=== PATIENT | female | born 1975 | race Caucasian/White ===

== ENCOUNTER 2017-08-31 16:51 | Emergency (ER) | payer MEDICAID, SELFPAY ==
[2017-08-31 16:53] VITALS: BP 95/66; PULSE 115; RESP 16; TEMP 36.8; O2SAT 100; BMI 19.5
--- NOTE | 2017-08-31 17:33 | ED.DCSUM_ITS ---
- ER Visit Summary Date of Service: 08/31/17 Chief Complaint: Paranoid behavior History of Present Illness: The patient is a 42 F brought in by police for paranoid behavior. Patient states she feels like people are following her. She feels like her Facebook account was hacked. She is concerned that people think she has child pornography. She is not taking her medications because she believes they are poison. She told her boyfriend that she wanted to blow her head off. She denies medical problems. She admits to occasional alcohol use. Denies illicit drug use. She was pink slipped by the police. Physical Examination: Vitals are stable. Patient is afebrile. Alert no acute distress. HEENT exam is unremarkable. Neck is supple. Lungs are clear and equal bilaterally. Heart is regular rate and rhythm. Abdomen is soft nontender nondistended. Extremities are unremarkable. Skin is warm and dry. No focal neurologic deficit. Agitated and paranoid. Remainder of exam is unremarkable. Emergency Department Course and Treatment: She is given Ativan p.o. CBC, chemistries unremarkable. HCG negative. Alcohol is negative. Tox positive for methamphetamine and THC. Discussed with the counseling center for evaluation. Disposition: Per counseling center Impression: Paranoid behavior, suicidal ideation This note was generated with [employer] dictation software. It may contain incorrect words, spelling, and punctuation that were not noted in review of the chart prior to signing ED Disposition - Plan for ED Patient: Chief Complaint: Mental Health Referrals: Care Physician,No Primary [Primary Care Provider] -
[2017-08-31] MEDS: LORazepam 1 MG Tablet PO (17:34)
--- NOTE | 2017-08-31 17:40 | ED.RN ---
PT SITTING UPRIGHT IN BED, SCREAMS AND CURSES AT THIS RN. STATES I'M SO TIRED OF ALL THIS SHIT. SO DEE [facility]ISTA CALLED TO COME SITE WITH PT PER PT REQUEST. MEDICATED WITH ATIVAN.
[2017-08-31 17:48] LABS: Absolute Lymphocyte Count 2.55 X10^3/ul (0.83-4.51); Absolute Neutrophil Count 6.3 X10^3/uL (2.0-7.7); Basophil# 0.02 X10^3/uL; Basophil% 0.2 % (0-1); Eosinophil# 0.16 X10^3/uL; Eosinophils% 1.6 % (0-5); Hematocrit 41.8 % (37-47); Hemoglobin 14.2 g/dl (12.0-15.0); Lymphocyte # 2.55 X10^3/ul (4.0); Lymphocyte % 25.9 % (19-41); Mean Corpuscular Volume 85.3 fL (81-99); Mean Platelet Vol. 9.7 fl (6.2-12.0); Monocyte# 0.81 X10^3/uL; Monocyte% 8.2 % (0-10); Neutrophil # 6.29 X10^3/uL (2.7-7.7); Neutrophil % 63.9 % (47-70); Platelet Count 467 K/mm3 (150-450); RBC Distribution Width CV 13.4 % (11.6-14.6); RBC Distribution Width SD 41.6 fl (35.1-43.9); White Blood Count 9.9 K/mm3 (4.4-11.0)
[2017-08-31 17:52] LABS: Anion Gap 13 (5-15); BUN 16 mg/dL (7-18); BUN/Creat Ratio 21.4 RATIO (10-20); Chloride 104 mmol/L (98-107); Creatinine, Serum 0.75 mg/dL (0.55-1.02); EST Glomerular Filtration Rate 89 mL/min (>60); Est Glom Filt Rate - Afr Amer 108 mL/min (>60); Estimated Creatinine Clearance 68.54 ml/min; Glucose 95 mg/dL (74-106); Potassium 3.8 mmol/L (3.5-5.1); Sodium Level 140 mmol/L (136-145)
[2017-08-31 18:07] LABS: POSITIVE COUNT NO; POSITIVE DIFFERENTIAL NO; POSITIVE MORPHOLOGY NO
[2017-08-31 18:18] LABS: Pregnancy, Serum, hCG Quali. NEGATIVE Negative (0-9 Nonpreg)
--- NOTE | 2017-08-31 18:25 | ED.RN ---
PT SITTING UP IN BED, TEARFUL BUT COOPERATIVE AT THIS TIME. OBTAINED URINE SAMPLE, ANOTHER BLANKET GIVEN. SANDWICH, COOKIES, SNACK MIX AND COFFEE GIVEN TO PT PER REQUEST. REFUSES TO LET THIS RN OBTAIN VITALS AT THIS TIME.
--- NOTE | 2017-08-31 18:28 | ED.RN ---
PT DENIES SUICIDAL OR HOMICIDAL IDEATIONS, DENIES AUDITORY OR VISUAL HALLUCINATIONS. SEE PINK SLIP BY POLICE, SO STATES PT THREATENED TO BLOW HEAD OFF. PER SO ALSO HALLUCINATING.
[2017-08-31 19:00] VITALS: RESP 16
[2017-08-31 19:18] LABS: Amphetamine Urine VISTA POSITIVE (<1000 ng/mL); Barbiturate Urine VISTA NEGATIVE (< 200 ng/mL); Benzodiazepine Urine VISTA NEGATIVE (< 200 ng/mL); Cocaine Urine VISTA NEGATIVE (< 300 ng/mL); Ecstacy Urine VISTA POSITIVE (< 500 ng/mL); Methadone Urine VISTA NEGATIVE (< 300 ng/mL); PCP Urine VISTA NEGATIVE (< 25 ng/mL); THC Urine VISTA POSITIVE (< 50 ng/mL); Vista UDS pH Range 6
[2017-08-31 20:00] VITALS: RESP 18
[2017-08-31 21:00] VITALS: RESP 18
[2017-08-31 22:00] VITALS: RESP 16
[2017-08-31 23:00] VITALS: RESP 14
[2017-09-01] VITALS (9 sets, daily range): PULSE 102–112; RESP 14–20; O2SAT 96
[2017-09-01] MEDS: LORazepam 1 MG Tablet PO (06:02)
--- NOTE | 2017-09-01 06:11 | NURSING ---
PT REFUSED TO LET RN TAKE VITAL SIGNS
--- NOTE | 2017-09-01 07:09 | NURSING ---
CALLED [facility] FOR TRANSPORT. ETA IS ABOUT 1 HR
--- NOTE | 2017-09-01 08:30 | NURSING ---
Addendum entered by Lisa Massey 09/01/17 08:32: ATTEMPTED TO CALL BOTH PARTIES PER REQUEST BY PT TO NOTIFY OF TRANSFER TO [facility] Original Note: ATTEMPTED TO CALL BOTH PT'S BOYFRIEND (DEE) AND FATHER (EZIO) WITHOUT SUCCESS. BOTH HAD NO ANSWER TO TELEPHONE CALL AND NO VM TO LEAVE ANSWER.
== END 2017-09-01 08:18 ==
PROVIDERS: Emergency Provider Emergency Medicine
DX: R45.851 Suicidal ideations (principal); F60.0 Paranoid personality disorder; Z72.0 Tobacco use
CPT/HCPCS: 80048; 80307; 80320; 84703; 85025; 99284; G0480

== ENCOUNTER 2017-12-27 10:49 | Emergency (ER) | payer MEDICAID, SELFPAY ==
[2017-12-27 10:51] VITALS: BP 152/97; PULSE 112; RESP 18; TEMP 36.8; O2SAT 100; BMI 20.5
[2017-12-27 12:37] LABS: Absolute Lymphocyte Count 2.84 X10^3/ul (0.83-4.51); Absolute Neutrophil Count 8.5 X10^3/uL (2.0-7.7); Basophil# 0.02 X10^3/uL; Basophil% 0.2 % (0-1); Eosinophils% 0.8 % (0-5); Hematocrit 44.2 % (37-47); Hemoglobin 15.3 g/dl (12.0-15.0); Lymphocyte # 2.84 X10^3/ul (4.0); Lymphocyte % 22.7 % (19-41); Mean Corp Hgb Conc 34.6 g/gl (32-36); Mean Corpuscular Hgb 30.1 pg (27.0-32.0); Mean Platelet Vol. 9.8 fl (6.2-12.0); Monocyte# 0.99 X10^3/uL; Monocyte% 7.9 % (0-10); Neutrophil # 8.51 X10^3/uL (2.7-7.7); Neutrophil % 68.2 % (47-70); POSITIVE COUNT NO; POSITIVE DIFFERENTIAL NO; POSITIVE MORPHOLOGY NO; Platelet Count 386 K/mm3 (150-450); RBC Distribution Width CV 13.2 % (11.6-14.6); RBC Distribution Width SD 41.3 fl (35.1-43.9); Red Blood Count 5.08 M/mm3 (4.2-5.4); White Blood Count 12.5 K/mm3 (4.4-11.0)
[2017-12-27 12:51] LABS: Anion Gap 9 (5-15); BUN 19 mg/dL (7-18); BUN/Creat Ratio 24.3 RATIO (10-20); Calcium,Total 9.8 mg/dL (8.5-10.1); Chloride 104 mmol/L (98-107); Creatinine, Serum 0.78 mg/dL (0.55-1.02); EST Glomerular Filtration Rate 85 mL/min (>60); Est Glom Filt Rate - Afr Amer 102 mL/min (>60); Estimated Creatinine Clearance 66.11 ml/min; Glucose 102 mg/dL (74-106); Sodium Level 139 mmol/L (136-145)
[2017-12-27 12:57] LABS: Pregnancy, Serum, hCG Quali. NEGATIVE Negative (0-9 Nonpreg)
[2017-12-27] MEDS: Haloperidol Lactate 5 MG/ML Vial 2 MG IM ×2 (13:04→16:23)
[2017-12-27] MEDS: Midazolam 2 MG/2 ML Syringe IM ×2 (13:04→16:23)
[2017-12-27 14:20] VITALS: PULSE 81; RESP 16; O2SAT 99
[2017-12-27 14:39] LABS: Amphetamine Urine VISTA POSITIVE (<1000 ng/mL); Barbiturate Urine VISTA NEGATIVE (< 200 ng/mL); Benzodiazepine Urine VISTA POSITIVE (< 200 ng/mL); Cocaine Urine VISTA NEGATIVE (< 300 ng/mL); Ecstacy Urine VISTA NEGATIVE (< 500 ng/mL); Methadone Urine VISTA NEGATIVE (< 300 ng/mL); PCP Urine VISTA NEGATIVE (< 25 ng/mL); THC Urine VISTA POSITIVE (< 50 ng/mL); Vista UDS pH Range 6
--- NOTE | 2017-12-27 15:13 | ED.VISSUMM ---
- ER Visit Summary Date of Service: 12/27/17 Chief Complaint: Brought to hospital by EMS because of change in behavior History of Present Illness: The patient is a 42 F who according to 7th grade social studies teacher from [facility] has a psychiatric disorder. There are no old records for review. Patient is not cooperative. She has demonstrated paranoid ideation and has abnormal thought processes and judgment. She is not cooperative and does not wish to answer any questions. She informed me that she answered a number of questions. She asked if I would let her go home. She was informed that she cannot go home. Patient began to scream. Physical Examination: Vital signs are marked for an elevated blood pressure 152/91. Heart rate 112. This may be for multiple reasons. Head is atraumatic normocephalic. Pupils are equal round reactive. Extraocular muscles are intact. TMs are pearly white with landmarks noted. Nares patent with no drainage. Posterior pharynx without erythema or exudate. Uvula is midline. There is no dysphonia or dysphasia. Trachea is midline. There is no stridor with auscultation of the neck. Insert cardiopulmonary exam. Unable to perform abdominal or neuro exam. Test Results: White count slightly elevated 12.5 which may be secondary to drug use. Electro panels unremarkable. Serum test is negative. Alcohol is negative. Tox screen is positive for benzodiazepines, amphetamine and cannabis. Emergency Department Course and Treatment: Appropriate screening tests were obtained for medical clearance for psychiatric admission. Treatment Plan: Because of patient's behavior she was treated with IM Haldol and Versed. There essentially is been no change in her behavior. Disposition: [facility] the [facility] 7th grade social studies teacher did see her and is working on disposition to psychiatric facility. Impression: 1. Acute psychosis 2. Paranoid ideation 3. Inability to care for self 4. Illicit drug use This note was generated with [employer] dictation software. It may contain incorrect words, spelling, and punctuation that were not noted in review of the chart prior to signing ED Disposition - Plan for ED Patient: Chief Complaint: Mental Health Referrals: Care Physician,No Primary [Primary Care Provider] -
--- NOTE | 2017-12-27 15:16 | ED.DCSUM_ITS ---
- ER Visit Summary Date of Service: 12/27/17 Chief Complaint: Brought to hospital by EMS because of change in behavior History of Present Illness: The patient is a 42 F who according to acid conditioning worker from [facility] has a psychiatric disorder. There are no old records for review. Patient is not cooperative. She has demonstrated paranoid ideation and has abnormal thought processes and judgment. She is not cooperative and does not wish to answer any questions. She informed me that she answered a number of questions. She asked if I would let her go home. She was informed that she cannot go home. Patient began to scream. Physical Examination: Vital signs are marked for an elevated blood pressure 152/ 91. Heart rate 112. This may be for multiple reasons. Head is atraumatic normocephalic. Pupils are equal round reactive. Extraocular muscles are intact. TMs are pearly white with landmarks noted. Nares patent with no drainage. Posterior pharynx without erythema or exudate. Uvula is midline. There is no dysphonia or dysphasia. Trachea is midline. There is no stridor with auscultation of the neck. Insert cardiopulmonary exam. Unable to perform abdominal or neuro exam. Test Results: White count slightly elevated 12.5 which may be secondary to drug use. Electro panels unremarkable. Serum test is negative. Alcohol is negative. Tox screen is positive for benzodiazepines, amphetamine and cannabis. Emergency Department Course and Treatment: Appropriate screening tests were obtained for medical clearance for psychiatric admission. Treatment Plan: Because of patient's behavior she was treated with IM Haldol and Versed. There essentially is been no change in her behavior. Disposition: [facility]ady the [facility] acid conditioning worker did see her and is working on disposition to psychiatric facility. Impression: 1. Acute psychosis 2. Paranoid ideation 3. Inability to care for self 4. Illicit drug use This note was generated with [employer] dictation software. It may contain incorrect words, spelling, and punctuation that were not noted in review of the chart prior to signing ED Disposition - Plan for ED Patient: Chief Complaint: Mental Health Referrals: Care Physician,No Primary [Primary Care Provider] -
[2017-12-27 15:24] VITALS: BP 127/88; PULSE 109; RESP 16; O2SAT 100
[2017-12-27 17:57] VITALS: BP 104/65; PULSE 85; RESP 19; O2SAT 100
--- NOTE | 2017-12-27 18:16 | ED.RN ---
[facility] WILL BE COMING TO TRANSFER PATIENT BETWEEN 8:30-9:00
[2017-12-27 18:35] VITALS: BP 103/74; PULSE 78; RESP 18; O2SAT 96
[2017-12-27 19:15] VITALS: BP 119/84; PULSE 85; RESP 18; O2SAT 99
== END 2017-12-27 20:59 ==
PROVIDERS: Emergency Provider Emergency Medicine
DX: F22 Delusional disorders (principal); F15.90 Other stimulant use, unspecified, uncomplicated; F12.90 Cannabis use, unspecified, uncomplicated; Z72.0 Tobacco use
CPT/HCPCS: 80048; 80307; 80320; 84703; 85025; 96372; 99285; J7030; G0480

== ENCOUNTER 2018-02-15 10:52 | Emergency (ER) | payer MEDICAID, SELFPAY ==
[2018-02-15 10:55] VITALS: BP 122/100; PULSE 108; PULSE 115; RESP 20; RESP 22; TEMP 37.1; O2SAT 98; O2SAT 99; BMI 22.1
[2018-02-15] MEDS: LORazepam 2 MG/ML Syringe 1 MG IV (11:17)
[2018-02-15 11:35] LABS: Absolute Lymphocyte Count 2.42 X10^3/ul (0.83-4.51); Absolute Neutrophil Count 7.3 X10^3/uL (2.0-7.7); Basophil# 0.02 X10^3/uL; Basophil% 0.2 % (0-1); Hematocrit 40.9 % (37-47); Hemoglobin 13.4 g/dl (12.0-15.0); Lymphocyte # 2.42 X10^3/ul (4.0); Lymphocyte % 23.3 % (19-41); Mean Corp Hgb Conc 32.8 g/gl (32-36); Mean Corpuscular Hgb 29.6 pg (27.0-32.0); Mean Corpuscular Volume 90.3 fL (81-99); Mean Platelet Vol. 9.5 fl (6.2-12.0); Monocyte# 0.57 X10^3/uL; Monocyte% 5.5 % (0-10); Neutrophil # 7.27 X10^3/uL (2.7-7.7); Neutrophil % 69.8 % (47-70); Platelet Count 323 K/mm3 (150-450); RBC Distribution Width SD 42.6 fl (35.1-43.9); Red Blood Count 4.53 M/mm3 (4.2-5.4); White Blood Count 10.4 K/mm3 (4.4-11.0)
[2018-02-15 11:36] LABS: POSITIVE COUNT NO; POSITIVE DIFFERENTIAL NO; POSITIVE MORPHOLOGY NO
[2018-02-15 11:59] VITALS: RESP 20
[2018-02-15 12:15] LABS: Bacteria 0 SEEN /hpf (None Seen); Mucous, Urine 0 SEEN /hpf (<or=2+); Red Blood Cells-Urine 0 SEEN /hpf (0-5); Squamous Epithelial Cells - UA 0 SEEN /hpf (5-10)
[2018-02-15 12:25] VITALS: BP 122/102; PULSE 108; RESP 20; O2SAT 95
[2018-02-15 12:26] LABS: Color, Urine Yellow (Yellow); Glucose, Dipstick Normal (Normal); Ketone-Dipstick Negative (Negative); Leukocyte Esterase-Dipstick 25 /ul (Negative); Nitrite-Dipstick Negative (Negative); Occult Blood-Urine Negative /ul (Negative); Protein-Dipstick Negative (Negative); Urine Bilirubin Dipstick Negative (Negative); Urine Clarity Sl. Cloudy (Clear); Urine Urobilinogen Normal (Normal)
--- NOTE | 2018-02-15 12:27 | ED.RN ---
attempted to call pt's father per pt's request, was unable to get in contact with him at this time.
[2018-02-15 12:33] LABS: Amphetamine Urine VISTA NEGATIVE (<1000 ng/mL); Barbiturate Urine VISTA NEGATIVE (< 200 ng/mL); Benzodiazepine Urine VISTA NEGATIVE (< 200 ng/mL); Cocaine Urine VISTA NEGATIVE (< 300 ng/mL); Ecstacy Urine VISTA NEGATIVE (< 500 ng/mL); Methadone Urine VISTA NEGATIVE (< 300 ng/mL); PCP Urine VISTA NEGATIVE (< 25 ng/mL); THC Urine VISTA POSITIVE (< 50 ng/mL); Vista UDS pH Range 6
[2018-02-15] MEDS: LORazepam 2 MG/ML Syringe 0.5 MG IV (12:40)
[2018-02-15 12:43] LABS: Transitional Epithelial - Ur 0-5 SEEN /hpf (0-5); White Blood Cells 0-5 SEEN /hpf (0-5)
[2018-02-15 13:16] VITALS: RESP 14
[2018-02-15 14:22] LABS: Anion Gap 10 (5-15); BUN 13 mg/dL (7-18); BUN/Creat Ratio 19.5 RATIO (10-20); Calcium,Total 9.4 mg/dL (8.5-10.1); Chloride 105 mmol/L (98-107); Creatinine, Serum 0.67 mg/dL (0.55-1.02); EST Glomerular Filtration Rate 102 mL/min (>60); Est Glom Filt Rate - Afr Amer 123 mL/min (>60); Estimated Creatinine Clearance 76.97 ml/min; Glucose 88 mg/dL (74-106); Sodium Level 140 mmol/L (136-145); Thyroid Stim Hormone (TSH) 0.29 uIU/mL (0.358-3.74)
--- NOTE | 2018-02-15 15:12 | ED.DCSUM_ITS ---
- ER Visit Summary Date of Service: 02/15/18 Chief Complaint: Anxiety History of Present Illness: The patient is a 42 F brought in by EMS for anxiety. Patient is sobbing and rocking back and forth. She states several factors have contributed to her worsening anxiety. After further interaction with nursing staff they state the patient tells them that she has no place to live and does not feel comfortable living with her boyfriend any longer. There are drugs in the house with a boyfriend lives. Patient admits to using meth. She states her last use was on February 12. Patient denies suicidal or homicidal ideation. Physical Examination: Blood pressure is 122/100, temperature 98.8, heart rate 115, respiratory rate 22, pulse ox 99% on room air. Patient sitting upright in the bed, rocking back and forth and crying. Heart is regular rhythm and slightly tachycardic. Lung sounds are clear. Abdomen is soft and nontender. Patient denies suicidal or homicidal ideation. Test Results: CBC and chemistry studies unremarkable. Urinalysis negative. TSH slightly low at 0.29. Tox screen is positive for cannabinoids. EtOH is negative. Emergency Department Course and Treatment: Patient was given 1 mg of IV Ativan followed later by 0.5 mg of IV Ativan. She was seen by counselor from the counseling center. She feels the patient would be a good candidate for the outpatient intensive therapy program through behavioral health. Patient is given information on this. Nursing staff did also state that when the patient stops to ask to go out to smoke she has no crying or signs of distress. When I went back into reevaluate the patient she is sitting in a bedside chair fully dressed. She is still crying. She states that she feels like she is crawling out of her skin. I offered her Benadryl to help with this. Patient stood with the side of the bed, stomped her feet, and stated I am a drug addict. Benadryl will not help me. Patient tells me that she needs additional Ativan. I advised her I would not be writing her Ativan. At this time she is to follow-up with behavioral health. I will also refer her to a primary care physician for further follow-up including thyroid evaluation. Treatment Plan: [] Disposition: Discharge Impression: Anxiety This note was generated with [email or web address] dictation software. It may contain incorrect words, spelling, and punctuation that were not noted in review of the chart prior to signing ED Disposition - Plan for ED Patient: Chief Complaint: Anxiety Referrals: Care Physician,No Primary [Primary Care Provider] -
[2018-02-15 15:21] VITALS: RESP 20
--- NOTE | 2018-02-15 15:22 | ED.RN ---
PT WAS HAVING MULTIPLE EMOTIONAL OUTBURSTS WITH SCREAMING AND CRYING, WITH PT STATING NO ONE IS GOING TO HELP ME, EVERYONE IS OUT TO GET ME. I SAT BEDSIDE WITH PT USING THERAPEUTIC COMMUNICATION TO HELP PT DEVELOP A PLAN TO SUCCEED WITH SOBRIETY. PT DECLINES ALL HELP AND SUGGESTIONS OFFERED. PT WALKED OFF UNIT VIA AMBULATION PRIOR TO RECEIVING D/C INSTRUCTIONS AFTER BEING INFORMED THAT SHE WOULD NOT BE RECEIVING A PRESCRIPTION FOR ATIVAN. OFF UNIT VIA AMBULATION STEADY GAIT.
== END 2018-02-15 15:27 | disposition home or self-care (01) ==
PROVIDERS: Emergency Provider Emergency Medicine
DX: F41.9 Anxiety disorder, unspecified (principal); Z72.0 Tobacco use; Z79.899 Other long term (current) drug therapy
CPT/HCPCS: 80048; 80307; 80320; 81001; 84443; 85025; 96374; 96376; 99284; A4216; G0480

== ENCOUNTER 2018-03-30 17:43 | Emergency (ER) | payer SELFPAY ==
[2018-03-30 17:44] VITALS: PULSE 92; RESP 26; TEMP 36.8; O2SAT 99; BMI 20.7
[2018-03-30] MEDS: LORazepam 2 MG/ML Syringe 1 MG IV (18:43)
[2018-03-30 18:45] VITALS: RESP 14
[2018-03-30 19:14] LABS: Absolute Lymphocyte Count 2.87 X10^3/ul (0.83-4.51); Absolute Neutrophil Count 7.5 X10^3/uL (2.0-7.7); Basophil# 0.03 X10^3/uL; Basophil% 0.3 % (0-1); Eosinophil# 0.16 X10^3/uL; Eosinophils% 1.4 % (0-5); Hematocrit 43.9 % (37-47); Hemoglobin 14.5 g/dl (12.0-15.0); Lymphocyte # 2.87 X10^3/ul (4.0); Lymphocyte % 25.1 % (19-41); Mean Corpuscular Hgb 29.8 pg (27.0-32.0); Mean Corpuscular Volume 90.3 fL (81-99); Mean Platelet Vol. 9.4 fl (6.2-12.0); Monocyte# 0.85 X10^3/uL; Monocyte% 7.4 % (0-10); Neutrophil # 7.52 X10^3/uL (2.7-7.7); Neutrophil % 65.6 % (47-70); POSITIVE COUNT NO; POSITIVE DIFFERENTIAL NO; POSITIVE MORPHOLOGY NO; Platelet Count 342 K/mm3 (150-450); RBC Distribution Width CV 12.9 % (11.6-14.6); RBC Distribution Width SD 42.2 fl (35.1-43.9); Red Blood Count 4.86 M/mm3 (4.2-5.4); White Blood Count 11.5 K/mm3 (4.4-11.0)
[2018-03-30 19:18] VITALS: RESP 14
[2018-03-30 19:28] LABS: Alcohol, Blood (Medical)-Serum < 3.0 mg/dL
[2018-03-30 19:41] LABS: Anion Gap 6 (5-15); BUN 8 mg/dL (7-18); Calcium,Total 9.3 mg/dL (8.5-10.1); Chloride 102 mmol/L (98-107); EST Glomerular Filtration Rate 83 mL/min (>60); Est Glom Filt Rate - Afr Amer 100 mL/min (>60); Estimated Creatinine Clearance 67.72 ml/min; Glucose 127 mg/dL (74-106); Potassium 3.6 mmol/L (3.5-5.1); Sodium Level 135 mmol/L (136-145)
[2018-03-30 19:47] LABS: Pregnancy, Serum, hCG Quali. NEGATIVE Negative (0-9 Nonpreg)
[2018-03-30 21:18] VITALS: BP 141/80; PULSE 89; RESP 14; O2SAT 96
[2018-03-30 21:47] LABS: Mucous, Urine 0 SEEN /hpf (<or=2+)
[2018-03-30 21:55] LABS: Color, Urine Yellow (Yellow); Glucose, Dipstick Normal (Normal); Ketone-Dipstick Negative (Negative); Leukocyte Esterase-Dipstick 500 /ul (Negative); Nitrite-Dipstick Positive (Negative); Occult Blood-Urine 25 /ul (Negative); Protein-Dipstick 30 mg/dl (Negative); Urine Bilirubin Dipstick Negative (Negative); Urine Clarity Sl. Cloudy (Clear); Urine Urobilinogen 1 mg/dl (Normal); Urine pH 6.5 (5.0 - 8.0)
[2018-03-30 21:59] LABS: Red Blood Cells-Urine 0-5 SEEN /hpf (0-5); Squamous Epithelial Cells - UA 0-5 SEEN /hpf (5-10); White Blood Cells 50-100 SEEN /hpf (0-5)
[2018-03-30 22:00] LABS: Bacteria 3+ /hpf (None Seen)
[2018-03-30 22:03] LABS: Amphetamine Urine VISTA POSITIVE (<1000 ng/mL); Barbiturate Urine VISTA NEGATIVE (< 200 ng/mL); Benzodiazepine Urine VISTA NEGATIVE (< 200 ng/mL); Cocaine Urine VISTA NEGATIVE (< 300 ng/mL); Ecstacy Urine VISTA NEGATIVE (< 500 ng/mL); Methadone Urine VISTA NEGATIVE (< 300 ng/mL); PCP Urine VISTA NEGATIVE (< 25 ng/mL); THC Urine VISTA POSITIVE (< 50 ng/mL); Vista UDS pH Range 6
--- NOTE | 2018-03-30 22:41 | ED.VISSUMM ---
- ER Visit Summary Date of Service: 03/30/18 Chief Complaint: customs and immigration officer thought I should come to the emergency department History of Present Illness: The patient is a 42 F who has history of bipolar affective disorder, illicit drug use was brought to the emergency room by police. She was not pink slip. There was no suicidal or homicidal ideation. She initially was verbally abusive and agitated. She initially would not allow the nurse to obtain her vitals, exam and her or establish IV and draw blood. When I entered the room she began to yell. I informed her that she needs to be cooperative. She informed me that the only reason she is here is because the restoration officer told her that it would be in her best interest. She states she has been with her boyfriend for the past 10 years. I was informed by the crisis license rn social services that boyfriend will not evicted from the house because he feels sorry for her. She reports that she has not left the house in 3 years. She then began to yell stating that she never said that. She was explaining and answered a question I asked and then began to talk about dog saliva and eye infection. Patient does admit to smoking and admits to methamphetamine use. She also admits that she has not been compliant with her medication. Physical Examination: Vital signs noted. Initially blood pressure was not obtainable. Vital signs that were documented were normal. Pressure is elevated 141/80. Head is atraumatic normocephalic. Pupils are equal round reactive. Extraocular muscles are intact. TMs are pearly white with landmarks noted. Nares patent with no drainage. Posterior pharynx without erythema or exudate. Uvula is midline. There is no dysphonia or dysphasia. Trachea is midline. There is no stridor with auscultation of the neck. Heart is regular without murmur, gallop or rub. S1 and S2 are normal. Lungs are clear to auscultation with good movement of air bilaterally. No evidence of self-inflicted injury. Neuro exam is nonfocal. She denies suicidal homicidal ideation peer she does admit to methamphetamine use. Her speech is pressured. Her thought is fragmented and there is flight of ideas. She is easily agitated and irritable. Test Results: White count is slightly elevated 11.5 which is insignificant. Basic medical panel reveals a glucose of 127, which is insignificant. Alcohol negative. Tox was positive for cannabis and amphetamines. test was negative. Emergency Department Course and Treatment: IV was established she was treated with 1 mg of Ativan with marked improvement in her behavior. Treatment Plan: She was assessed by the licensed guide who will arrange outpatient follow-up and drug counseling Disposition: Discharged to home Impression: 1. Acute psychosis and agitation secondary to amphetamine use 2. Hypomania secondary to amphetamine use 3. History of bipolar affective disorder This note was generated with [employer] dictation software. It may contain incorrect words, spelling, and punctuation that were not noted in review of the chart prior to signing ED Disposition - Plan for ED Patient: Disposition: Home or Assisted Living Chief Complaint: Mental Health Instructions: ED Manic Depression, ED Drug Abuse General Referrals: Care Physician,No Primary [Primary Care Provider] - Counseling,Center [GROUP OF PHYSICIANS] - Keep Jud appointment
--- NOTE | 2018-03-30 22:46 | ED.DCSUM_ITS ---
- ER Visit Summary Date of Service: 03/30/18 Chief Complaint: escrow officer thought I should come to the emergency department History of Present Illness: The patient is a 42 F who has history of bipolar affective disorder, illicit drug use was brought to the emergency room by police. She was not pink slip. There was no suicidal or homicidal ideation. She initially was verbally abusive and agitated. She initially would not allow the nurse to obtain her vitals, exam and her or establish IV and draw blood. When I entered the room she began to yell. I informed her that she needs to be cooperative. She informed me that the only reason she is here is because the training and development officer told her that it would be in her best interest. She states she has been with her boyfriend for the past 10 years. I was informed by the crisis license social media project manager that boyfriend will not evicted from the house because he feels sorry for her. She reports that she has not left the house in 3 years. She then began to yell stating that she never said that. She was explaining and answered a question I asked and then began to talk about dog saliva and eye infection. Patient does admit to smoking and admits to methamphetamine use. She also admits that she has not been compliant with her medication. Physical Examination: Vital signs noted. Initially blood pressure was not obtainable. Vital signs that were documented were normal. Pressure is elevated 141/80. Head is atraumatic normocephalic. Pupils are equal round reactive. Extraocular muscles are intact. TMs are pearly white with landmarks noted. Nares patent with no drainage. Posterior pharynx without erythema or exudate. Uvula is midline. There is no dysphonia or dysphasia. Trachea is midline. There is no stridor with auscultation of the neck. Heart is regular without murmur, gallop or rub. S1 and S2 are normal. Lungs are clear to auscultation with good movement of air bilaterally. No evidence of self-inflicted injury. Neuro exam is nonfocal. She denies suicidal homicidal ideation peer she does admit to methamphetamine use. Her speech is pressured. Her thought is fragmented and there is flight of ideas. She is easily agitated and irritable. Test Results: White count is slightly elevated 11.5 which is insignificant. Basic medical panel reveals a glucose of 127, which is insignificant. Alcohol negative. Tox was positive for cannabis and amphetamines. test was negative. Emergency Department Course and Treatment: IV was established she was treated with 1 mg of Ativan with marked improvement in her behavior. Treatment Plan: She was assessed by the licensed embalmer who will arrange outpatient follow-up and drug counseling Disposition: Discharged to home Impression: 1. Acute psychosis and agitation secondary to amphetamine use 2. Hypomania secondary to amphetamine use 3. History of bipolar affective disorder This note was generated with [employer] dictation software. It may contain incorrect words, spelling, and punctuation that were not noted in review of the chart prior to signing ED Disposition - Plan for ED Patient: Disposition: Home or Assisted Living Chief Complaint: Mental Health Instructions: ED Manic Depression, ED Drug Abuse General Referrals: Care Physician,No Primary [Primary Care Provider] - Counseling,Center [GROUP OF PHYSICIANS] - Keep Jud appointment
[2018-03-30 23:00] VITALS: BP 132/77; PULSE 85; RESP 14; O2SAT 98
== END 2018-03-31 00:20 | disposition home or self-care (01) ==
PROVIDERS: Emergency Provider Emergency Medicine
DX: F23 Brief psychotic disorder (principal); R45.1 Restlessness and agitation; F30.8 Other manic episodes; F15.90 Other stimulant use, unspecified, uncomplicated; F31.9 Bipolar disorder, unspecified; Z91.14 Patient's other noncompliance with medication regimen; Z72.0 Tobacco use; Z79.899 Other long term (current) drug therapy
CPT/HCPCS: 80048; 80307; 80320; 81001; 84443; 84703; 85025; 96374; 99282; A4216; G0480

== ENCOUNTER 2018-04-01 11:30 | Emergency (ER) | payer SELFPAY ==
[2018-04-01] VITALS (9 sets, daily range): BP systolic 113–128; BP diastolic 81–94; PULSE 70–125; RESP 14–25; TEMP 36.3–36.9; O2SAT 98; BMI 19.5
--- NOTE | 2018-04-01 11:35 | ED.RN ---
pt arrives to er via pd. pt is pink slipped by pd. pt denies suicidal ideation. pt is very agitated, anxious and had intermittent periods of yelling with periods of calm and pleasant between. states last pot use was this am and last meth use was a few days ago.
--- NOTE | 2018-04-01 11:52 | NURSING ---
CONTACT LIZETH MARTINEZ [phone]
[2018-04-01] MEDS: LORazepam 2 MG/ML Syringe IM (12:01)
--- NOTE | 2018-04-01 12:02 | ED.RN ---
pt angry and swearing loudly. Pt refused haldol. Ativan given. PT states she will not leave or go anyplace against her will or she will raise holy hell. PT informed to keep her voice down and not swear.
[2018-04-01 12:08] LABS: Absolute Lymphocyte Count 2.19 X10^3/ul (0.83-4.51); Absolute Neutrophil Count 5.8 X10^3/uL (2.0-7.7); Basophil# 0.04 X10^3/uL; Basophil% 0.4 % (0-1); Eosinophil# 0.17 X10^3/uL; Eosinophils% 1.9 % (0-5); Hematocrit 40.9 % (37-47); Lymphocyte # 2.19 X10^3/ul (4.0); Lymphocyte % 24.4 % (19-41); Mean Corp Hgb Conc 34.2 g/gl (32-36); Mean Corpuscular Hgb 30.7 pg (27.0-32.0); Mean Corpuscular Volume 89.7 fL (81-99); Mean Platelet Vol. 9.5 fl (6.2-12.0); Monocyte# 0.73 X10^3/uL; Monocyte% 8.1 % (0-10); Neutrophil # 5.84 X10^3/uL (2.7-7.7); Neutrophil % 65.1 % (47-70); Platelet Count 363 K/mm3 (150-450); RBC Distribution Width CV 12.5 % (11.6-14.6); RBC Distribution Width SD 40.4 fl (35.1-43.9); Red Blood Count 4.56 M/mm3 (4.2-5.4)
[2018-04-01 12:16] LABS: Anion Gap 7 (5-15); BUN 7 mg/dL (7-18); BUN/Creat Ratio 8.3 RATIO (10-20); Calcium,Total 8.8 mg/dL (8.5-10.1); Chloride 103 mmol/L (98-107); Creatinine, Serum 0.84 mg/dL (0.55-1.02); EST Glomerular Filtration Rate 78 mL/min (>60); Est Glom Filt Rate - Afr Amer 94 mL/min (>60); Glucose 95 mg/dL (74-106); POSITIVE COUNT NO; POSITIVE DIFFERENTIAL NO; POSITIVE MORPHOLOGY NO; Potassium 3.5 mmol/L (3.5-5.1); Sodium Level 136 mmol/L (136-145)
[2018-04-01 12:21] LABS: Pregnancy, Serum, hCG Quali. NEGATIVE Negative (0-9 Nonpreg)
--- NOTE | 2018-04-01 12:38 | ED.RN ---
PT DRINKING COFFEE, TALKING VERY RESPECTFULLY TO SITTER AND HAS A GOOD DEMEANOR WITH HER.
--- NOTE | 2018-04-01 13:23 | NURSING ---
CALLED CRISIS AT [phone]
--- NOTE | 2018-04-01 13:39 | ED.RN ---
WENT TO RESTROOM. SITTER DID NOT OBTAIN URINE SAMPLE. PENDING CRISIS COUNSELOR.
[2018-04-01 14:26] LABS: Amphetamine Urine VISTA POSITIVE (<1000 ng/mL); Barbiturate Urine VISTA NEGATIVE (< 200 ng/mL); Benzodiazepine Urine VISTA NEGATIVE (< 200 ng/mL); Cocaine Urine VISTA NEGATIVE (< 300 ng/mL); Ecstacy Urine VISTA NEGATIVE (< 500 ng/mL); Methadone Urine VISTA NEGATIVE (< 300 ng/mL); PCP Urine VISTA NEGATIVE (< 25 ng/mL); THC Urine VISTA POSITIVE (< 50 ng/mL); Vista UDS pH Range 6
--- NOTE | 2018-04-01 14:27 | EKG12_ITS ---
Test Reason : MENTAL HEALTH Blood Pressure : / mmHG Vent. Rate : 103 BPM Atrial Rate : 103 BPM P-R Int : 148 ms QRS Dur : 072 ms QT Int : 320 ms P-R-T Axes : 069 056 061 degrees QTc Int : 419 ms Sinus tachycardia Otherwise normal ECG Confirmed by KG GUAMAN, KARLA ([id number]), design editor RUSTY KNUTSON ([id number] on 04/03/2018 10:27:16 AM Referred By: EMERY Confirmed By:KARLA SAUL MD
[2018-04-01 14:35] LABS: Bacteria 0 SEEN /hpf (None Seen); Mucous, Urine 0 SEEN /hpf (<or=2+); Red Blood Cells-Urine 0 SEEN /hpf (0-5); Squamous Epithelial Cells - UA 0 SEEN /hpf (5-10); White Blood Cells 0 SEEN /hpf (0-5)
[2018-04-01 14:48] LABS: AST(SGOT) 18 U/L (15-37); Alanine Aminotransfer ALT/SGPT 21 U/L (13-56); Alkaline Phosphatase 87 U/L (45-117); Bilirubin, Direct 0.09 mg/dL (0.00-0.30); Globulin 3.8 g/dL (2.2-4.2); Protein, Total 7.8 g/dL (6.4-8.2)
[2018-04-01 14:52] LABS: Color, Urine Yellow (Yellow); Glucose, Dipstick Normal (Normal); Ketone-Dipstick Negative (Negative); Leukocyte Esterase-Dipstick 25 /ul (Negative); Nitrite-Dipstick Negative (Negative); Occult Blood-Urine Negative /ul (Negative); Protein-Dipstick Negative (Negative); Specific Gravity, Urine 1.005 (1.002-1.030); Urine Bilirubin Dipstick Negative (Negative); Urine Clarity Clear (Clear); Urine Urobilinogen Normal (Normal)
[2018-04-01 15:01] LABS: Amorphous Sediment 1+
--- NOTE | 2018-04-01 15:30 | ED.RN ---
PT WAS INFORMED BY CRISIS COUNSELOR THAT SHE WOULD BE ADMITTED. PT IS NOW VERBALLY SHOUTING, SECURITY AT BEDSIDE. PT IS A FLIGHT RISK AND IS EXCALATING TOWARDS VIOLENCE AGAINST NURSES AND FLIGHT RISK.
--- NOTE | 2018-04-01 15:41 | ED.VISSUMM ---
- ER Visit Summary Date of Service: 04/01/18 Chief Complaint: [Agitation and anxiety] History of Present Illness: The patient is a 42 F [presents the emergency department via the police. Patient's brother called police because patient has been extremely labile and agitated. Patient apparently has been having auditory and visual hallucinations. Patient has history of bipolar disorder and anxiety and has been without her medications apparently for several days. Patient was seen in the emergency department 2 days ago and was discharged to home. Patient apparently per her brother has been a drug addict for over 25 years and has used mostly methamphetamines. Patient will not speak to me or give me any history.] Physical Examination: [HEENT-PERRLA, EOMI. Cranial nerves II through XII grossly intact. TMs clear. Mucous membranes moist. No adenopathy. Cardiovascular-regular rate and rhythm without murmur or ectopy Lungs-clear to auscultation, chest wall stable without crepitus or subcu emphysema Abdomen-normoactive bowel sounds, soft, nontender, no rebound or rigidity, no peritoneal signs. Extremities-intact ?4, normal range of motion, normal pulses, atraumatic] Test Results: [CBC with differential obtained was unremarkable. Chemistries were normal. Liver enzymes were normal. Urine was normal. HCG was negative. Alcohol was negative. Toxicology screen was positive for amphetamines and marijuana.] Emergency Department Course and Treatment: [As I was interviewing the patient patient became acutely aggressive and belligerent. Patient became threatening towards me and threatening me if I did not leave the room. Patient became very uncooperative. Patient was medicated with 2 mg of Ativan and was ordered Haldol which she refused and the nurse withheld it initially. Patient was evaluated by crisis and apparently was willing to speak with the ship worker whom she knew. It was felt that patient would benefit from inpatient evaluation and treatment of suspected psychosis possibly related to methamphetamine use. Patient once again became very belligerent and aggressive and was medicated with Haldol 10 mg IM.] Treatment Plan: [Transfer to psychiatric facility] Disposition: [Transfer] Impression: [Psychosis Methamphetamine abuse THC abuse] This note was generated with [employer] dictation software. It may contain incorrect words, spelling, and punctuation that were not noted in review of the chart prior to signing ED Disposition - Plan for ED Patient: Chief Complaint: Mental Health Referrals: Care Physician,No Primary [Primary Care Provider] -
--- NOTE | 2018-04-01 15:46 | ED.DCSUM_ITS ---
- ER Visit Summary Date of Service: 04/01/18 Chief Complaint: [Agitation and anxiety] History of Present Illness: The patient is a 42 F [presents the emergency department via the police. Patient's brother called police because patient has been extremely labile and agitated. Patient apparently has been having auditory and visual hallucinations. Patient has history of bipolar disorder and anxiety and has been without her medications apparently for several days. Patient was seen in the emergency department 2 days ago and was discharged to home. Patient apparently per her brother has been a drug addict for over 25 years and has used mostly methamphetamines. Patient will not speak to me or give me any history.] Physical Examination: [HEENT-PERRLA, EOMI. Cranial nerves II through XII grossly intact. TMs clear. Mucous membranes moist. No adenopathy. Cardiovascular-regular rate and rhythm without murmur or ectopy Lungs-clear to auscultation, chest wall stable without crepitus or subcu emphysema Abdomen-normoactive bowel sounds, soft, nontender, no rebound or rigidity, no peritoneal signs. Extremities-intact ?4, normal range of motion, normal pulses, atraumatic] Test Results: [CBC with differential obtained was unremarkable. Chemistries w ere normal. Liver enzymes were normal. Urine was normal. HCG was negative. Alcohol was negative. Toxicology screen was positive for amphetamines and marijuana.] Emergency Department Course and Treatment: [As I was interviewing the patient patient became acutely aggressive and belligerent. Patient became threatening towards me and threatening me if I did not leave the room. Patient became very uncooperative. Patient was medicated with 2 mg of Ativan and was ordered Haldol which she refused and the nurse withheld it initially. Patient was evaluated by crisis and apparently was willing to speak with the odd jobs day worker whom she knew. It was felt that patient would benefit from inpatient evaluation and treatment of suspected psychosis possibly related to methamphetamine use. Patient once again became very belligerent and aggressive and was medicated with Haldol 10 mg IM.] Treatment Plan: [Transfer to psychiatric facility] Disposition: [Transfer] Impression: [Psychosis Methamphetamine abuse THC abuse] This note was generated with [employer] dictation software. It may contain incorrect words, spelling, and punctuation that were not noted in review of the chart prior to signing ED Disposition - Plan for ED Patient: Chief Complaint: Mental Health Referrals: Care Physician,No Primary [Primary Care Provider] -
[2018-04-01 17:21] LABS: CPK Total, Creatine Kinase 86 U/L (26-192)
--- NOTE | 2018-04-01 18:18 | ED.RN ---
SPOKE WITH BROTHROSEMARIE HOOKS, UPDATED WITH ADMISSION AND BED INFORMATION.
== END 2018-04-01 18:33 | disposition home or self-care (01) ==
PROVIDERS: Emergency Medicine; Emergency Provider Emergency Medicine
DX: F29 Unspecified psychosis not due to a substance or known physiological condition (principal); F15.10 Other stimulant abuse, uncomplicated; F12.10 Cannabis abuse, uncomplicated; F41.9 Anxiety disorder, unspecified; F31.9 Bipolar disorder, unspecified; Z72.0 Tobacco use
CPT/HCPCS: 36415; 80048; 80076; 80307; 80320; 81001; 82550; 84703; 85025; 93005; 96372; 99283; 99284; G0480

== ENCOUNTER 2018-07-12 09:29 | Emergency (ER) | payer MEDICAID, SELFPAY ==
[2018-07-12 09:30] VITALS: BP 151/93; PULSE 121; RESP 24; TEMP 36.6; O2SAT 98; BMI 21.4
--- NOTE | 2018-07-12 09:55 | CM.ED ---
SOCIAL WORK NOTE:
--- NOTE | 2018-07-12 09:55 | CM.ED ---
SOCIAL WORK NOTE DISCUSSED PATIENT'S CASE WITH DR. STEPHENS. DR. STEPHENS REPORTS PATIENT NEEDING INPATIENT HOSPITALIZATION AND SITTER D/T PARANOIA AND PT IS A FLIGHT RISK. CRISIS TO EVALUATE ONCE MEDICALLY CLEARED. DYLAN ALVAREZ, BROACHER, DESIGN ASSISTANT.
[2018-07-12 10:31] LABS: Absolute Lymphocyte Count 2.54 X10^3/ul (0.83-4.51); Absolute Neutrophil Count 6.6 X10^3/uL (2.0-7.7); Basophil# 0.02 X10^3/uL; Basophil% 0.2 % (0-1); Eosinophil# 0.15 X10^3/uL; Eosinophils% 1.5 % (0-5); Hematocrit 42.9 % (37-47); Hemoglobin 14.1 g/dl (12.0-15.0); Lymphocyte # 2.54 X10^3/ul (4.0); Mean Corp Hgb Conc 32.9 g/gl (32-36); Mean Corpuscular Hgb 29.5 pg (27.0-32.0); Mean Corpuscular Volume 89.7 fL (81-99); Mean Platelet Vol. 9.7 fl (6.2-12.0); Monocyte# 0.78 X10^3/uL; Monocyte% 7.7 % (0-10); Neutrophil # 6.64 X10^3/uL (2.7-7.7); Neutrophil % 65.5 % (47-70); POSITIVE COUNT NO; POSITIVE DIFFERENTIAL NO; POSITIVE MORPHOLOGY NO; Platelet Count 347 K/mm3 (150-450); RBC Distribution Width SD 42.6 fl (35.1-43.9); Red Blood Count 4.78 M/mm3 (4.2-5.4); White Blood Count 10.1 K/mm3 (4.4-11.0)
[2018-07-12] MEDS: Ziprasidone IM 20 MG/ML VIAL IM (10:36)
[2018-07-12 10:47] LABS: ALB/GLOB Ratio 1.2 RATIO (0.9-2.4); AST(SGOT) 18 U/L (15-37); Alanine Aminotransfer ALT/SGPT 25 U/L (13-56); Albumin, Serum 4.5 g/dL (3.2-5.0); Alkaline Phosphatase 98 U/L (45-117); Anion Gap 11 (5-15); BUN 7 mg/dL (7-18); Chloride 107 mmol/L (98-107); Creatinine, Serum 0.64 mg/dL (0.55-1.02); EST Glomerular Filtration Rate 108 mL/min (>60); Est Glom Filt Rate - Afr Amer 130 mL/min (>60); Estimated Creatinine Clearance 79.73 ml/min; Globulin 3.7 g/dL (2.2-4.2); Glucose 99 mg/dL (74-106); Potassium 3.9 mmol/L (3.5-5.1); Protein, Total 8.2 g/dL (6.4-8.2); Sodium Level 140 mmol/L (136-145)
[2018-07-12 11:04] LABS: Pregnancy, Serum, hCG Quali. NEGATIVE Negative (0-9 Nonpreg)
[2018-07-12 11:16] LABS: Alcohol, Blood (Medical)-Serum < 3.0 mg/dL
[2018-07-12 11:21] LABS: Amphetamine Urine VISTA NEGATIVE (<1000 ng/mL); Barbiturate Urine VISTA NEGATIVE (< 200 ng/mL); Benzodiazepine Urine VISTA NEGATIVE (< 200 ng/mL); Cocaine Urine VISTA NEGATIVE (< 300 ng/mL); Ecstacy Urine VISTA NEGATIVE (< 500 ng/mL); Methadone Urine VISTA NEGATIVE (< 300 ng/mL); PCP Urine VISTA NEGATIVE (< 25 ng/mL); THC Urine VISTA POSITIVE (< 50 ng/mL); Vista UDS pH Range 7
[2018-07-12 11:23] VITALS: RESP 14
--- NOTE | 2018-07-12 11:54 | ED.DCSUM_ITS ---
- ER Visit Summary Date of Service: 07/12/18 Chief Complaint: My privacy is being invaded History of Present Illness: The patient is a 43 F who presents on her own by private vehicle for concerns of her privacy. She says that she cannot explain this to me. She has been arguing with her boyfriend who threatened to call police. It is unclear if he actually did call police. The patient has a history of paranoia as well as methamphetamine, cocaine, and marijuana use. She does follow with the counseling center. She denies any suicidal or homicidal thoughts. Physical Examination: She is afebrile. Blood pressure 151/93 and heart rate 121. Respiratory rate 24. Patient is crying and mildly agitated. Very labile. Head and neck grossly atraumatic. Heart regular. Lungs clear. Skin appears normal. Moves all extremities. No suicidal or homicidal thoughts. Patient root s exhibit thoughts of paranoia and delusions. Test Results: Labs normal. negative. Tox positive for marijuana. Alcohol negative. Emergency Department Course and Treatment: Patient treated with Mariodon for severe agitation and psychosis. She did require a sitter because of her severe symptoms. I did complete a pink slip. Workup is unremarkable. She is medically cleared for treatment in inpatient psych facility. Treatment Plan: Crisis will evaluate the patient Disposition: Pending crisis evaluation Impression: 1. Psychosis This note was generated with [employer] dictation software. It may contain incorrect words, spelling, and punctuation that were not noted in review of the chart prior to signing ED Disposition - Plan for ED Patient: Referrals: Care Physician,No Primary [Primary Care Provider] -
--- NOTE | 2018-07-12 12:05 | ED.RN ---
CRISIS AWARE THAT PT IS HERE AND NEEDS SEEN; SPOKE WITH JOSE AND HE HAS NO ETA FOR ME
--- NOTE | 2018-07-12 13:08 | ED.RN ---
PT REQUESTED A PHONE TO CALL OFF WORK AT [employer] IN [place]. THE PHONE NUMBER TO [employer] WAS GIVEN TO PT AND A PHONE. PT THEN ASKED THE STAFF TO CALL OFF FOR HER AT 3PM TODAY. THIS NURSE EXPLAINED THAT THE PT NEEDS TO MAKE THE CALL TO WORK, PT IMMEDIATELY STARTED YELLING YOU DON'T KNOW MY SITUATION THE POLICE COULD BE THERE ARRESTING PEOPLE. THIS NURSE EXITED THE ROOM WITH THE SITTER STILL IN ROOM WITH PT. PT THEN CALMED AND STOPPED YELLING.
[2018-07-12 15:00] VITALS: BP 104/66; PULSE 85; RESP 16; O2SAT 96
--- NOTE | 2018-07-12 16:53 | ED.RN ---
BRODY TRINH WITH CRISIS PT HAS BEEN REFERED TO [facility]
[2018-07-12 19:00] VITALS: BP 97/61; PULSE 60; RESP 16; O2SAT 100
--- NOTE | 2018-07-12 22:18 | ED.RN ---
AT 2147 BIN FROM [facility] CALLED AND THIS NURSE WAS INFORMED THAT BED IS AVAILABLE IF PT HAS TRANSPORTATION. [facility] WAS NOTIFIED AND NOT AVAILABLE UNTIL 0700 07/13/18. THIS NURSE ATTEMPTED TO NOTIFY [facility] OF SAME AT [facility] [phone], NO ONE AVAILABLE TO ANSWER PHONE.
--- NOTE | 2018-07-12 22:45 | ED.RN ---
SPOKE TO [facility] ADMISSIONS OFFICE TO ASSIST WITH FOLLOWUP REGARDING TRANSPORT, THEY ARE AWARE WE ARE UNABLE TO GET TRANSPORT TILL 0700. NURSE TO CALL REPORT IN THE MORNING TO [phone], ASSIGNED TO ROOM 505A
[2018-07-13] VITALS: BP 104/63; PULSE 77; RESP 16; O2SAT 99
[2018-07-13 02:24] VITALS: BP 95/58; PULSE 74; RESP 16; O2SAT 97
[2018-07-13 03:05] VITALS: BP 95/58; PULSE 74; RESP 16; TEMP 36.7; O2SAT 97
[2018-07-13 04:03] VITALS: RESP 16
[2018-07-13 05:54] VITALS: BP 98/42; PULSE 64; RESP 18
[2018-07-13] MEDS: Ziprasidone IM 20 MG/ML VIAL IM (08:06)
[2018-07-13 08:17] VITALS: BP 146/97; PULSE 113; RESP 20; O2SAT 99
== END 2018-07-13 08:18 | disposition home or self-care (01) ==
PROVIDERS: Emergency Provider Emergency Medicine
DX: F29 Unspecified psychosis not due to a substance or known physiological condition (principal); Z72.0 Tobacco use
CPT/HCPCS: 80053; 80307; 80320; 84703; 85025; 96372; 99284; G0480; J3486

== ENCOUNTER 2018-11-05 12:25 | Emergency (ER) | payer SELFPAY ==
[2018-11-05] VITALS (7 sets, daily range): BP systolic 97–124; BP diastolic 57–86; PULSE 71–114; RESP 12–24; TEMP 36.6; O2SAT 92–100; BMI 19.5
[2018-11-05] MEDS: Haloperidol Lactate 5 MG/ML Vial IM (12:57)
[2018-11-05] MEDS: LORazepam 2 MG/ML Syringe IM (12:57)
--- NOTE | 2018-11-05 13:03 | ED.RN ---
JESSEE MARTINEZ [phone]
[2018-11-05 13:58] LABS: Absolute Neutrophil Count 5.9 X10^3/uL (2.0-7.7); Basophil# 0.01 X10^3/uL; Basophil% 0.1 % (0-1); Eosinophil# 0.07 X10^3/uL; Eosinophils% 0.8 % (0-5); Hematocrit 39.3 % (37-47); Hemoglobin 13.2 g/dl (12.0-15.0); Lymphocyte % 24.6 % (19-41); Mean Corp Hgb Conc 33.6 g/gl (32-36); Mean Corpuscular Hgb 29.1 pg (27.0-32.0); Mean Corpuscular Volume 86.8 fL (81-99); Mean Platelet Vol. 9.6 fl (6.2-12.0); Monocyte# 0.71 X10^3/uL; Monocyte% 7.9 % (0-10); Neutrophil # 5.94 X10^3/uL (2.7-7.7); Neutrophil % 66.5 % (47-70); Platelet Count 299 K/mm3 (150-450); RBC Distribution Width CV 12.9 % (11.6-14.6); RBC Distribution Width SD 41.3 fl (35.1-43.9); Red Blood Count 4.53 M/mm3 (4.2-5.4); White Blood Count 8.9 K/mm3 (4.4-11.0)
[2018-11-05 13:59] LABS: POSITIVE COUNT NO; POSITIVE DIFFERENTIAL NO; POSITIVE MORPHOLOGY NO
[2018-11-05 14:10] LABS: Anion Gap 11 (5-15); BUN 11 mg/dL (7-18); BUN/Creat Ratio 15.3 RATIO (10-20); Calcium,Total 9.2 mg/dL (8.5-10.1); Chloride 104 mmol/L (98-107); Creatinine, Serum 0.72 mg/dL (0.55-1.02); EST Glomerular Filtration Rate 93 mL/min (>60); Est Glom Filt Rate - Afr Amer 112 mL/min (>60); Estimated Creatinine Clearance 70.65 ml/min; Glucose 83 mg/dL (74-106); Potassium 3.8 mmol/L (3.5-5.1); Sodium Level 140 mmol/L (136-145)
[2018-11-05 14:26] LABS: Internal QC Validated? YES +Cl - CLEAR BKGD; Pregnancy, Serum, hCG Quali. NEGATIVE Negative
--- NOTE | 2018-11-05 14:37 | ED.RN ---
PT WAS STRAIGHT CATHED BY KAYLYN BUTTERFIELD RN.
[2018-11-05 14:54] LABS: Amphetamine Urine VISTA POSITIVE (<1000 ng/mL); Barbiturate Urine VISTA NEGATIVE (< 200 ng/mL); Benzodiazepine Urine VISTA NEGATIVE (< 200 ng/mL); Cocaine Urine VISTA NEGATIVE (< 300 ng/mL); Ecstacy Urine VISTA NEGATIVE (< 500 ng/mL); Methadone Urine VISTA NEGATIVE (< 300 ng/mL); PCP Urine VISTA NEGATIVE (< 25 ng/mL); THC Urine VISTA POSITIVE (< 50 ng/mL); Vista UDS pH Range 7
--- NOTE | 2018-11-05 14:56 | ED.VISSUMM ---
- ER Visit Summary Date of Service: 11/05/18 Chief Complaint: [Agitation, suicidal ideation] History of Present Illness: The patient is a 43 F [resents to the emergency department via EMS with police escort. [place] [address] yelling at construction workers and blocking traffic. Patient was placed in the back of a patrol car and she threatened to harm her self. Patient is a very poor historian and refuses to answer a lot of questions. Patient is very agitated. Patient is very labile and gets angry and takes an aggressive posture with no provocation. Patient yells that she just wants everybody to go home. To me she denied being suicidal and states just write down no for everything. Patient does smoke cigarettes. Patient does have a history of drug abuse including methamphetamines. She denies alcohol usage.] Physical Examination: [HEENT-PERRLA, EOMI. Cranial nerves II through XII grossly intact. TMs clear. Mucous membranes moist. No adenopathy. Cardiovascular-regular rate and rhythm without murmur or ectopy Lungs-clear to auscultation, chest wall stable without crepitus or subcu emphysema Abdomen-normoactive bowel sounds, soft, nontender, no rebound or rigidity, no peritoneal signs. Extremities-intact ?4, normal range of motion, normal pulses, atraumatic] Test Results: [CBC with differential obtained was normal. Chemistries unremarkable. hCG was negative. Alcohol was negative. Toxicology screen was positive for amphetamines and marijuana.] Emergency Department Course and Treatment: [Patient had to be chemically restrained given her presentation and the fact she was quite uncooperative. Patient would make threatening gestures toward staff and myself. She was medicated with Ativan 2 mg IM and Haldol 5 mg IM.] Treatment Plan: [Patient to be evaluated by crisis. Care of patient turned over to evening physician awaiting evaluation by crisis and final disposition] Disposition: [Pending] Impression: [Psychosis Suicidal ideation Illicit drug use] This note was generated with [employer] dictation software. It may contain incorrect words, spelling, and punctuation that were not noted in review of the chart prior to signing ED Disposition - Plan for ED Patient: Referrals: Care Physician,No Primary [Primary Care Provider] -
--- NOTE | 2018-11-05 17:34 | ED.RN ---
I TALKED TO ZIGGY FROM CRISIS AND SHE IS WORKING ON GETTING PATIENT TO [facility]
--- NOTE | 2018-11-05 17:36 | EKG12_ITS ---
Test Reason : [facility] [place] Blood Pressure : / mmHG Vent. Rate : 071 BPM Atrial Rate : 071 BPM P-R Int : 156 ms QRS Dur : 078 ms QT Int : 364 ms P-R-T Axes : 074 077 070 degrees QTc Int : 395 ms Normal sinus rhythm Septal infarct , age undetermined , cannot be excluded Abnormal ECG Confirmed by KG GUAMAN, KARLA ([id number]), associate entertainment editor RUSTY KNUTSON ([id number]) on 11/09/2018 6:24:33 AM Referred By: DEE Confirmed By:KARAL SAUL MD
[2018-11-05 17:46] LABS: Mucous, Urine 0 SEEN /hpf (<or=2+); Red Blood Cells-Urine 0 SEEN /hpf (0-5)
[2018-11-05 18:06] LABS: Color, Urine Yellow (Yellow); Glucose, Dipstick Normal (Normal); Ketone-Dipstick 5 mg/dl (Negative); Leukocyte Esterase-Dipstick 25 /ul (Negative); Nitrite-Dipstick Negative (Negative); Occult Blood-Urine Negative /ul (Negative); Protein-Dipstick 100 mg/dl (Negative); Urine Bilirubin Dipstick Negative (Negative); Urine Clarity Clear (Clear); Urine Urobilinogen Normal (Normal); Urine pH 6.5 (5.0 - 8.0)
[2018-11-05 18:18] LABS: AST(SGOT) 20 U/L (15-37); Alanine Aminotransfer ALT/SGPT 25 U/L (13-56); Albumin, Serum 3.7 g/dL (3.2-5.0); Alkaline Phosphatase 88 U/L (45-117); Bilirubin, Direct 0.12 mg/dL (0.00-0.30); Globulin 3.7 g/dL (2.2-4.2); Protein, Total 7.4 g/dL (6.4-8.2); Thyroid Stim Hormone (TSH) 0.91 uIU/mL (0.358-3.74)
[2018-11-05 18:28] LABS: Bacteria 1+ /hpf (None Seen); Hyaline Cast 0-5 SEEN /lpf (0-5); Squamous Epithelial Cells - UA 0-5 SEEN /hpf (5-10); White Blood Cells 0-5 SEEN /hpf (0-5)
--- NOTE | 2018-11-05 18:34 | ED.RN ---
FAXED ADDITIONAL REQUESTED RESULTS TO [facility]
--- NOTE | 2018-11-05 19:39 | ED.RN ---
ZIGGY FROM CRISIS CALLED TO REPORTS [facility] IS REVIEWING PT CHART. WILL CONTINUE TO MONITOR.
--- NOTE | 2018-11-05 22:24 | ED.RN ---
[facility] CALLED, THEY HAD A SQUAD OPEN UP EARLY AND THEY ARE INROUTE TO US NOW, [facility] AND RN ADVISED
== END 2018-11-05 22:37 ==
PROVIDERS: Emergency Medicine; Emergency Provider Emergency Medicine
DX: R45.851 Suicidal ideations (principal); F29 Unspecified psychosis not due to a substance or known physiological condition; F17.210 Nicotine dependence, cigarettes, uncomplicated; F15.90 Other stimulant use, unspecified, uncomplicated; F12.90 Cannabis use, unspecified, uncomplicated
CPT/HCPCS: 80048; 80076; 80307; 80320; 81001; 84443; 84703; 85025; 93005; 96372; 99285; P9612; G0480

== ENCOUNTER 2018-12-17 10:11 | Emergency (ER) | payer SELFPAY ==
[2018-11-05 12:26] VITALS: BMI 19.5
[2018-12-17] VITALS (12 sets, daily range): BP systolic 148–150; BP diastolic 82–85; PULSE 111–114; RESP 14–24; TEMP 36.6; O2SAT 97–100; BMI 18.8
--- NOTE | 2018-12-17 10:25 | ED.DCSUM_ITS ---
- ER Visit Summary Date of Service: 12/17/18 Chief Complaint: Agitation History of Present Illness: The patient is a 43 F who presents by EMS with lawn for cement and her significant other. The patient is agitated and having delusions about [place] Islander spies. She denies any suicidality. She does have a history of schizophrenia and is not taking her medications. No other medical complaints. Physical Examination: Afebrile. Tachycardic at 114 and tachypneic at 24. Patient is acutely agitated and noncompliant. She does not respond to verbal calming or changing the environment. She is screaming I do not want to see a doctor. Head and neck grossly atraumatic. Heart tachycardic but regular. Lungs clear. Skin appears normal. Test Results: Labs, tox, testing pending. Emergency Department Course and Treatment: Patient did not respond to interventions to calm her. She did require medication with Geodon 20 mg IM shortly after presentation. Will monitor. She had psychiatric precautions. We will check basic labs, tox, hCG. Patient will need hospitalization. Case management evaluation pending. On reevaluation, patient is calm and cooperative. She did not require any further medication or restraints. Work-up is unremarkable except for a tox screen positive for THC and amphetamines. Patient is medically cleared for transfer to a psychiatric care facility. Treatment Plan: As above Disposition: Transfer pending Impression: 1. Acute psychosis This note was generated with [employer] dictation software. It may contain incorrect words, spelling, and punctuation that were not noted in review of the chart prior to signing ED Disposition - Plan for ED Patient: Referrals: Care Physician,No Primary [Primary Care Provider] -
[2018-12-17] MEDS: Ziprasidone IM 20 MG/ML VIAL IM (10:30)
[2018-12-17 10:54] LABS: Absolute Lymphocyte Count 1.54 X10^3/ul (0.83-4.51); Absolute Neutrophil Count 4.2 X10^3/uL (2.0-7.7); Basophil# 0.02 X10^3/uL; Basophil% 0.3 % (0-1); Eosinophil# 0.08 X10^3/uL; Eosinophils% 1.2 % (0-5); Hematocrit 39.7 % (37-47); Hemoglobin 13.6 g/dl (12.0-15.0); Lymphocyte # 1.54 X10^3/ul (4.0); Lymphocyte % 23.8 % (19-41); Mean Corp Hgb Conc 34.3 g/gl (32-36); Mean Corpuscular Hgb 29.4 pg (27.0-32.0); Mean Corpuscular Volume 85.7 fL (81-99); Mean Platelet Vol. 9.6 fl (6.2-12.0); Monocyte% 9.3 % (0-10); Neutrophil # 4.21 X10^3/uL (2.7-7.7); Neutrophil % 65.2 % (47-70); Platelet Count 362 K/mm3 (150-450); RBC Distribution Width CV 13.2 % (11.6-14.6); RBC Distribution Width SD 40.7 fl (35.1-43.9); Red Blood Count 4.63 M/mm3 (4.2-5.4); White Blood Count 6.5 K/mm3 (4.4-11.0)
[2018-12-17 10:58] LABS: POSITIVE COUNT NO; POSITIVE DIFFERENTIAL NO; POSITIVE MORPHOLOGY NO
[2018-12-17 11:12] LABS: Internal QC Validated? YES +Cl - CLEAR BKGD; Pregnancy, Serum, hCG Quali. NEGATIVE Negative
[2018-12-17 11:13] LABS: Amphetamine Urine VISTA POSITIVE (<1000 ng/mL); Barbiturate Urine VISTA NEGATIVE (< 200 ng/mL); Benzodiazepine Urine VISTA NEGATIVE (< 200 ng/mL); Cocaine Urine VISTA NEGATIVE (< 300 ng/mL); Ecstacy Urine VISTA NEGATIVE (< 500 ng/mL); Methadone Urine VISTA NEGATIVE (< 300 ng/mL); PCP Urine VISTA NEGATIVE (< 25 ng/mL); THC Urine VISTA POSITIVE (< 50 ng/mL); Vista UDS pH Range 6
[2018-12-17 11:21] LABS: Anion Gap 15 (5-15); BUN 21 mg/dL (7-18); BUN/Creat Ratio 34.8 RATIO (10-20); Calcium,Total 8.7 mg/dL (8.5-10.1); Chloride 101 mmol/L (98-107); EST Glomerular Filtration Rate 114 mL/min (>60); Est Glom Filt Rate - Afr Amer 138 mL/min (>60); Estimated Creatinine Clearance 81.68 ml/min; Glucose 103 mg/dL (74-106); Potassium 4.2 mmol/L (3.5-5.1); Sodium Level 135 mmol/L (136-145)
--- NOTE | 2018-12-17 11:25 | NURSING ---
GAVE CHART TO STOCK RECEIVER
--- NOTE | 2018-12-17 11:30 | CM.ED ---
Social Work Assessment Referral Date: 12/17/18 Date of Assessment: 12/17/18 Informant: DR. STEPHENS, NURSING Reason for Consult: MENTAL HEALTH Information obtained from: MEDICAL CHART, PATIENT'S EX-: PATRICIA LUBIN [phone] Living Arrangements: PER EX-, PATIENT IS HOMELESS. PATIENT STAYS WITH FRIENDS AND WAS CURRENTLY STAYING WITH EX- AT HIS HOME. Employment/Financial: UNEMPLOYED, PATIENT ON MEDICAID- [facility] Supports: EX-, PATRICIA, EX-BOYFRIEND, [facility] Social/Family Stressors: PATIENT NON COMPLIANT WITH MEDICATIONS. PER EX- PATIENT HAS BEEN DELUSIONAL AND INCREASED IN PARANOIA. PATIENT BELIEVES THE WORLD IS ON A RESET, INDIAN SPIES ARE WATCHING AND FOLLOWING HER, BROTHER IS IN THE [place] TALKING TO HER, ALIENS ARE COMING. Mental Health History: PATIENT WITH HX OF SCHIZOPHRENIA. PATIENT HAS BEEN HOSPITALIZED PREVIOUSLY-[facility] IN [place] AND [facility] IN [place]OVEM[place]. PATIENT HAS DENIED SUICIDAL AND HOMICIDAL IDEATIONS. Substance Abuse History: EX- REPORTS PATIENT HAS TRIED ALL KINDS OF DRUGS IN THE PAST. ADMITS TO CURRENT USE OF MARIJUANA FOR PATIENT. TOX SCREEN POSITIVE FOR AMPHETAMINES AND CANNABINOIDS. Interventions: SOCIAL SERVICE CONSULT COLLABORATION WITH DR. STEPHENS AND PATIENT'S EX-, PATRICIA LUBIN Assessment: PATIENT IS A 43 Y/O FEMALE KNOWN TO THE EMERGENCY DEPT FROM PREVIOUS VISITS. PATIENT WITH HX OF SCHIZOPHRENIA. PATIENT PRESENTS TODAY BY SQUAD AND POLICE. PATIENT GIVEN GEODON. EX- WHO ARRIVES WITH PATIENT REPORTS PATIENT HAS BEEN STAYING WITH HIM OVER THE LAST FEW DAYS. EX- REPORTS SINCE MONDAY HAS NOTICED INCREASE IN PARANOID DELUSIONS. EX- STATES PATIENT HAS BEEN NON-COMPLIANT WITH MEDICATIONS. EX- REPORTS PATIENT DOES WELL AFTER PSYCH HOSPITALIZATIONS. EX- WORRIED ABOUT PATIENT'S BEHAVIORS. EMOTIONAL SUPPORT AND EDUCATION PROVIDED. THIS WORKER TO WORK ON INPATIENT PSYCH HOSPITALIZATION FOR PATIENT. PLAN: PATIENT REQUIRES INPATIENT HOSPITALIZATION. REFERRAL TO [facility].
--- NOTE | 2018-12-17 11:40 | CM.ED ---
SOCIAL WORK REFERRAL CALLED AND FAXED TO [facility]. AWAITING BED CONFIRMATION AND ACCEPTANCE. DYLAN ALVAREZ, ROOFER APPLICATOR, LINK TRAINER MAINTENANCE MAN.
--- NOTE | 2018-12-17 12:46 | CM.ED ---
SOCIAL WORK RECEIVED CALL FROM [facility] WITH [facility]. PATIENT'S CARESOURCE IS INACTIVE. VERIFIED WITH [facility] REGISTRATION. PATIENT IS SELF PAY. CALL TO [facility] TO UPDATE, SPOKE WITH ELLIOTT. CLINICAL INFORMATION FAXED TO ELLIOTT AT THIS TIME FOR REFERRAL TO [facility] D/T SELF-PAY STATUS. NURSING UPDATED. DYLAN ALVAREZ, MOTORIZED SQUAD COMMANDING OFFICER, EDUCATIONAL TECHNICIAN.
--- NOTE | 2018-12-17 12:59 | EKG12_ITS ---
Test Reason : [facility]ICAL [facility]ARANCE Blood Pressure : / mmHG Vent. Rate : 081 BPM Atrial Rate : 081 BPM P-R Int : 142 ms QRS Dur : 082 ms QT Int : 376 ms P-R-T Axes : 070 074 061 degrees QTc Int : 436 ms Normal sinus rhythm Septal infarct (cited on or before 05-NOV-2018) Abnormal ECG Confirmed by KG GUAMAN, KARLA ([id number]), movie editor TAMIKO WATSON ([id number]) on 12/20/2018 10:23:38 AM Referred By: ANGELO Confirmed By:KARLA SAUL MD
--- NOTE | 2018-12-17 13:07 | CM.ED ---
SOCIAL WORK [facility] WILL REQUIRE NEW EKG AND LIVER PANEL. DR. STEPHENS UPDATED. WILL FAX TO CRISIS ONCE RECEIVED. DYLAN ALVAREZ, BRICKLAYER TENDER, COMPOUND MACHINE OPERATOR.
[2018-12-17 13:18] LABS: AST(SGOT) 32 U/L (15-37); Alanine Aminotransfer ALT/SGPT 25 U/L (13-56); Albumin, Serum 3.8 g/dL (3.2-5.0); Alkaline Phosphatase 91 U/L (45-117); Bilirubin, Direct 0.09 mg/dL (0.00-0.30); Globulin 3.2 g/dL (2.2-4.2)
--- NOTE | 2018-12-17 13:20 | ED.RN ---
PT INFORMED OF PLAN OF CARE. SW ARRANGING PLACEMENT WITH [facility] AND [facility], PENDING ACCEPTANCE TO EITHER FACILITY. PT BECAME AGITATED AND STATED THAT SHE WAS REFUSING TO BE PLACED ANYWHERE. PT STATED I'M NOT CRAZY AND I'M NOT HEARING THINGS OR SEEING THINGS, EVERYONE IS LYING. PT INFORMED THAT SHE HAS BEEN PINK SLIPPED AND WILL BE REQUIRED TO BE TRANSFERRED TO A FACILITY NECESSARY. PT REQUESTED LUNCH TRAY, TRAY ORDERED PER REQUEST.
--- NOTE | 2018-12-17 13:40 | CM.ED ---
SOCIAL WORK RECEIVED CALL FROM ELLIOTT WITH CRISIS. PER ELLIOTT, MUST COMPLETE FACE TO FACE ASSESSMENT WITH PATIENT FOR PLACEMENT TO [facility] D/T SELF-PAY STATUS. ELLIOTT TO BE IN TO COMPLETE ASSESSMENT. DYLAN ALVAREZ, HOSPITAL MANAGER, ENGRAVER COPPERPLATE.
--- NOTE | 2018-12-17 13:42 | NURSING ---
ELLIOTT, CRISIS, ON HER WAY
--- NOTE | 2018-12-17 14:23 | NURSING ---
ELLIOTT, CRISIS, IN ROOM
--- NOTE | 2018-12-17 14:30 | CM.ED ---
SOCIAL WORK ELLIOTT FROM CRISIS HERE. PATIENT IS PINK SLIPPED AND REFERRAL MADE TO [facility]. DYLAN ALVAREZ, TELEVISION MECHANIC, PERIODONTAL ASSISTANT.
[2018-12-17] MEDS: LORazepam 2 MG/ML Syringe IM (14:32)
[2018-12-17] MEDS: DiphenhydrAMINE 50 MG/ML Syringe 25 MG IM (14:33)
[2018-12-17] MEDS: Haloperidol Lactate 5 MG/ML Vial IM (14:33)
--- NOTE | 2018-12-17 14:45 | CM.ED ---
SOCIAL WORK UPDATED BY ELLIOTT WITH CRISIS, [facility] DOES NOT HAVE A BED UNTIL TOMORROW. STAFF UPDATED. DYLAN ALVAREZ, BLUEPRINT PROCESSOR, ASSISTANT PROFESSOR OF SURGERY.
[2018-12-18] VITALS (12 sets, daily range): BP systolic 129–151; BP diastolic 62–85; PULSE 62–99; RESP 14–16; O2SAT 96–99
--- NOTE | 2018-12-18 09:11 | ED.RN ---
[facility]CTED [facility] TO GET A STATUS UPDATE ON PT. IVETTE STATED NO ONE IS AVAILABLE TO TAKE MY CALL AT THIS TIME BUT SHE WILL RELAY THE MESSAGE.
[2018-12-18] MEDS: Ziprasidone IM 20 MG/ML VIAL IM (14:00)
== END 2018-12-18 15:25 ==
PROVIDERS: Emergency Provider Emergency Medicine
DX: F23 Brief psychotic disorder (principal)
CPT/HCPCS: 80048; 80076; 80307; 80320; 84703; 85025; 93005; 96372; 99285; G0480; J3486

== ENCOUNTER 2019-02-08 14:50 | Emergency (ER) | payer MEDICAID, SELFPAY ==
[2018-12-17 10:17] VITALS: BMI 18.8
[2019-02-08] VITALS (9 sets, daily range): BP systolic 83–156; BP diastolic 59–116; PULSE 68–144; RESP 12–20; TEMP 37.2; O2SAT 95–99; BMI 18.3
--- NOTE | 2019-02-08 14:55 | CM.ED ---
SOCIAL WORK REVIEWED CHART. PATIENT TO BE EVALUATED BY CRISIS ONCE MEDICALLY CLEARED. DYLAN ALVAREZ, FRAME EXPANDER, SPEEDER MACHINE OPERATOR.
--- NOTE | 2019-02-08 14:56 | EKG12_ITS ---
Test Reason : [facility] Blood Pressure : / mmHG Vent. Rate : 097 BPM Atrial Rate : 097 BPM P-R Int : 148 ms QRS Dur : 068 ms QT Int : 332 ms P-R-T Axes : 076 072 063 degrees QTc Int : 421 ms Normal sinus rhythm Normal ECG Confirmed by MANFRED ROBERTS ([id number]), loan expeditor TAMIKO WATSON ([id number]) on 02/11/2019 2:23:14 PM Referred By: WHITNEY Confirmed By:MANFRED ROBERTS
--- NOTE | 2019-02-08 14:59 | ED.DCSUM_ITS ---
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 Patient has a history of underlying mental health disease and drug abuse. She has been admitted multiple times to psychiatric hospitals due to acute psychosis. She would do very well when she is compliant with her medications, but when she comes off of her antipsychotics, she becomes delusional and begins to have hallucinations. Police were called today because of her psychotic behavior. She was saying that there was planes in the mery that were watching her. She is focusing that there are people out to get her. She has tangential thoughts and pressured speech. Prior similar symptoms: Yes Recent Illness/Hospitalization: Yes Past Medical History - Allergies and Home Meds Allergies/Adverse Reactions: Allergies No Known Allergies Allergy (Verified 11/05/18 12:57) Primary Care Physician: Care Physician,No Primary [Primary Care Provider] - Prior records reviewed: Yes Past Medical History: - Smoking Status: Current every day smoker Review of Systems ROS: Unable to Obtain Physical Exam Inital Vital Signs reviewed: Yes General: Unkempt Head: Normocephalic, Atraumatic Eyes: Perrl, EOMI ENT: Moist mucous membranes, No rhinorrhea Neck: Supple, Nontender Cardiovascular: Regular rhythm, No murmurs, Tachycardia Respiratory: No distress, CTA bilaterally, Chest nontender Abdomen: Soft, Nontender, Nondistended, Normal bowel sounds Back: Nontender, Normal Inspection Extremities: Nontender, No edema Skin: Normal color, No rash Neurological: Cranial nerves II-XII grossly intact, Normal Strength, Normal Sensation, Hyperalert Psychological: Agitated Diagnostic/Tx/Re-eval Abnormal Lab Results 02/08/19 02/08/19 02/08/19 16:02 16:02 16:02 WBC 9.2 RBC 4.28 Hgb 12.8 Hct 38.2 MCV 89.3 MCH 29.9 MCHC 33.5 RDW Std Deviation 40.5 RDW Coeff of Fabio 12.4 Plt Count 323 MPV 9.5 Immature Gran % (Auto) 0.300 Neut % (Auto) 73.5 H Lymph % (Auto) 20.9 [place] % (Auto) 4.7 Eos % (Auto) 0.4 Baso % (Auto) 0.2 Absolute Neuts (auto) 6.7 Absolute Lymphs (auto) 1.91 Sodium Potassium Chloride Carbon Dioxide Anion Gap BUN Creatinine Estim Creat Clear Calc Est GFR (MDRD) Af Amer Est GFR (MDRD) Non-Af BUN/Creatinine Ratio Glucose Calcium Total Bilirubin AST ALT Alkaline Phosphatase Total Protein Albumin Globulin Albumin/Globulin Ratio Serum , Qual NEGATIVE Urine Opiates Screen Urine Methadone Screen Ur Barbiturates Screen Ur Phencyclidine Scrn Ur Amphetamines Screen U Methamphetamin-MDMA U Benzodiazepines Scrn Urine Cocaine Screen U Cannabinoids Screen Ur Drug Screen Comment Ethyl Alcohol < 3.0 02/08/19 02/08/19 16:02 16:25 WBC RBC Hgb Hct MCV MCH MCHC RDW Std Deviation RDW Coeff of Fabio Plt Count MPV Immature Gran % (Auto) Neut % (Auto) Lymph % (Auto) [place] % (Auto) Eos % (Auto) Baso % (Auto) Absolute Neuts (auto) Absolute Lymphs (auto) Sodium 144 Potassium 3.1 L Chloride 110 H Carbon Dioxide 25.0 Anion Gap 9 BUN 17 Creatinine 0.89 Estim Creat Clear Calc 59.35 Est GFR (MDRD) Af Amer 88 Est GFR (MDRD) Non-Af 73 BUN/Creatinine Ratio 19.2 Glucose 175 H Calcium 8.7 Total Bilirubin 0.30 AST 21 ALT 27 Alkaline Phosphatase 85 Total Protein 7.0 Albumin 3.5 Globulin 3.5 Albumin/Globulin Ratio 1.0 Serum , Qual Urine Opiates Screen NEGATIVE Urine Methadone Screen NEGATIVE Ur Barbiturates Screen NEGATIVE Ur Phencyclidine Scrn NEGATIVE Ur Amphetamines Screen POSITIVE H U Methamphetamin-MDMA NEGATIVE U Benzodiazepines Scrn NEGATIVE Urine Cocaine Screen NEGATIVE U Cannabinoids Screen POSITIVE H Ur Drug Screen Comment Ethyl Alcohol - Rhythm Strip Rhythm Strip: Sinus Rhythm Rate: 90 Ectopy: None - EKG Initial EKG Interpretation: Sinus Rhythm, No Acute Injury Pattern Prior: Unchanged - Medical Decision Making On arrival, the patient did have to be placed in restraints due to her aggressive and violent behavior. She was unable to be redirected verbally. She was acutely psychotic and did not have capacity. The patient was medicated with Geodon, Ativan, and Benadryl. Psychiatric work-up was pursued. After medication, the patient was much more calm. Metabolic screening exam was unremarkable. Her tox was positive for amphetamines. The patient will be evaluated by psychiatry. At this point, she is medically cleared for psychiatric admission given her acute psychosis and decompensation of bipolar disorder. Impression 1. Acute psychosis ED Disposition - Plan for ED Patient: Referrals: Care Physician,No Primary [Primary Care Provider] -
--- NOTE | 2019-02-08 15:41 | ED.RN ---
pt is observed asleep, emotional support provided. Pt agrees to be cooperative. Restraints to remove. Pt resting with eyes closed.
[2019-02-08 16:31] LABS: Hematocrit 38.2 % (37-47); Hemoglobin 12.8 g/dL (12.0-15.0); Mean Corp Hgb Conc 33.5 g/dL (32-36); Mean Corpuscular Hgb 29.9 pg (27.0-32.0); Mean Corpuscular Volume 89.3 fL (81-99); Mean Platelet Vol. 9.5 fl (6.2-12.0); POSITIVE COUNT NO; POSITIVE DIFFERENTIAL NO; POSITIVE MORPHOLOGY NO; Platelet Count 323 K/mm3 (150-450); RBC Distribution Width CV 12.4 % (11.6-14.6); RBC Distribution Width SD 40.5 fl (35.1-43.9); Red Blood Count 4.28 M/mm3 (4.2-5.4); White Blood Count 9.2 K/mm3 (4.4-11.0)
[2019-02-08 16:32] LABS: Absolute Lymphocyte Count 1.91 X10^3/uL (0.83-4.51); Absolute Neutrophil Count 6.7 X10^3/uL (2.0-7.7); Basophil% 0.2 % (0-1); Eosinophil# 0.04 X10^3/uL; Eosinophils% 0.4 % (0-5); Lymphocyte # 1.91 X10^3/ul (4.0); Lymphocyte % 20.9 % (19-41); Monocyte# 0.43 X10^3/uL; Monocyte% 4.7 % (0-10); Neutrophil # 6.72 X10^3/uL (2.7-7.7); Neutrophil % 73.5 % (47-70)
[2019-02-08 16:33] LABS: Basophil# 0.02 X10^3/uL
[2019-02-08] MEDS: LORazepam 2 MG/ML Syringe IM (16:39)
[2019-02-08] MEDS: Ziprasidone IM 20 MG/ML VIAL IM (16:42)
[2019-02-08] MEDS: DiphenhydrAMINE 50 MG/ML Syringe 25 MG IM (16:42)
--- NOTE | 2019-02-08 16:43 | ED.RN ---
1445-pt arrives via S.O. ambulatory and in cuffs. She is screaming vulgarities and getting in the face of the nurse in a threatening manner. She took redirection with much encouragement for short periods only. She did cooperate and remain on bed for a few minutes but was quickly up and moving around the room when the cuffs were removed. Once again redirected to remain in bed for the assessment the pt continued screaming vulgarities at her top voice. She did not continue to follow instructions or answer questions. She bolted from the bed in manic pressured move threatening we were not going to DO ANY FUCKING THING TO HER! NO BLOOD! NO MEDS! The pt was restrained to bed while treatment was explained. She did not verbalize understanding to this instead she responded with SUCK MY PEDRO MOTHER FUCKER!. The pt calmed briefly and was given water per her request. She was medicated without issue.
[2019-02-08 16:44] LABS: Internal QC Validated? YES +Cl - CLEAR BKGD; Pregnancy, Serum, hCG Quali. NEGATIVE Negative
[2019-02-08 16:53] LABS: AST(SGOT) 21 U/L (15-37); Alanine Aminotransfer ALT/SGPT 27 U/L (13-56); Albumin, Serum 3.5 g/dL (3.2-5.0); Alkaline Phosphatase 85 U/L (45-117); Anion Gap 9 (5-15); BUN 17 mg/dL (7-18); BUN/Creat Ratio 19.2 RATIO (10-20); Calcium,Total 8.7 mg/dL (8.5-10.1); Chloride 110 mmol/L (98-107); Creatinine, Serum 0.89 mg/dL (0.55-1.02); EST Glomerular Filtration Rate 73 mL/min (>60); Est Glom Filt Rate - Afr Amer 88 mL/min (>60); Estimated Creatinine Clearance 59.35 ml/min; Globulin 3.5 g/dL (2.2-4.2); Glucose 175 mg/dL (74-106); Potassium 3.1 mmol/L (3.5-5.1); Sodium Level 144 mmol/L (136-145)
[2019-02-08 17:02] LABS: Amphetamine Urine VISTA POSITIVE (<1000 ng/mL); Barbiturate Urine VISTA NEGATIVE (< 200 ng/mL); Benzodiazepine Urine VISTA NEGATIVE (< 200 ng/mL); Cocaine Urine VISTA NEGATIVE (< 300 ng/mL); Ecstacy Urine VISTA NEGATIVE (< 500 ng/mL); Methadone Urine VISTA NEGATIVE (< 300 ng/mL); PCP Urine VISTA NEGATIVE (< 25 ng/mL); THC Urine VISTA POSITIVE (< 50 ng/mL); Vista UDS pH Range 6
[2019-02-08 17:11] LABS: Alcohol, Blood (Medical)-Serum < 3.0 mg/dL
--- NOTE | 2019-02-08 17:15 | CM.ED ---
SOCIAL WORK CALL TO CRISIS, SPOKE WITH CARLY. UPDATED ON PATIENT'S NEED FOR EVAL. DYLAN ALVAREZ, MANAGER UNDERWRITING, DIRECTOR COMMUNITY CENTER.
--- NOTE | 2019-02-08 18:30 | CM.ED ---
SOCIAL WORK INA FROM CRISIS HERE TO ASSESS PATIENT. DYLAN ALVAREZ, LIGHT CLEANER, FITTER TACKER
--- NOTE | 2019-02-08 21:50 | CM.ED ---
SOCIAL WORK PER CRISIS, REFERRAL HAS BEEN SENT TO [facility]. DYLAN ALVAREZ, COUNCILLOR ABORIGINAL [place], ALINING INSPECTOR.
[2019-02-09] VITALS (17 sets, daily range): BP systolic 88–135; BP diastolic 58–90; PULSE 65–93; RESP 13–19; O2SAT 94–100
[2019-02-09] MEDS: Ziprasidone IM 20 MG/ML VIAL IM ×2 (05:48→16:59)
--- NOTE | 2019-02-09 05:48 | ED.RN ---
PT STATES GET ME A FUCKING CIGARETTE AND THE FUCKING POLICE. I AM GETTING MY CLOTHES AND GETTING THE FUCK OUT OF HERE. PT ASKED TO SIT BACK IN BED TO WHICH SHE REPLIED TURN AROUND AND GET THE FUCK OUT OF MY ROOM YOU BITCHES. I WILL GET YOU ALL IF YOU SEND ME TO A PSYCH [place]. PT INFORMED SHE WILL BE ADMITTED TO A PSYCH FACILITY. PT BECAME COMBATIVE TOWARDS STAFF AND SCREAMING UNCONTROLLABLY. EMOTIONAL SUPPORT WAS INEFFECTIVE. PT WAS RESTRAINED WITH LOCKED RESTRAINTS AND MEDICATED PER MD ORDERS
[2019-02-09] MEDS: LORazepam 2 MG/ML Syringe 1 MG IM ×2 (07:49→07:50)
--- NOTE | 2019-02-09 08:25 | ED.RN ---
REMOVED LEFT ARM FROM RESTRAINTS IN AN ATTEMPT TO GET COOPERATION FROM PT. PT CONTINUES TO YELL AND CUSS. PT REFUSED BREAKFAST AT THIS TIME. ADJUSTED RIGHT ARM TO A LOWER POSITION FOR COMFORT AND COMPLETED ROM.
--- NOTE | 2019-02-09 09:01 | ED.RN ---
REMOVED RIGHT LEG RESTRAINT AND PT STATES SHE WILL REMAIN CALM AND FOLLOW DIRECTIONS. PT DID ESCALATE PRIOR TO REMOVING IT BUT QUICKLY TRIED TO CALM DOWN.
--- NOTE | 2019-02-09 10:03 | ED.RN ---
Addendum entered by Kathy Mcguire 02/09/19 10:05: RESTRAINTS WERE REMOVED AT 0930. PT WAS GIVEN WARM BLANKET. PT REFUSED FOOD WATER AND BATHROOM. Original Note: RESTRAINTS REMOVED AND PT GIVEN A WARM BLANKET. PT REFUSED FOOD, WATER OR BATHROOM.
[2019-02-09] MEDS: Haloperidol Lactate 5 MG/ML Vial IM (14:13)
[2019-02-09] MEDS: DiphenhydrAMINE 50 MG/ML Syringe 25 MG IM (14:13)
[2019-02-09] MEDS: LORazepam 2 MG/ML Syringe IM ×2 (14:13→15:10)
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
--- NOTE | 2019-02-09 17:09 | ED.RN ---
PT LEFT ARM RESTRAINT AND ARM MOVED DOWN TO THE SIDE OF THE BED. PT RIGHT ARM RESTRAINT AND ARM MOVED OVER THE PT HEAD.
--- NOTE | 2019-02-09 20:24 | ED.RN ---
ALL RESTRAINTS HAVE BEEN REMOVED. PT IS RESTING WITH NO DISTRESS NOTED.
[2019-02-10] VITALS (14 sets, daily range): BP systolic 93–130; BP diastolic 62–98; PULSE 53–99; RESP 12–20; O2SAT 97–100
[2019-02-10] MEDS: Ziprasidone IM 20 MG/ML VIAL IM ×2 (07:37→13:10)
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
--- NOTE | 2019-02-10 08:15 | ED.RN ---
0813 PT RESTING WITH EYES CLOSED. RESTRAINTS REMOVED.
--- NOTE | 2019-02-10 08:48 | ED.RN ---
prior to restraints and geodon, pt refused nicotine patch.
--- NOTE | 2019-02-10 10:06 | ED.RN ---
SATISH CALLED F [facility] AND THERE ARE NO AVAILABLE BEDS ANYWHERE FOR THE PATIENT. THEY WILL CONTINUE TO TRY TO FIND HER A BED.
--- NOTE | 2019-02-10 10:22 | ED.RN ---
RESTRAINTS REAPPLY, PT AGGRESSIVE AND VIOLENT TOWARD STAFF. PT VERBALLY AND PHYSICALLY AGGRESSIVE TOWARD STAFF.
[2019-02-10] MEDS: LORazepam 2 MG/ML Syringe IM (11:30)
--- NOTE | 2019-02-10 18:34 | ED.RN ---
PT FINISHED EATING AND AGREED TO COOPERATE, ALL RESTRAINTS REMOVED, PT WAS INFORMED IF SHE ACTS OUT, HAS THREATENING BEHAVIOR TOWARDS STAFF, RESTRAINTS WILL BE REAPPLIED. PT AGREED TO COOPERATE.
[2019-02-11] VITALS (16 sets, daily range): BP systolic 97–138; BP diastolic 71–99; PULSE 60–97; RESP 10–19; O2SAT 98–100
[2019-02-11] MEDS: Ziprasidone IM 20 MG/ML VIAL IM ×2 (06:30→17:19)
--- NOTE | 2019-02-11 06:35 | ED.RN ---
THE PT STARTED YELLING FROM THE ROOM. THIS NURSE WALKED INTO THE ROOM TO SPEAK WITH THE PT. PT STATES WHY AM I HERE?. THIS NURSE ATTEMPTED TO EXPLAIN TO THE PT WHY SHE WAS BROUGHT TO THE ER AND WHEN SHE WAS BROUGHT TO THE ER. THE PT GOT OUT OF THE BED YELLING AND WALKING TOWARDS THIS NURSE AND THE DOOR. THE PT STATES YOU FUCKING LIAR. YOU FUCKING BITCH. YOU ARE LYING. I NEVER DID THAT. I'M LEAVING. WHY DID YOU LET ME WALK DOWN THE STREET YESTERDAY IF I'M SO BAD. YOU FUCKER. THIS NURSE ATTEMPT TO EXPLAIN TO THE PT SHE IS NOT ABLE TO LEAVE. THE PT CONTINUED TO YELL AT THIS NURSE AND WALK TOWARD THIS NURSE MOVING HER ARMS WITH FISTS CLENCHED. THIS NURSE ASKED THE PLUMBER MAINTENANCE TO CONTACT THE POLICE DEPARTMENT TO SEND OFFICERS TO ASSIST THE STAFF. DAVID TUCKER SPOKE WITH DR DEL CID ABOUT THE EVENTS. ORDER FOR GEODON AND 4 POINT LOCKED RESTRAINTS OBTAINED. THIS NURSE WAS ABLE TO CONVINCE THE PT TO GET BACK IN THE BED. THE PT STOOD ON THE BED STOMPING HER FEET AND YELLING AT THIS NURSE. PT STATES GET AWAY FROM ME YOU BITCH. I WILL FUCKING HURT YOU. PT CONVINCED TO SIT ON THE BED. WHEN [employer] OFFICER ARRIVED, PT WAS GIVEN GEODON IN THE LEFT ARM AND PLACED BACK IN 4 POINT LOCKED RESTRAINTS. NO STAFF MEMBERS WERE INJURED DURING THIS ENCOUNTER. THE PT WAS NOT INJURED DURING THIS ENCOUNTER
--- NOTE | 2019-02-11 08:23 | ED.RN ---
PT IN ROOM CRYING. WENT IN TO ASSESS PT. PT STATES I WANT FUCKING OUT OF HERE. ASKED PT WHAT MEDS SHE TAKES ZOLOFT AND ABILIFY BUT I AIN'T FUCKING TAKING THEM. MADE AWARE.
[2019-02-11] MEDS: LORazepam 2 MG/ML Syringe IV (08:31)
--- NOTE | 2019-02-11 11:31 | ED.RN ---
TOOK PATIENT IN MEAL TRAY, ASSISTED PT WITH MEAL, PT ATE 100% OF FOOD PROVIDED. PT STATES GET THESE FUCKING THINGS OFF OF ME SO I CAN GET OUT OF HERE. ADVISED PT THAT RESTRAINTS COULD NOT BE REMOVED BECAUSE SHE WAS THREATENING TO LEAVE.
--- NOTE | 2019-02-11 12:14 | ED.RN ---
lactic resulted by lab 4.8, physician notified
--- NOTE | 2019-02-11 12:37 | ED.RN ---
I TALKED TO KISHOR AT [facility] AND THEY ARE STILL TRYING TO PLACE THE PATIENT. THE PATIENT HAS MEDICAID SO IT IS HARDER TO FIND A HOSPITAL. SHE WILL GO TO [facility] BUT THEY DO NOT HAVE A BED AT THIS TIME. KISHOR IS SENDING SOMEONE OVER TO FILL OUT A NEW PINK SLIP AND TALK TO THE PATIENT.
[2019-02-11] MEDS: LORazepam 1 MG Tablet PO ×2 (15:13→22:34)
--- NOTE | 2019-02-11 15:15 | ED.RN ---
PT TEARFUL, PO ATIVAN GIVEN PER AL REQUEST. DIFFICULT TO REASSURE, 1:1 EMOTIONAL SUPPORT GIVEN.
--- NOTE | 2019-02-11 15:26 | ED.RN ---
[facility] CALLED SEVERAL TIMES FOR PT BY DIRECTOR NEWS.
--- NOTE | 2019-02-11 19:29 | ED.RN ---
PER CRISIS, [facility] HAS ACCEPTED THIS PT, HOWEVER, THEY STILL DON'T HAVE AN OPEN BED.
[2019-02-11] MEDS: Sertraline 100 MG Tablet PO (19:33)
--- NOTE | 2019-02-11 22:38 | ED.RN ---
PT AWOKE, REQUESTED ATIVAN, STATES I'M GETTING ANXIOUS AGAIN. MEDS GIVEN PER MD ORDER. PT RETURNED TO BED, RESTING QUIETLY IN BED WITH EYES CLOSED.
[2019-02-12] VITALS (12 sets, daily range): BP systolic 90–116; BP diastolic 52–96; PULSE 61–83; RESP 12–16; O2SAT 97–99
[2019-02-12] MEDS: LORazepam 1 MG Tablet 2 MG PO (08:16)
--- NOTE | 2019-02-12 08:41 | ED.RN ---
PT REQUESTS THAT FATHER BE CALLED TO SEE IF HE WOULD COME SIT WITH HER. ATTEMPT MADE TO CALL FATHER, NO ANSWER.
[2019-02-12] MEDS: Sertraline 100 MG Tablet PO (09:13)
--- NOTE | 2019-02-12 09:15 | ED.RN ---
NURSING SUPERVISOR LABORATORY SPOKE WITH THE [facility] FOR AN UPDATE. PER [facility], THE PATIENT WOULD HAVE A BED AVAILABLE ON MONDAY (02/14). QUINTON WILL BE HERE TO REASSESS PATIENT, PT AWARE.
--- NOTE | 2019-02-12 09:33 | NURSING ---
CRISIS IN ROOM
[2019-02-12] MEDS: Ziprasidone IM 20 MG/ML VIAL IM (10:00)
--- NOTE | 2019-02-12 10:15 | ED.RN ---
[facility] CALLS STATING THAT WHEN THEY RECEIVED PATIENT'S LAB RESULTS, HER POTASSIUM WAS BORDERLINE AND NEEDS SUPPLEMENTATION BEFORE THEY WILL ACCEPT HER. PREVIOUS DOCUMENTATION VIEWED THAT PATIENT REFUSED POTASSIUM. [facility] REQUESTS THAT AN ADDITIONAL POTASSIUM LEVEL BE DRAWN. DR. STEPHENS MADE AWARE. ORDER PLACED.
--- NOTE | 2019-02-12 10:45 | ED.RN ---
[facility] CALLS STATING THAT THEY ARE ANTICIPATING A DISCHARGE AROUND 1300 THIS AFTERNOON AND THEY WOULD CALL US AROUND THEN TO LET US KNOW IF PATIENT CAN HAVE BED.
[2019-02-12 11:11] LABS: Potassium 3.9 mmol/L (3.5-5.1)
--- NOTE | 2019-02-12 14:10 | NURSING ---
CALLED DYLAN, ETA IS [phone] CALLED GABINO LAZARO, COMING FROM [place]
== END 2019-02-12 15:01 ==
PROVIDERS: Emergency Medicine; Emergency Provider Emergency Medicine
DX: F23 Brief psychotic disorder (principal); F17.200 Nicotine dependence, unspecified, uncomplicated
CPT/HCPCS: 36415; 80053; 80307; 80320; 84132; 84703; 85025; 93005; 96372; 96374; 99284; A4216; G0480; J3486

== ENCOUNTER → 2019-03-27 | Outpatient (CLI) | payer MEDICAID, SELFPAY ==
[2019-02-08 14:52] VITALS: BMI 18.3
[2019-03-27 16:07] LABS: AST(SGOT) 15 U/L (15-37); Alanine Aminotransfer ALT/SGPT 21 U/L (13-56); Albumin, Serum 4.2 g/dL (3.2-5.0); Alkaline Phosphatase 101 U/L (45-117); Bilirubin, Direct 0.14 mg/dL (0.00-0.30); Globulin 3.9 g/dL (2.2-4.2); Protein, Total 8.1 g/dL (6.4-8.2)
[2019-03-28 10:19] LABS: Hepatitis B Surface Antigen Non-Reactive (Nonreactive); Hepatitis C Antibody Non-Reactive (Nonreactive)
== END | disposition home or self-care (01) ==
DX: R63.0 Anorexia (principal); R53.81 Other malaise; R11.0 Nausea
CPT/HCPCS: 36415; 80076; 86803; 87340

== ENCOUNTER 2019-10-05 22:56 | Emergency (ER) | payer MEDICAID, SELFPAY ==
[2019-02-08 14:52] VITALS: BMI 18.3
[2019-10-05 22:57] VITALS: BP 136/85; PULSE 101; RESP 18; TEMP 35.5; O2SAT 99; BMI 19.5
[2019-10-05 23:00] VITALS: RESP 16
[2019-10-06] VITALS (7 sets, daily range): BP systolic 99; BP diastolic 72; PULSE 86; RESP 16; O2SAT 100
[2019-10-06 01:23] LABS: Absolute Neutrophil Count 6.4 X10^3/uL (2.0-7.7); Basophil# 0.05 X10^3/uL; Basophil% 0.5 % (0-1); Eosinophil# 0.18 X10^3/uL; Eosinophils% 1.7 % (0-5); Hematocrit 41.4 % (37-47); Hemoglobin 13.6 g/dL (12.0-15.0); Lymphocyte % 24.4 % (19-41); Mean Corp Hgb Conc 32.9 g/dL (32-36); Mean Corpuscular Hgb 29.3 pg (27.0-32.0); Mean Corpuscular Volume 89.2 fL (81-99); Mean Platelet Vol. 8.9 fl (6.2-12.0); Monocyte# 1.31 X10^3/uL; Monocyte% 12.3 % (0-10); NRBC Flagged by Analyzer 0 % (0-5); Neutrophil # 6.39 X10^3/uL (2.7-7.7); Platelet Count 374 K/mm3 (150-450); RBC Distribution Width SD 41.7 fl (35.1-43.9); Red Blood Count 4.64 M/mm3 (4.2-5.4); White Blood Count 10.7 K/mm3 (4.4-11.0)
[2019-10-06 01:37] LABS: Anion Gap 6 (5-15); BUN 10 mg/dL (7-18); BUN/Creat Ratio 16.1 RATIO (10-20); Calcium,Total 9.5 mg/dL (8.5-10.1); Chloride 107 mmol/L (98-107); Creatinine, Serum 0.62 mg/dL (0.55-1.02); EST Glomerular Filtration Rate 110 mL/min (>60); Est Glom Filt Rate - Afr Amer 133 mL/min (>60); Estimated Creatinine Clearance 81.19 ml/min; Glucose 99 mg/dL (74-106); Potassium 4.3 mmol/L (3.5-5.1); Sodium Level 139 mmol/L (136-145)
[2019-10-06 02:42] LABS: Mucous, Urine 0 SEEN /hpf (<or=2+)
[2019-10-06 02:51] LABS: Color, Urine Yellow (Yellow); Glucose, Dipstick Normal (Normal); Ketone-Dipstick 15 mg/dl (Negative); Leukocyte Esterase-Dipstick 500 /ul (Negative); Nitrite-Dipstick Positive (Negative); Occult Blood-Urine 10 /ul (Negative); Protein-Dipstick 30 mg/dl (Negative); Urine Clarity Sl. Cloudy (Clear); Urine Urobilinogen Normal (Normal)
[2019-10-06 02:54] LABS: Urine Bilirubin Dipstick 1 mg/dL (Negative)
[2019-10-06 03:02] LABS: Amphetamine Urine VISTA POSITIVE (<1000 ng/mL); Barbiturate Urine VISTA NEGATIVE (< 200 ng/mL); Benzodiazepine Urine VISTA NEGATIVE (< 200 ng/mL); Cocaine Urine VISTA NEGATIVE (< 300 ng/mL); Ecstacy Urine VISTA POSITIVE (< 500 ng/mL); Methadone Urine VISTA NEGATIVE (< 300 ng/mL); PCP Urine VISTA NEGATIVE (< 25 ng/mL); THC Urine VISTA POSITIVE (< 50 ng/mL); Vista UDS pH Range 6
[2019-10-06 03:02] LABS: Alcohol, Blood (Medical)-Serum < 3.0 mg/dL
[2019-10-06 03:08] LABS: Bacteria 3+ /hpf (None Seen); Red Blood Cells-Urine 10-25 SEEN /hpf (0-5); Squamous Epithelial Cells - UA 10-25 SEEN /hpf (5-10); White Blood Cells 25-50 SEEN /hpf (0-5)
--- NOTE | 2019-10-06 03:34 | NURSING ---
CALLED CRISIS AT [phone]
--- NOTE | 2019-10-06 03:36 | ED.VISSUMM ---
- ER Visit Summary Date of Service: 10/06/19 Chief Complaint: Abnormal behavior History of Present Illness: The patient is a 44 F who presents with abnormal behavior. Patient was brought in by [facility] department. [facility] reports that the patient stopped taking her medications 3 weeks ago and was having delusions. Patient denies any complaints at the present time. Patient states she feels fine. Patient states she just wants to get checked out and go home. Patient denies any suicidal or homicidal ideations. Physical Examination: Vital signs are stable. Patient is afebrile. Patient is in no acute distress. Oral mucosa is pink and moist. Neck is supple. Trachea is midline. There is no JVD noted. Heart was regular rate and rhythm. Lungs are clear and equal bilaterally. Abdomen is soft. Bowel sounds are normal. There is no tenderness. There is no rebound or guarding noted. Skin is warm dry. Cranial nerves II through XII are intact. There are no focal motor or sensory deficits noted. Extremities are intact. There is no calf tenderness or edema. Test Results: CBC and basic metabolic profile were within normal limits. Urinalysis showed leukocyte esterase of 500 with positive nitrates. There were 25-50 white blood cells and 3+ bacteria. There were also 10-25 red blood cells and 10-25 epithelial cells. Urine tox urine was positive for amphetamines, MDMA, and cannabinoids. Serum alcohol level was normal. Emergency Department Course and Treatment: Patient was observed here in the emergency department. Case was discussed with crisis evaluation. They will evaluate the patient. Crisis counselor knows the patient well. She feels that the patient is safe to be discharged home. Patient will follow-up with crisis this week. Patient was given a dose of Bactrim here. Patient was given a prescription for Bactrim. Patient was instructed to follow-up this week. Patient understood and was agreeable with the plan. All questions were answered. Disposition: Discharge home Impression: 1. Urinary tract infection This note was generated with It[employer]beforeI[employer] dictation software. It may contain incorrect words, spelling, and punctuation that were not noted in review of the chart prior to signing ED Disposition - Plan for ED Patient: Disposition: Home or Assisted Living Diagnosis: Urinary tract infection Instructions: ED CYSTITIS Female Adult Prescriptions: Smz/Tmp Ds [Bactrim Ds] 1 tab PO BID #6 tab Prescription Printed Referrals: Care Physician,No Primary [Primary Care Provider] - 5-7 Days Counseling,Center [GROUP OF PHYSICIANS] - 3-5 Days
[2019-10-06] MEDS: Smz/Tmp Ds Tablet 1 TABLET PO (04:53)
--- NOTE | 2019-10-06 08:10 | ED.RN ---
THIS NURSE CONTACTED PT FATHER TO PICK HER UP PER THE PT REQUEST. FATHER ASKING QUESTIONS ABOUT WHY THE PT IS IN THE ER. PORTABLE PHONE GIVEN TO PT TO SPEAK WITH HER FATHER. PT YELLING AND SCREAMING. PT STATES I HATE THIS [facility]. THESE [facility] ARE ALL STUPID. JUST COME FUCDES LACS GET ME
--- NOTE | 2019-10-06 08:45 | ED.RN ---
PT VISIBLY UPSET AND YELLING PROFANITIES. ATTEMPTED TO ASSIST IN FINDING A RIDE HOME. WAS ABLE TO CONTACT FATHER WHO AGREED TO PILE DRIVER OPERATOR HELPER PT. PT LEAVES ED CONTINUING TO YELL PROFANITIES.
== END 2019-10-06 08:47 | disposition home or self-care (01) ==
PROVIDERS: Emergency Provider Emergency Medicine
DX: N39.0 Urinary tract infection, site not specified (principal); R46.89 Other symptoms and signs involving appearance and behavior; Z72.0 Tobacco use
CPT/HCPCS: 80048; 80307; 80320; 81001; 85025; 99283; G0480

== ENCOUNTER 2019-10-11 07:21 | Emergency (ER) | payer MEDICAID, SELFPAY ==
[2019-10-11 07:22] VITALS: BP 219/188; PULSE 72; RESP 24; TEMP 36.3; O2SAT 98; BMI 18.4
--- NOTE | 2019-10-11 07:30 | ED.RN ---
PT INFORMED THAT SHE NEEDS TO REMOVE HER CLOTHING AND GET INTO A PT GOWN. PT STATES I'M NOT FUCKING PUTTING A GOWN ON. STAFF INFORMED PT AGAIN SHE NEEDS TO PUT A GOWN ON. PT STATES THIS IS BULLSHIT. I FUCKING HATE THIS PLACE. PT WALKED OVER TO THE DOORWAY. PT THREW HER KEYS ACROSS THE ROOM. PT REMOVED HER CLOTHING IN THE DOORWAY. THREW HER CLOTHES ACROSS THE ROOM AND JUMPED ON THE BED NAKED. PT STATES THERE ARE YOU FUCKING HAPPY NOW. DID YOU LIKE THAT SHOW
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
[2019-10-11 08:01] LABS: Mucous, Urine 0 SEEN /hpf (<or=2+); Red Blood Cells-Urine 0 SEEN /hpf (0-5)
[2019-10-11 08:03] LABS: Color, Urine Yellow (Yellow); Glucose, Dipstick Normal (Normal); Ketone-Dipstick Negative (Negative); Leukocyte Esterase-Dipstick 100 /ul (Negative); Nitrite-Dipstick Negative (Negative); Occult Blood-Urine Negative /ul (Negative); Protein-Dipstick Negative (Negative); Urine Bilirubin Dipstick Negative (Negative); Urine Clarity Sl. Cloudy (Clear); Urine Urobilinogen Normal (Normal)
[2019-10-11 08:04] LABS: Absolute Lymphocyte Count 3.47 X10^3/uL (0.83-4.51); Absolute Neutrophil Count 10.5 X10^3/uL (2.0-7.7); Basophil# 0.09 X10^3/uL; Basophil% 0.6 % (0-1); Eosinophil# 0.13 X10^3/uL; Eosinophils% 0.8 % (0-5); Hematocrit 41.3 % (37-47); Hemoglobin 13.9 g/dL (12.0-15.0); Lymphocyte # 3.47 X10^3/ul (4.0); Lymphocyte % 22.2 % (19-41); Mean Corp Hgb Conc 33.7 g/dL (32-36); Mean Corpuscular Hgb 30.5 pg (27.0-32.0); Mean Corpuscular Volume 90.6 fL (81-99); Mean Platelet Vol. 8.8 fl (6.2-12.0); Monocyte# 1.18 X10^3/uL; Monocyte% 7.5 % (0-10); NRBC Flagged by Analyzer 0 % (0-5); Neutrophil # 10.48 X10^3/uL (2.7-7.7); Platelet Count 439 K/mm3 (150-450); RBC Distribution Width CV 13.3 % (11.6-14.6); RBC Distribution Width SD 43.8 fl (35.1-43.9); Red Blood Count 4.56 M/mm3 (4.2-5.4); White Blood Count 15.6 K/mm3 (4.4-11.0)
[2019-10-11] MEDS: LORazepam 1 MG Tablet PO ×2 (08:04→16:10)
[2019-10-11 08:12] LABS: Bacteria 1+ /hpf (None Seen); Squamous Epithelial Cells - UA 5-10 SEEN /hpf (5-10); White Blood Cells 5-10 SEEN /hpf (0-5)
[2019-10-11 08:13] LABS: Internal QC Validated? YES +Cl - CLEAR BKGD; Pregnancy, Serum, hCG Quali. NEGATIVE Negative
[2019-10-11 08:20] LABS: Anion Gap 7 (5-15); BUN 12 mg/dL (7-18); BUN/Creat Ratio 18.6 RATIO (10-20); Calcium,Total 9.1 mg/dL (8.5-10.1); Chloride 107 mmol/L (98-107); Creatinine, Serum 0.64 mg/dL (0.55-1.02); EST Glomerular Filtration Rate 105 mL/min (>60); Est Glom Filt Rate - Afr Amer 127 mL/min (>60); Estimated Creatinine Clearance 79.24 ml/min; Glucose 91 mg/dL (74-106); Potassium 4.3 mmol/L (3.5-5.1); Sodium Level 139 mmol/L (136-145)
[2019-10-11 08:22] LABS: Alcohol, Blood (Medical)-Serum < 3.0 mg/dL
[2019-10-11 08:27] LABS: Amphetamine Urine VISTA NEGATIVE (<1000 ng/mL); Barbiturate Urine VISTA NEGATIVE (< 200 ng/mL); Benzodiazepine Urine VISTA NEGATIVE (< 200 ng/mL); Cocaine Urine VISTA NEGATIVE (< 300 ng/mL); Ecstacy Urine VISTA NEGATIVE (< 500 ng/mL); Methadone Urine VISTA NEGATIVE (< 300 ng/mL); PCP Urine VISTA NEGATIVE (< 25 ng/mL); THC Urine VISTA POSITIVE (< 50 ng/mL); Vista UDS pH Range 6
--- NOTE | 2019-10-11 08:50 | ED.RN ---
crises on phone to talk. pt takes phone then begins screaming at them I WANT MY LIFE BACK. Pt then pulls back to throw phone, but is able to control self and place on the bed. pt hangs up refusing to talk with crises worker
--- NOTE | 2019-10-11 09:13 | ED.RN ---
pt screaming randomly. attempts to deescalate pt failing. pt reminded that we are attempting to help. pt screaming i want ativan,i want ativan. dr brewer.
--- NOTE | 2019-10-11 09:54 | ED.RN ---
pt intermittently screaming,yelling and semi spitting. pt remains in bed.
--- NOTE | 2019-10-11 10:02 | ED.RN ---
pt again screaming at this rn.jumping up and down. calling this rn. pt up out of bed and into hallway screaming at this rn. reminded to go back in her room.
--- NOTE | 2019-10-11 11:31 | ED.RN ---
pt again screaming and yelling at staff. pt out of you. pt screams if you send me anywhere you will pay. pt again redirected. attempted to serve pt lunch. pt requesting coffee. given water which was accepted. pt refuses lunch.
--- NOTE | 2019-10-11 12:02 | ED.RN ---
security in department as pt continues to yell and threaten.
[2019-10-11 12:37] VITALS: RESP 18
[2019-10-11 13:44] VITALS: BP 108/75; PULSE 90; RESP 18; O2SAT 99
[2019-10-11 15:44] VITALS: RESP 15
[2019-10-11 16:39] VITALS: BP 110/74; PULSE 88; RESP 18; TEMP 36.6; O2SAT 98
== END 2019-10-11 16:42 ==
LOC: ED 07:57
PROVIDERS: Emergency Provider Emergency Medicine
DX: R45.1 Restlessness and agitation (principal); Z72.0 Tobacco use
CPT/HCPCS: 80048; 80307; 80320; 81001; 84703; 85025; 87635; 99285; G2023; G0480; U0002

== ENCOUNTER 2020-02-29 10:43 | Emergency (ER) | payer MEDICAID, SELFPAY ==
[2020-02-29 10:44] VITALS: BP 145/97; PULSE 89; RESP 16; TEMP 35.7; O2SAT 99; BMI 19.5
[2020-02-29] MEDS: Ziprasidone IM 20 MG/ML VIAL IM (11:01)
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
[2020-02-29 11:52] LABS: Absolute Lymphocyte Count 2.43 X10^3/uL (0.83-4.51); Absolute Neutrophil Count 5.1 X10^3/uL (2.0-7.7); Basophil# 0.03 X10^3/uL; Basophil% 0.4 % (0-1); Eosinophil# 0.13 X10^3/uL; Eosinophils% 1.6 % (0-5); Hematocrit 35.1 % (37-47); Hemoglobin 11.6 g/dL (12.0-15.0); Lymphocyte # 2.43 X10^3/ul (4.0); Lymphocyte % 29.6 % (19-41); Mean Corpuscular Hgb 29.4 pg (27.0-32.0); Mean Corpuscular Volume 89.1 fL (81-99); Mean Platelet Vol. 9.7 fl (6.2-12.0); Monocyte# 0.49 X10^3/uL; NRBC Flagged by Analyzer 0 % (0-5); Neutrophil # 5.11 X10^3/uL (2.7-7.7); Neutrophil % 62.2 % (47-70); Platelet Count 289 K/mm3 (150-450); RBC Distribution Width CV 12.8 % (11.6-14.6); RBC Distribution Width SD 41.8 fl (35.1-43.9); Red Blood Count 3.94 M/mm3 (4.2-5.4); White Blood Count 8.2 K/mm3 (4.4-11.0)
[2020-02-29 12:05] LABS: Anion Gap 5 (5-15); BUN 11 mg/dL (7-18); Calcium,Total 9.1 mg/dL (8.5-10.1); Chloride 111 mmol/L (98-107); Creatinine, Serum 0.52 mg/dL (0.55-1.02); EST Glomerular Filtration Rate 134 mL/min (>60); Est Glom Filt Rate - Afr Amer 162 mL/min (>60); Glucose 102 mg/dL (74-106); Potassium 3.3 mmol/L (3.5-5.1); Sodium Level 143 mmol/L (136-145)
[2020-02-29 12:24] LABS: Internal QC Validated? YES +Cl - CLEAR BKGD
[2020-02-29 12:25] LABS: Pregnancy, Serum, hCG Quali. NEGATIVE Negative
[2020-02-29 12:35] VITALS: BP 105/55; PULSE 82; RESP 17
[2020-02-29 13:44] LABS: Mucous, Urine 0 SEEN /hpf (<or=2+); Red Blood Cells-Urine 0 SEEN /hpf (0-5)
[2020-02-29 13:53] LABS: Color, Urine Yellow (Yellow); Glucose, Dipstick Normal (Normal); Ketone-Dipstick Negative (Negative); Leukocyte Esterase-Dipstick 100 /ul (Negative); Nitrite-Dipstick Positive (Negative); Occult Blood-Urine Negative /ul (Negative); Protein-Dipstick Negative (Negative); Urine Bilirubin Dipstick Negative (Negative); Urine Clarity Sl. Cloudy (Clear); Urine Urobilinogen Normal (Normal)
[2020-02-29 14:00] LABS: Bacteria 2+ /hpf (None Seen); Squamous Epithelial Cells - UA 0-5 SEEN /hpf (5-10); White Blood Cells 0-5 SEEN /hpf (0-5)
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
[2020-02-29 14:24] LABS: Amphetamine Urine VISTA NEGATIVE (<1000 ng/mL); Barbiturate Urine VISTA NEGATIVE (< 200 ng/mL); Benzodiazepine Urine VISTA NEGATIVE (< 200 ng/mL); Cocaine Urine VISTA NEGATIVE (< 300 ng/mL); Ecstacy Urine VISTA NEGATIVE (< 500 ng/mL); Methadone Urine VISTA NEGATIVE (< 300 ng/mL); PCP Urine VISTA NEGATIVE (< 25 ng/mL); THC Urine VISTA POSITIVE (< 50 ng/mL); Vista UDS pH Range 6
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
--- NOTE | 2020-02-29 15:15 | CM.ED ---
SOCIAL WORK Referral called and faxed to Sarah at [facility]. Pending review. All questions answered regarding mediations administered after arrival. Plan: Pending review at [facility] Almita Hardin, CARGO SERVICE AGENT, HOLIDAY DETECTOR OPERATOR
--- NOTE | 2020-02-29 15:52 | CM.ED ---
SOCIAL WORK Call from Sarah at [facility]. Patient accepted by Dr. Awan to the ITU. Nurse to call report to option 1. [place] to set up transport. Almita Hardin, EMANATIONS ANALYSIS TECHNICIAN, COLD HEADER OPERATOR
--- NOTE | 2020-02-29 16:04 | NURSING ---
ACCEPTED AT INP
[2020-02-29] MEDS: LORazepam 1 MG Tablet 2 MG PO (16:48)
[2020-02-29 17:17] VITALS: BP 145/97; PULSE 83; RESP 17; O2SAT 96
--- NOTE | 2020-02-29 17:17 | NURSING ---
CALLED [facility]. ETA IS [phone] TO [phone]
== END 2020-02-29 19:04 ==
PROVIDERS: Emergency Provider Physician Assistant Medical; PCP Nurse Practitioner Family
DX: F23 Brief psychotic disorder (principal); F17.200 Nicotine dependence, unspecified, uncomplicated
CPT/HCPCS: 80048; 80307; 80320; 81001; 84703; 85025; 96372; 99285; G0480; J3486

== ENCOUNTER → 2021-01-04 11:04 | Outpatient (CLI) | payer MEDICAID, SELFPAY ==
--- NOTE | 2021-01-04 11:11 | RAD_ITS ---
STUDY: X-RAY CHEST REASON FOR EXAM: Female, 45 years old. COUGH TECHNIQUE: PA and lateral views of the chest. COMPARISON: None. FINDINGS: The lungs are clear and expanded. There is no demonstrated pleural abnormality. Normal size heart. Normal mediastinum and jeffrey. Normal visualized pulmonary arteries. Normal visualized aortic arch and descending thoracic aorta. Normal visualized thoracic spine. Normal visualized ribs, clavicles, and shoulders. There is no demonstrated abnormality of the visualized soft tissue structures of the upper abdomen. RAD/Chest PA and Lateral IMPRESSION: Normal x-ray examination of the chest. Electronically Signed: Bernabe Del Cid MD at 11:24 EDT Tel , Service support ,
== END ==
PROVIDERS: Referring Provider Nurse Practitioner Adult Health; Visit Provider Nurse Practitioner Adult Health
DX: R05 Cough (principal)
CPT/HCPCS: 71046

== ENCOUNTER → 2021-01-22 08:02 | Outpatient (CLI) | payer MEDICAID, SELFPAY ==
--- NOTE | 2021-01-22 12:39 | PFTCOMP ---
COMPLETE PULMONARY FUNCTION TEST INTERPRETATION Brief HPI: Patient is a 45 year old female, currently under the care of Kaela Roldan, who presents to [facility] for complete pulmonary function tests secondary to diagnosis of dyspnea. Respiratory therapist reports good effort and reproducible results. Interpretation: Forced expiration spirometry shows a mild large airways obstructive ventilatory defect with an FEV1 of 83% predicted. There is no significant bronchodilator response by strict ATS criteria. Spirograms are of good quality and plateau slowly, indicating slowly emptying areas of the lungs. The respiratory flow volume loop shows decreased expiratory flow rates at all lung volumes consistent with airway obstruction. Lung volumes by body plethysmography show a normal total lung capacity at 4.75 L, 113% predicted. All other lung volumes are within normal limits. Diffusion capacity by carbon monoxide is normal at 93% predicted. The airway resistance is normal. No previous pulmonary function tests were available for review. Impression: Irreversible mild large airways obstructive ventilatory defect in a pattern consistent with chronic bronchitis
== END ==
PROVIDERS: Visit Provider Nurse Practitioner Adult Health
DX: R05 Cough (principal)
CPT/HCPCS: 94060; 94726; 94729

== ENCOUNTER 2021-05-22 21:51 | Emergency (ER) | payer MEDICAID, SELFPAY ==
[2021-05-22 21:51] VITALS: BP 164/112; PULSE 111; RESP 16; TEMP 36.6; O2SAT 100; BMI 18.6
--- NOTE | 2021-05-22 21:52 | EKG12_ITS ---
Test Reason : DYSRHYTHMIA Blood Pressure : / mmHG Vent. Rate : 097 BPM Atrial Rate : 097 BPM P-R Int : 162 ms QRS Dur : 078 ms QT Int : 354 ms P-R-T Axes : 070 063 059 degrees QTc Int : 449 ms Normal sinus rhythm Normal ECG When compared with ECG of 08-FEB-2019 17:15, No significant change was found Confirmed by FARTUN GUAMAN, CHUCKIE ([id number]), fashion editor RUCHI CRISOSTOMO ([id number]) on 05/25/2021 8:38:37 AM Referred By: LAVERN Confirmed By:CHUCKIE WILLOUGHBY MD
--- NOTE | 2021-05-22 21:53 | EDS_ITS ---
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 Patient's called police because he was concerned about her being manic and in a bad way. Patient has history of schizophrenia. She apparently had been throwing lit cigarettes on the ground and making self-harm statements. Patient really unable to give much history as she is belligerent and has pressured and rapid speech and is very tangential. [facility] Medical History (Updated 05/22/21 @ 22:[address] Henny Garcia, DO) Bipolar 1 disorder Psychosis Home Medications aripiprazole 140 mg PO DAILY 05/22/21 [History Last Taken Unknown] sertraline 100 mg PO DAILY 05/22/21 [History Last Taken Unknown] Allergy/AdvReac Type Severity Reaction Status Date / Time No Known Allergies Allergy Verified 02/29/20 10:47 Social History Smoking Status: Current every day smoker tobacco type: cigarettes ROS ROS ED Constitutional Constitutional ED: Reports systems reviewed and no addt'l complaints, except as documented; Denies body ache(s), change in weight or chills Eyes Eyes: Denies acute decrease in peripheral vision, change in vision, double vision or loss of vision ENT ENT ED: Reports none; Denies ear pain, lip swelling, loss taste/smell, neck pain, otalgia or sore throat Cardiovascular Cardiovascular: Reports none; Denies abdominal pain, chest pain with activity, leg edema, lightheadedness, palpitations, rapid heart rate or syncope Respiratory/Chest Respiratory/Chest: Reports none; Denies change in mental status, dry cough, dyspnea, hemoptysis, shortness of breath at rest or shortness of breath with exertion Gastrointestinal Gastrointestinal: Reports none; Denies abdominal pain, change in stool character, diarrhea, hematemesis, hematochezia, melena, rectal bleeding or vomiting Genitourinary Genitourinary ED: Reports none; Denies abdominal discomfort, anuria, dysuria, genital pain or polyuria Musculoskeletal Musculoskeletal: Reports none; Denies arthralgias, back pain, difficulty wal calli, extremity pain, muscle weakness or myalgias Integumentary Reports none; Denies abscess or rash Neurologic Neurologic: Reports none; Denies abnormal gait, confusion, focal weakness, frequent falls, headache(s), loss of vision, numbness, paresthesias, radicular pain, vertigo or weakness Psychiatric Psychiatric: Reports systems reviewed and no addt'l complaints, except as documented, none and other Details: Agitated, manic ; Denies behavioral changes, confusion, difficulty concentrating, hallucinations, suicidal ideation, tactile hallucinations or visual hallucinations Endocrine Endocrinology: Denies none, cold intolerance, excessive sweating, fatigue or heat intolerance Hematologic/Lymphatic Hematologic/Lymphatic: Reports none; Denies anemia, easy bleeding or easy bruising Allergic/Immunologic Allergic/Immunologic ED: Denies as per HPI, none, lip swelling, mouth swelling, throat swelling, tongue swelling or hives EXAM Physical Exam Const Vital Signs: 05/22/21 21:51 Temperature 97.8 F Temperature Source Temporal Pulse Rate 111 H Respiratory Rate 16 Blood Pressure 164/112 H Blood Pressure Mean 129 Pulse Ox 100 Oxygen Delivery Method Room Air Positive well nourished and well developed General Appearance ED: well developed, irritable and NAD HEENT Reports TM's clear and moist mucous membranes normocephalic and atraumatic; Negative for trauma or tenderness Tympanic Membrane ED: Yes TM's clear Eyes PERRL and EOMs intact bilaterally General Eye ED: Negative for pale conjunctiva or scleral icterus Neck no lymphadenopathy, supple and no JVD General: Negative for tenderness Chest Wall inspection of chest normal and palpation of chest normal Chest: Negative for tenderness Resp normal respiratory effort and clear to auscultation bilaterally Effort and Inspection: Negative for respiratory distress or pain with movement Auscultation: Negative for rhonchi, wheezes or diminished lung sounds Cardio regular rate, regular rhythm, S1 normal heart sound, S2 normal heart sound and no murmurs Peripheral Pulses: pulses 2+ throughout GI normal to inspection, nondistended, normoactive bowel sounds, soft to palpation, non-tender, non-distended and no masses Back/Spine no CVA tenderness and no thoracic nor lumbar tenderness Extremity normal to inspection General Extremety ED: Negative for edema General Extremity: Negative for edema Neuro oriented x3, CN's II-XII intact bilaterally, no sensory deficits noted and gait normal Sensorium / Orientation: awake, alert, oriented to person, oriented to place and oriented to time Motor Exam: strength 5/5 throughout and strength abnormal Psych Attitude: belligerent, agitated and hostile Activity / Motor Behavior: psychomotor agitation, hyperactive, disorganized and restless Speech: rapid and pressured Mood & Affect: elevated mood, irritable, labile affect and hostile affect Thought Process: disorganized, confabulating, flight of ideas and illogical Skin no rashes or lesions noted and no wounds MDM MDM MDM Narrative Medical decision making narrative: Patient was agitated and belligerent with flight of ideas. Patient uncooperative. Patient had to be physically restrained with four-point restraints and medicated with Geodon and Ativan. Patient will require evaluation by crisis for placement to psychiatric facility for stabilization of decompensated psychosis. Care of patient turned over to evening physician awaiting valuation by crisis and final disposition Lab Data Attestation: I reviewed the patient's lab results. Labs: Laboratory Results - last 24 hr 05/22/21 05/22/21 22:20 22:35 WBC 12.0 H RBC 4.31 Hgb 12.3 Hct 36.5 L MCV 84.7 MCH 28.5 MCHC 33.7 RDW Std Deviation 39.5 RDW Coeff of Fabio 12.8 Plt Count 311 MPV 10.0 Immature Gran % (Auto) 0.300 Neut % (Auto) 67.8 Lymph % (Auto) 21.6 [place] % (Auto) 9.7 Eos % (Auto) 0.3 Baso % (Auto) 0.3 Absolute Neuts (auto) 8.1 H Absolute Lymphs (auto) 2.59 Nucleated RBC % 0 Ur Drug Screen Comment EKG Initial EKG: Attestation: I personally reviewed and interpreted this EKG as follows: Comments: Sinus rhythm with a ventricular rate of 97 bpm with no acute ST segment changes Discharge Plan Triage Chief Complaint: Mental Health ED Provider: Henny Garcia Dx/Rx/DC Orders Clinical Impression: Psychosis, Manic behavior Prescriptions: No Action sertraline 100 mg tablet 100 mg PO DAILY RF: 0 aripiprazole 10 mg tablet 140 mg PO DAILY RF: 0 Primary Care Provider: [facility] Domonique Conner [facility] - Disposition Disposition: Psychiatric Hospital or Unit
[2021-05-22] MEDS: LORazepam 2 MG/ML Syringe IM (21:58)
[2021-05-22] MEDS: Ziprasidone IM 20 MG/ML VIAL IM (21:58)
[2021-05-22 22:30] LABS: Absolute Lymphocyte Count 2.59 X10^3/uL (0.83-4.51); Absolute Neutrophil Count 8.1 X10^3/uL (2.0-7.7); Basophil# 0.04 X10^3/uL; Basophil% 0.3 % (0-1); Eosinophil# 0.04 X10^3/uL; Eosinophils% 0.3 % (0-5); Hematocrit 36.5 % (37-47); Hemoglobin 12.3 g/dL (12.0-15.0); Lymphocyte # 2.59 X10^3/ul (0.83-4.51); Lymphocyte % 21.6 % (19-41); Mean Corp Hgb Conc 33.7 g/dL (32-36); Mean Corpuscular Hgb 28.5 pg (27.0-32.0); Mean Corpuscular Volume 84.7 fL (81-99); Monocyte# 1.16 X10^3/uL; Monocyte% 9.7 % (0-10); NRBC Flagged by Analyzer 0 % (0-5); Neutrophil # 8.13 X10^3/uL (2.7-7.7); Neutrophil % 67.8 % (47-70); Platelet Count 311 K/mm3 (150-450); RBC Distribution Width CV 12.8 % (11.6-14.6); RBC Distribution Width SD 39.5 fl (35.1-43.9); Red Blood Count 4.31 M/mm3 (4.2-5.4)
[2021-05-22 22:45] LABS: Anion Gap 12 (5-15); BUN 25 mg/dL (7-18); BUN/Creat Ratio 22.7 RATIO (10-20); Calcium,Total 9.2 mg/dL (8.5-10.1); Chloride 109 mmol/L (98-107); EST Glomerular Filtration Rate 56 mL/min (>60); Est Glom Filt Rate - Afr Amer 68 mL/min (>60); Glucose 112 mg/dL (74-106); Potassium 3.1 mmol/L (3.5-5.1); Sodium Level 140 mmol/L (136-145)
[2021-05-22 22:47] LABS: Alcohol, Blood (Medical)-Serum < 3.0 mg/dL
[2021-05-22 23:06] LABS: Internal QC Validated? YES +Cl - CLEAR BKGD; Pregnancy, Serum, hCG Quali. NEGATIVE Negative
[2021-05-22 23:17] LABS: Amphetamine Urine VISTA POSITIVE (<1000 ng/mL); Barbiturate Urine VISTA NEGATIVE (< 200 ng/mL); Benzodiazepine Urine VISTA NEGATIVE (< 200 ng/mL); Cocaine Urine VISTA NEGATIVE (< 300 ng/mL); Ecstacy Urine VISTA POSITIVE (< 500 ng/mL); Methadone Urine VISTA NEGATIVE (< 300 ng/mL); PCP Urine VISTA NEGATIVE (< 25 ng/mL); THC Urine VISTA POSITIVE (< 50 ng/mL); Vista UDS pH Range 5
[2021-05-23] VITALS (9 sets, daily range): BP systolic 98–102; BP diastolic 70–78; PULSE 64–89; RESP 14–16; O2SAT 98–99
--- NOTE | 2021-05-23 06:31 | ED.RN ---
PT IS AWAKE AND WANTS TO LEAVE. MD AWARE AND STATES CRISIS NEEDS TO EVALUATE HER. CRISIS WAS CALLED.
--- NOTE | 2021-05-23 08:35 | ED.RN ---
resting quietly in bed with eyes closed, breathing even and unlabored. not disturbed.
--- NOTE | 2021-05-23 11:30 | ED.RN ---
updated pt regarding plan of care and going to [facility]. pt esculated. screaming ans swinging arms. states im not going anywhere unitl i talk to the police and the dr. dr kurtz at bedside. pt remains aggitaed talking about going home not going anywhere else.
[2021-05-23] MEDS: LORazepam 2 MG/ML Syringe 1 MG IM (11:58)
[2021-05-23] MEDS: Ziprasidone IM 20 MG/ML VIAL 10 MG IM (11:58)
--- NOTE | 2021-05-23 12:13 | ED.RN ---
pt medicated. resting in bed. no further yelling or esculation
--- NOTE | 2021-05-23 12:34 | ED.RN ---
attempted to call report. turn machine operator transferred to unit. phone rang for nurse with no answer for 5 minutes.
--- NOTE | 2021-05-23 13:07 | ED.RN ---
attempted to call nurse report to [facility]. no answer when transferred to nurse. on hold for 5 minutes.
== END 2021-05-23 12:30 ==
PROVIDERS: Emergency Provider Emergency Medicine
DX: F20.9 Schizophrenia, unspecified (principal); F31.9 Bipolar disorder, unspecified; F17.210 Nicotine dependence, cigarettes, uncomplicated; Z79.899 Other long term (current) drug therapy
CPT/HCPCS: 80048; 80307; 82077; 84703; 85025; 87426; 93005; 96372; 99285; J3486

== ENCOUNTER 2021-08-04 12:30 | Emergency (ER) | payer MEDICARE, MEDICAID, SELFPAY ==
[2021-08-04 12:31] VITALS: BP 146/97; PULSE 107; RESP 18; TEMP 36.4; O2SAT 100; BMI 19.5
[2021-08-04] MEDS: Ziprasidone IM 20 MG/ML VIAL IM (12:52)
--- NOTE | 2021-08-04 12:55 | ED.RN ---
DR MARR AT BEDSIDE TO EVALUATE PATIENT. PT WAS AGITATED IN TRIAGE STATES I JUST GOT WORKED UP AND A LITTLE EXCITED ALL I NEED IS A XANAX OR SOMETHING TO HELP ME CALM DOWN. DR MARR SETTLED PT DOWN IN THE ROOM AND INFORMED PT OF PLAN OF CARE INCLUDING URINE AND BLOOD SAMPLE AND CHANGING INTO A GOWN. PT STARTS RAISING HER VOICE AND TELLING MYRANDA NO ONE IS TAKING MY BLOOD, I'M NOT SUICIDAL I NEVER SAID THAT. PT CONTINUES TO GET AGITATED SCREAMING AT DR MARR THAT SHE IS REFUSING BLOOD WORK AND SHE WON'T DO ANYTHING WE ASK. PT PACING THE ROOM. PT THRASHING IN THE BED. RESTRAINTS APPLIED AT THIS TIME.
--- NOTE | 2021-08-04 13:30 | ED.RN ---
Addendum entered by Carlos Mai 08/04/21 14:27: left arm restraint removed Original Note: Patient requesting restraints to be removed. Patient has been educated on process of removing restraints. RN states as long as she remains cooperative we will continue to slowly removing restraints. Patient agreeable to process
[2021-08-04 13:40] LABS: Absolute Lymphocyte Count 2.25 X10^3/uL (0.83-4.51); Absolute Neutrophil Count 5.3 X10^3/uL (2.0-7.7); Basophil# 0.02 X10^3/uL; Basophil% 0.2 % (0-1); Eosinophil# 0.12 X10^3/uL; Eosinophils% 1.4 % (0-5); Hematocrit 38.3 % (37-47); Hemoglobin 12.7 g/dL (12.0-15.0); Lymphocyte # 2.25 X10^3/ul (0.83-4.51); Lymphocyte % 26.9 % (19-41); Mean Corp Hgb Conc 33.2 g/dL (32-36); Mean Corpuscular Hgb 29.7 pg (27.0-32.0); Mean Corpuscular Volume 89.5 fL (81-99); Mean Platelet Vol. 9.5 fl (6.2-12.0); Monocyte# 0.59 X10^3/uL; Monocyte% 7.1 % (0-10); NRBC Flagged by Analyzer 0 % (0-5); Neutrophil # 5.34 X10^3/uL (2.7-7.7); Platelet Count 404 K/mm3 (150-450); RBC Distribution Width CV 13.2 % (11.6-14.6); RBC Distribution Width SD 43.3 fl (35.1-43.9); Red Blood Count 4.28 M/mm3 (4.2-5.4); White Blood Count 8.4 K/mm3 (4.4-11.0)
--- NOTE | 2021-08-04 13:45 | ED.RN ---
Patients right leg restraint removed at this time. patient remains calm and cooperative
[2021-08-04 13:48] LABS: Internal QC Validated? YES +Cl - CLEAR BKGD; Pregnancy, Serum, hCG Quali. NEGATIVE Negative
[2021-08-04 13:51] LABS: Anion Gap 6 (5-15); BUN 13 mg/dL (7-18); BUN/Creat Ratio 17.3 RATIO (10-20); Chloride 110 mmol/L (98-107); Creatinine, Serum 0.75 mg/dL (0.55-1.02); EST Glomerular Filtration Rate 88 mL/min (>60); Est Glom Filt Rate - Afr Amer 106 mL/min (>60); Estimated Creatinine Clearance 65.69 ml/min; Glucose 99 mg/dL (74-106); Potassium 3.2 mmol/L (3.5-5.1); Sodium Level 143 mmol/L (136-145)
--- NOTE | 2021-08-04 14:00 | ED.RN ---
Patients remain 2 restraints have been removed at this time. Patient agrees to remain cooperative and change into hospital gowns at this time. Patients belongings collected- black sweater, leggings, pink long sleeve shirt, socks and shoes collected. Ticket for trespassing in patients shoe.
[2021-08-04 14:10] VITALS: BP 102/85; PULSE 75; RESP 16; O2SAT 99
[2021-08-04 14:47] LABS: Bacteria 0 SEEN /hpf (None Seen); Mucous, Urine 0 SEEN /hpf (<or=2+); Red Blood Cells-Urine 0 SEEN /hpf (0-5)
[2021-08-04 14:50] LABS: Color, Urine Yellow (Yellow); Glucose, Dipstick Normal (Normal); Ketone-Dipstick Negative (Negative); Nitrite-Dipstick POSITIVE (Negative); Protein-Dipstick 30 mg/dl (Negative); Urine Bilirubin Dipstick Negative (Negative); Urine Clarity Clear (Clear); Urine Urobilinogen Normal (Normal); Urine pH 6.5 (5.0 - 8.0)
[2021-08-04 14:51] LABS: Leukocyte Esterase-Dipstick 25 /ul (Negative); Occult Blood-Urine NEGATIVE /ul (Negative)
[2021-08-04 14:54] LABS: Squamous Epithelial Cells - UA 0-5 SEEN /hpf (5-10); White Blood Cells 0-5 SEEN /hpf (0-5)
[2021-08-04 15:11] LABS: Amphetamine Urine VISTA NEGATIVE (<1000 ng/mL); Barbiturate Urine VISTA NEGATIVE (< 200 ng/mL); Benzodiazepine Urine VISTA NEGATIVE (< 200 ng/mL); Cocaine Urine VISTA NEGATIVE (< 300 ng/mL); Ecstacy Urine VISTA NEGATIVE (< 500 ng/mL); Methadone Urine VISTA NEGATIVE (< 300 ng/mL); PCP Urine VISTA NEGATIVE (< 25 ng/mL); THC Urine VISTA POSITIVE (< 50 ng/mL); Vista UDS pH Range 6
--- NOTE | 2021-08-04 15:21 | EX.ED.VIS.PS ---
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 Nurses were asking for Geodon for this patient in triage because she was so hostile toward the staff and police and agitated, and she did continue to be uncooperative, agitated, and threatening to us when she got to the room. [facility] Medical History Bipolar 1 disorder Psychosis Home Medications aripiprazole 140 mg PO DAILY 05/22/21 [History Last Taken Unknown] sertraline 100 mg PO DAILY 05/22/21 [History Last Taken Unknown] Allergy/AdvReac Type Severity Reaction Status Date / Time No Known Allergies Allergy Verified 08/04/21 12:34 Social History Smoking Status: Current every day smoker tobacco type: cigarettes ROS ROS ED ROS Narrative Refuses to have a normal discussion about symptoms but states she has had no recent illness or injury. Review of Systems ROS Unobtainable: due to mental condition EXAM Physical Exam Const Vital Signs: 08/04/21 12:31 08/04/21 14:10 Temperature 97.5 F L Temperature Source Temporal Pulse Rate 107 H 75 Respiratory Rate 18 16 Blood Pressure 146/97 H 102/85 H Blood Pressure Mean 113 90 Pulse Ox 100 99 Oxygen Delivery Method Room Air Room Air Positive well nourished and well developed General Appearance ED: well developed and NAD HEENT Reports moist mucous membranes normocephalic and atraumatic Eyes PERRL and EOMs intact bilaterally Neck full ROM and supple Resp normal respiratory effort and clear to auscultation bilaterally Cardio regular rate, regular rhythm and no murmurs GI non-tender and non-distended Auscultation: normoactive bowel sounds Palpation: soft Back/Spine no CVA tenderness General Back: other FROM Extremity normal to inspection General Extremety ED: Negative for edema, pulses abnormal or tenderness General Extremity: Negative for edema or pulses abnormal Neuro oriented x3, CN's II-XII intact bilaterally and no sensory deficits noted Sensorium / Orientation: awake and alert Motor Exam: strength 5/5 throughout Psych Attitude: agitated and aggressive Mood & Affect: anxious, labile affect and hostile affect Thought Process: disorganized Skin no rashes or lesions noted and no wounds MDM MDM MDM Narrative Medical decision making narrative: Patient had admitted to the [facility] showing up in her urine, no other drugs seen, I think her potassium is likely reading a little low due to the fact that the patient was screaming and hyperventilating and an agitated/anxious state, and affect causing an acute respiratory alkalosis and shift of potassium to make it look low. This will be repeated to ensure that it has come back up after she was sedated somewhat with Geodon, which she required since she was not able to be verbally deescalated and continued to threaten staff, leave the room, and screamed at everyone disrupting care of the other patients. Initially, the patient stated that she was very anxious and that she would like some Xanax in order to calm down, I told the patient that I would be happy to work with her if she was cooperative and helped me to help her. She then immediately became extremely agitated and told us that there was no way we were going to get blood from her, I explained that we needed the blood work in order to help her, and she again thompson up out of bed toward me threatening, at which point we decided to go ahead with Geodon and restraints which were temporary since she was then more cooperative afterwards. At this time she is medically clear and being evaluated by crisis for placement. The patient is suspected to have not been on her medications recently; when I asked her if she had been taking them, she suggested that the answer I wanted to here was yes. Lab Data Attestation: I reviewed the patient's lab results. Labs: Laboratory Results - last 24 hr 08/04/21 08/04/21 08/04/21 13:25 13:25 13:25 WBC 8.4 RBC 4.28 Hgb 12.7 Hct 38.3 MCV 89.5 MCH 29.7 MCHC 33.2 RDW Std Deviation 43.3 RDW Coeff of Fabio 13.2 Plt Count 404 MPV 9.5 Immature Gran % (Auto) 0.400 Neut % (Auto) 64.0 Lymph % (Auto) 26.9 [place] % (Auto) 7.1 Eos % (Auto) 1.4 Baso % (Auto) 0.2 Absolute Neuts (auto) 5.3 Absolute Lymphs (auto) 2.25 Nucleated RBC % 0 Sodium 143 Potassium 3.2 L Chloride 110 H Carbon Dioxide 27.0 Anion Gap 6 BUN 13 Creatinine 0.75 Estim Creat Clear Calc 65.69 Est GFR (MDRD) Af Amer 106 Est GFR (MDRD) Non-Af 88 BUN/Creatinine Ratio 17.3 Glucose 99 Calcium 9.0 Serum , Qual Urine Color Urine Clarity Urine pH Ur Specific [place] Urine Protein Urine Glucose (UA) Urine Ketones Urine Occult Blood Urine Nitrite Urine Bilirubin Urine Urobilinogen Ur Leukocyte Esterase Urine RBC Urine WBC Ur Squamous Epith Cells Urine Bacteria Urine Mucus Urine Opiates Screen Urine Methadone Screen Ur Barbiturates Screen Ur Phencyclidine Scrn Ur Amphetamines Screen U Methamphetamin-MDMA U Benzodiazepines Scrn Urine Cocaine Screen U Cannabinoids Screen Ur Drug Screen Comment Ethyl Alcohol 5.0 08/04/21 08/04/21 08/04/21 13:25 14:40 14:40 WBC RBC Hgb Hct MCV MCH MCHC RDW Std Deviation RDW Coeff of Faboi Plt Count MPV Immature Gran % (Auto) Neut % (Auto) Lymph % (Auto) [place] % (Auto) Eos % (Auto) Baso % (Auto) Absolute Neuts (auto) Absolute Lymphs (auto) Nucleated RBC % Sodium Potassium Chloride Carbon Dioxide Anion Gap BUN Creatinine Estim Creat Clear Calc Est GFR (MDRD) Af Amer Est GFR (MDRD) Non-Af BUN/Creatinine Ratio Glucose Calcium Serum , Qual NEGATIVE Urine Color Yellow Urine Clarity Clear Urine pH 6.5 Ur Specific [place] 1.020 Urine Protein 30 H Urine Glucose (UA) Normal Urine Ketones Negative Urine Occult Blood NEGATIVE Urine Nitrite POSITIVE H Urine Bilirubin Negative Urine Urobilinogen Normal Ur Leukocyte Esterase 25 H Urine RBC 0 SEEN Urine WBC 0-5 SEEN Ur Squamous Epith Cells 0-5 SEEN Urine Bacteria 0 SEEN Urine Mucus 0 SEEN Urine Opiates Screen NEGATIVE Urine Methadone Screen NEGATIVE Ur Barbiturates Screen NEGATIVE Ur Phencyclidine Scrn NEGATIVE Ur Amphetamines Screen NEGATIVE U Methamphetamin-MDMA NEGATIVE U Benzodiazepines Scrn NEGATIVE Urine Cocaine Screen NEGATIVE U Cannabinoids Screen POSITIVE H Ur Drug Screen Comment Ethyl Alcohol Discharge Plan Triage Chief Complaint: Mental Health ED Provider: Orlin,Barry Dx/Rx/DC Orders Clinical Impression: Acute psychosis, Suicidal ideation Prescriptions: No Action sertraline 100 mg tablet 100 mg PO DAILY RF: 0 aripiprazole 10 mg tablet 140 mg PO DAILY RF: 0 Primary Care Provider: [facility] Domonique Conner Referrals: [facility] Ubaldo,Domonique Lubin [Primary Care Provider] - Disposition Disposition: Psychiatric Hospital or Unit
--- NOTE | 2021-08-04 15:30 | ED.RN ---
pt's brother arrives to ed looking for pt. pt not taking visitors at this time. brothers phone number left at front counter attendant. message passed onto pt to please call if she needed anything. armando galindo [phone]
[2021-08-04 15:51] VITALS: RESP 18
--- NOTE | 2021-08-04 16:05 | CM.ED ---
Social Work Consult: Mental Health Referral source: Dr. Ordaz Chief Complaint: Patient brought to the ED by [place] [employer] and pink slipped. Per pink slip patient has not been taking medications, has been making suicidal statements and calling crisis numerous times today asking for help. Marital/Social History: . Living Situation: I have a place to live. Support/Resources: Patient denies any supports or needing any help. Education/Employment History: Patient not answering question. Mental Health Treatment/History: Bipolar Disorder. Patient not taking medications. Per chart review, patient with history of inpatient psychiatric placement with last placement being in 2020. Triggers/Stressors: Patient not responding to question. Coping Skills: Patient not responding to question. Abuse Issues: patient not responding to question. Substance Abuse: Reviewed chart as patient not answering questions. Patient with history of Meth use, negative for Meth today. Patient positive for THC today on tox screen. Risk to Self/Others: Patient states to not be suicidal but per [place] and police report patient has been calling into crisis all day today asking for help and making suicidal comments. Mental Status Exam: A&Ox3 Appearance/General Behavior: Calm. Resting in bed. Mood/Affect: Depressed. Elevated. Communication Pattern: Responds to some questions, initially then patient appears to have fallen back to sleep. Patient not answering any further questions. Thought Process: Patient would not respond to questions when this social media assistant inquired about patient visual or auditory hallucinations. Judgment: Poor Assessment: Met with patient in room. Introduced self and social media assistant role. Patient recently up to bathroom. Patient answering initial questions with this social media assistant, but mainly with the same answer same shit different day. Patient eventual shuts eyes and stopped talking to this social media assistant. Nursing report that patient is willing to talk when patient wants to. Collaborating with Dr. Ordaz. Recommending inpatient psychiatric placement for stabilization as patient is off medications and has been expressing suicidal thoughts and reaching out for help. PLAN: Inpatient psychiatric placement Will continue to follow LJ Peng
[2021-08-04 16:41] LABS: Potassium 3.7 mmol/L (3.5-5.1)
--- NOTE | 2021-08-04 16:44 | CM.ED ---
Social Work Telephone call to [facility]. Referral made. Clinical information faxed. Will continue to follow. Luois FITZPATRICK, LJ
--- NOTE | 2021-08-04 17:04 | NURSING ---
ACCEPTED AT [facility]
--- NOTE | 2021-08-04 17:08 | CM.ED ---
Social Work Telephone call from MICamille Daniels. Patient accepted by Lise Valdez to the Intensive Unit. Nurse to call report to [phone] opt 1. Medical team updated. Patient continues to be sleeping. [place] Faxed. PLAN: JOSE E. Louis FITZPATRICK, LJ
--- NOTE | 2021-08-04 17:12 | NURSING ---
CALLED [facility], ETA IS 3 TO 4 HRS
[2021-08-04 19:00] VITALS: PULSE 67; RESP 16; O2SAT 99
[2021-08-04 20:00] VITALS: RESP 15
== END 2021-08-04 21:57 ==
PROVIDERS: Emergency Provider Emergency Medicine; Visit Provider Emergency Medicine
DX: F23 Brief psychotic disorder (principal); F31.9 Bipolar disorder, unspecified; F17.210 Nicotine dependence, cigarettes, uncomplicated; R45.851 Suicidal ideations
CPT/HCPCS: 36415; 80048; 80307; 81001; 82077; 84132; 84703; 85025; 87426; 96372; 99283; J3486

== ENCOUNTER 2021-10-01 00:02 | Emergency (ER) | payer MEDICARE, MEDICAID, SELFPAY ==
[2021-10-01 00:03] VITALS: BP 146/90; PULSE 116; RESP 18; TEMP 36.6; O2SAT 99; BMI 19.5
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
[2021-10-01 00:41] LABS: Absolute Lymphocyte Count 3.99 X10^3/uL (0.83-4.51); Basophil# 0.03 X10^3/uL; Basophil% 0.3 % (0-1); Eosinophils% 1.8 % (0-5); Hematocrit 39.6 % (37-47); Hemoglobin 13.2 g/dL (12.0-15.0); Lymphocyte # 3.99 X10^3/ul (0.83-4.51); Lymphocyte % 35.7 % (19-41); Mean Corp Hgb Conc 33.3 g/dL (32-36); Mean Corpuscular Hgb 29.6 pg (27.0-32.0); Mean Corpuscular Volume 88.8 fL (81-99); Mean Platelet Vol. 9.5 fl (6.2-12.0); Monocyte# 0.91 X10^3/uL; Monocyte% 8.1 % (0-10); NRBC Flagged by Analyzer 0 % (0-5); Neutrophil % 53.7 % (47-70); Platelet Count 337 K/mm3 (150-450); RBC Distribution Width CV 12.5 % (11.6-14.6); RBC Distribution Width SD 40.8 fl (35.1-43.9); Red Blood Count 4.46 M/mm3 (4.2-5.4); White Blood Count 11.2 K/mm3 (4.4-11.0)
[2021-10-01 00:56] LABS: Anion Gap 6 (5-15); BUN 15 mg/dL (7-18); BUN/Creat Ratio 19.9 RATIO (10-20); Calcium,Total 9.1 mg/dL (8.5-10.1); Chloride 111 mmol/L (98-107); Creatinine, Serum 0.75 mg/dL (0.55-1.02); EST Glomerular Filtration Rate 87 mL/min (>60); Est Glom Filt Rate - Afr Amer 105 mL/min (>60); Estimated Creatinine Clearance 65.69 ml/min; Glucose 106 mg/dL (74-106); Sodium Level 141 mmol/L (136-145)
[2021-10-01] MEDS: LORazepam 1 MG Tablet PO (01:02)
[2021-10-01 01:08] LABS: Alcohol, Blood (Medical)-Serum < 3.0 mg/dL
[2021-10-01 01:34] LABS: Internal QC Validated? YES +Cl - CLEAR BKGD; Pregnancy, Serum, hCG Quali. NEGATIVE Negative
[2021-10-01 02:22] LABS: Red Blood Cells-Urine 0 SEEN /hpf (0-5)
[2021-10-01 02:45] LABS: Color, Urine Yellow (Yellow); Glucose, Dipstick Normal (Normal); Ketone-Dipstick 5 mg/dl (Negative); Leukocyte Esterase-Dipstick 500 /ul (Negative); Nitrite-Dipstick Negative (Negative); Occult Blood-Urine Negative /ul (Negative); Protein-Dipstick 30 mg/dl (Negative); Urine Bilirubin Dipstick Negative (Negative); Urine Clarity Clear (Clear); Urine Urobilinogen 1 mg/dl (Normal)
[2021-10-01 02:51] LABS: Bacteria 3+ /hpf (None Seen); Mucous, Urine 1+ /hpf (<or=2+); Squamous Epithelial Cells - UA 10-25 SEEN /hpf (5-10); White Blood Cells 25-50 SEEN /hpf (0-5)
--- NOTE | 2021-10-01 02:52 | NURSING ---
CALLED CRISIS AT [phone]
[2021-10-01 02:54] LABS: Amphetamine Urine VISTA POSITIVE (<1000 ng/mL); Barbiturate Urine VISTA NEGATIVE (< 200 ng/mL); Benzodiazepine Urine VISTA NEGATIVE (< 200 ng/mL); Cocaine Urine VISTA NEGATIVE (< 300 ng/mL); Ecstacy Urine VISTA POSITIVE (< 500 ng/mL); Methadone Urine VISTA NEGATIVE (< 300 ng/mL); PCP Urine VISTA NEGATIVE (< 25 ng/mL); THC Urine VISTA POSITIVE (< 50 ng/mL); Vista UDS pH Range 5
[2021-10-01 03:38] VITALS: RESP 14
[2021-10-01 04:37] VITALS: PULSE 107; RESP 16; O2SAT 98
== END 2021-10-01 04:38 | disposition home or self-care (01) ==
PROVIDERS: Emergency Provider Student in an Organized Health Care Education/Training Program; PCP Nurse Practitioner Adult Health; Visit Provider Student in an Organized Health Care Education/Training Program
DX: F41.9 Anxiety disorder, unspecified (principal); F19.19 Other psychoactive substance abuse with unspecified psychoactive substance-induced disorder; F31.9 Bipolar disorder, unspecified; F17.210 Nicotine dependence, cigarettes, uncomplicated; Z79.899 Other long term (current) drug therapy
CPT/HCPCS: 36415; 80048; 80307; 81001; 82077; 84703; 85025; 87811; 99283; A4216

== ENCOUNTER 2021-12-01 08:50 | Emergency (ER) | payer MEDICARE, MEDICAID, SELFPAY ==
[2021-12-01 08:51] VITALS: BP 146/96; PULSE 98; RESP 16; TEMP 36.9; O2SAT 100; BMI 19.1
--- NOTE | 2021-12-01 09:17 | EDS_ITS ---
HPI History of Present Illness Chief Complaint: Anxiety Detail of Chief Complaint: Anxiety and possible UTI Informant: patient Narrative Narrative: Patient presents to the emergency department complaint of feeling very anxious. Patient also think she might have a UTI. Patient states that she was arrested yesterday for yelling at people and was let go from half-way today without any court dates. Patient states that she occasionally uses meth but has not used in a couple of days. Patient states that she just has a lot of thoughts but denies hearing voices or seeing things. She denies any suicidal or homicidal ideations. Patient also thinks she might have a UTI but does not have a lot of symptoms of pain or burning or hematuria. Patient states she has frequent UTIs. She denies any fevers. She denies vomiting. Patient states that she does not take any medications for anxiety. Prior similar symptoms: Yes PFSH PFSH Medical History Anxiety Bipolar 1 disorder Psychosis Home Medications aripiprazole 10 mg tablet 140 mg PO DAILY 05/22/21 [History Last Taken Unknown] sertraline 100 mg tablet 100 mg PO DAILY 05/22/21 [History Last Taken Unknown] Allergy/AdvReac Type Severity Reaction Status Date / Time No Known Allergies Allergy Verified 12/01/21 08:50 Social History Smoking Status: Current every day smoker tobacco type: cigarettes ROS ROS ED Review of Systems ROS Unobtainable: other Constitutional Constitutional ED: Reports lethargy; Denies chills, fever(s), sweats or weight loss Eyes Eyes: Denies blurry vision, change in vision or diplopia ENT ENT ED: Denies rhinorrhea or sore throat Cardiovascular Cardiovascular: Reports chest pain and racing heartbeat; Denies orthopnea Respiratory/Chest Respiratory/Chest: Reports dyspnea and dyspnea on exertion; Denies cough, orthopnea or sputum Gastrointestinal Gastrointestinal: Denies abdominal pain, diarrhea, nausea or vomiting Genitourinary Genitourinary ED: Denies dysuria, hematuria or urinary frequency Musculoskeletal Musculoskeletal: Denies arthralgias, back pain, myalgias or neck pain Integumentary Denies abscess, Abrasions or rash Neurologic Neurologic: Denies headache(s) or weakness Psychiatric Psychiatric: Reports anxiety; Denies depression or suicidal thoughts Endocrine Endocrinology: Denies polydipsia, polyphagia or polyuria Hematologic/Lymphatic Hematologic/Lymphatic: Denies easy bleeding, easy bruising or lymphadenopathy Allergic/Immunologic Allergic/Immunologic ED: Denies mouth swelling, tongue swelling or urticaria EXAM Physical Exam Const Vital Signs: 12/01/21 08:51 Temperature 98.5 F Temperature Source Temporal Pulse Rate 98 Respiratory Rate 16 Blood Pressure 146/96 H Blood Pressure Mean 112 Pulse Ox 100 Oxygen Delivery Method Room Air Positive well nourished and well developed General Appearance ED: well developed and NAD HEENT Reports TM's clear and moist mucous membranes normocephalic and atraumatic; Negative for trauma or tenderness Tympanic Membrane ED: Yes TM's clear Eyes PERRL and EOMs intact bilaterally General Eye ED: Negative for pale conjunctiva or scleral icterus Neck no lymphadenopathy, supple and no JVD General: Negative for tenderness Chest Wall inspection of chest normal and palpation of chest normal Chest: Negative for tenderness Resp normal respiratory effort and clear to auscultation bilaterally Effort and Inspection: Negative for respiratory distress or pain with movement Auscultation: Negative for rhonchi, wheezes or diminished lung sounds Cardio regular rate, regular rhythm, S1 normal heart sound, S2 normal heart sound and no murmurs Peripheral Pulses: pulses 2+ throughout GI normal to inspection, nondistended, normoactive bowel sounds, soft to palpation, non-tender, non-distended and no masses Back/Spine no CVA tenderness and no thoracic nor lumbar tenderness Extremity normal to inspection General Extremety ED: Negative for edema General Extremity: Negative for edema Neuro oriented x3, CN's II-XII intact bilaterally, no sensory deficits noted and gait normal Sensorium / Orientation: awake, alert, oriented to person, oriented to place and oriented to time Motor Exam: strength 5/5 throughout and strength abnormal Psych mental status grossly normal Skin no rashes or lesions noted and no wounds MDM MDM MDM Narrative Medical decision making narrative: Patient was given a milligram of Ativan p.o. when she had a urinalysis ordered. Patient stated that she decided she did not want to give a urine sample and she is asymptomatic and just wants to leave. She refused to wait for any type of discharge instructions and eloped from the emergency department. Patient seemed agitated at times and with labile mood. At this point I do not feel she requires emergency hold as she denies being suicidal or homicidal. She denies requiring any other treatment. Discharge Plan Triage Chief Complaint: Anxiety ED Provider: Henny Garcia Dx/Rx/DC Orders Clinical Impression: Anxiety Prescriptions: No Action sertraline 100 mg tablet 100 mg PO DAILY aripiprazole 10 mg tablet 140 mg PO DAILY Primary Care Provider: Kaela Roldan Referrals: Kaela Roldan, MUSIC ENGINEER-C [Primary Care Provider] - Disposition Disposition: Elopement Discharge Date/Time: 12/01/21 09:40
[2021-12-01] MEDS: LORazepam 1 MG Tablet PO (09:30)
== END 2021-12-01 09:40 | disposition left against medical advice (07) ==
LOC: ED 09:25
PROVIDERS: Emergency Provider Emergency Medicine; PCP Nurse Practitioner Adult Health; Visit Provider Emergency Medicine
DX: F41.9 Anxiety disorder, unspecified (principal); F31.9 Bipolar disorder, unspecified; F17.210 Nicotine dependence, cigarettes, uncomplicated; Z79.899 Other long term (current) drug therapy; Z87.440 Personal history of urinary (tract) infections
CPT/HCPCS: 99281

== ENCOUNTER 2021-12-02 20:27 | Emergency (ER) | payer MEDICARE, MEDICAID, SELFPAY ==
[2021-12-02 20:28] VITALS: BP 148/130; PULSE 119; RESP 18; TEMP 36.7; O2SAT 97; BMI 15.6
[2021-12-02 20:53] LABS: Absolute Lymphocyte Count 4.04 X10^3/uL (0.83-4.51); Absolute Neutrophil Count 9.8 X10^3/uL (2.0-7.7); Basophil# 0.03 X10^3/uL; Basophil% 0.2 % (0-1); Eosinophil# 0.16 X10^3/uL; Hemoglobin 11.9 g/dL (12.0-15.0); Lymphocyte # 4.04 X10^3/ul (0.83-4.51); Mean Corp Hgb Conc 33.1 g/dL (32-36); Mean Corpuscular Hgb 29.8 pg (27.0-32.0); Mean Corpuscular Volume 90.2 fL (81-99); Mean Platelet Vol. 9.7 fl (6.2-12.0); Monocyte# 1.49 X10^3/uL; Monocyte% 9.6 % (0-10); NRBC Flagged by Analyzer 0 % (0-5); Neutrophil # 9.75 X10^3/uL (2.7-7.7); Neutrophil % 62.7 % (47-70); Platelet Count 349 K/mm3 (150-450); RBC Distribution Width CV 12.8 % (11.6-14.6); RBC Distribution Width SD 42.5 fl (35.1-43.9); Red Blood Count 3.99 M/mm3 (4.2-5.4); White Blood Count 15.6 K/mm3 (4.4-11.0)
[2021-12-02] MEDS: LORazepam 1 MG Tablet PO (20:53)
[2021-12-02 21:01] LABS: Internal QC Validated? YES +Cl - CLEAR BKGD; Pregnancy, Serum, hCG Quali. NEGATIVE Negative
[2021-12-02 21:05] LABS: Anion Gap 9 (5-15); BUN 21 mg/dL (7-18); BUN/Creat Ratio 14.9 RATIO (10-20); Calcium,Total 9.6 mg/dL (8.5-10.1); Chloride 104 mmol/L (98-107); Creatinine, Serum 1.41 mg/dL (0.55-1.02); EST Glomerular Filtration Rate 42 mL/min (>60); Est Glom Filt Rate - Afr Amer 51 mL/min (>60); Estimated Creatinine Clearance 27.95 ml/min; Glucose 120 mg/dL (74-106); Potassium 3.7 mmol/L (3.5-5.1); Sodium Level 138 mmol/L (136-145)
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
[2021-12-02 22:55] VITALS: RESP 16; O2SAT 97
[2021-12-03] VITALS (10 sets, daily range): BP systolic 79–109; BP diastolic 49–70; PULSE 69–94; RESP 13–18; O2SAT 97–100
--- NOTE | 2021-12-03 02:38 | NURSING ---
pt still refusing to get urine sample. Refusing to walk to restroom. Bedside in room pt sat on toilet with underwear on yelling I can't pee pt returned to bed. Will continue to monitor.
[2021-12-03 05:49] LABS: Squamous Epithelial Cells - UA 0 SEEN /hpf (5-10)
[2021-12-03 05:58] LABS: Color, Urine Yellow (Yellow); Glucose, Dipstick Normal (Normal); Ketone-Dipstick 50 mg/dl (Negative); Leukocyte Esterase-Dipstick 100 /ul (Negative); Nitrite-Dipstick Negative (Negative); Occult Blood-Urine Negative /ul (Negative); Protein-Dipstick 30 mg/dl (Negative); Urine Bilirubin Dipstick Negative (Negative); Urine Clarity Clear (Clear); Urine Urobilinogen Normal (Normal)
[2021-12-03 06:05] LABS: Bacteria 1+ /hpf (None Seen); Red Blood Cells-Urine 0-5 SEEN /hpf (0-5); White Blood Cells 10-25 SEEN /hpf (0-5)
[2021-12-03 06:06] LABS: Amorphous Sediment 1+; Hyaline Cast 0-5 SEEN /lpf (0-5); Mucous, Urine 1+ /hpf (<or=2+)
[2021-12-03 06:12] LABS: Amphetamine Urine VISTA POSITIVE (<1000 ng/mL); Barbiturate Urine VISTA NEGATIVE (< 200 ng/mL); Benzodiazepine Urine VISTA NEGATIVE (< 200 ng/mL); Cocaine Urine VISTA POSITIVE (< 300 ng/mL); Ecstacy Urine VISTA POSITIVE (< 500 ng/mL); Methadone Urine VISTA NEGATIVE (< 300 ng/mL); PCP Urine VISTA NEGATIVE (< 25 ng/mL); THC Urine VISTA POSITIVE (< 50 ng/mL); Vista UDS pH Range 5
--- NOTE | 2021-12-03 06:15 | NURSING ---
CALLED CRISIS AT 6:13A
--- NOTE | 2021-12-03 06:37 | ED.RN ---
crisis called and made aware of the patient. They will be in to see the patient
--- NOTE | 2021-12-03 07:39 | ED.RN ---
KISHOR FROM CRISIS ATTEMPTS TO GO INTO ROOM AND TALK WITH PATIENT. PATIENT THREATENS TO LEAVE AND REFUSES TO TALK WITH CRISIS AT THIS TIME.
[2021-12-03] MEDS: LORazepam 1 MG Tablet PO ×2 (09:50→23:25)
[2021-12-03] MEDS: Ziprasidone IM 20 MG/ML VIAL IM (10:22)
--- NOTE | 2021-12-03 11:59 | CM.ED ---
Addendum entered by Lisa Conley 12/03/21 13:35: SW placed a call to [facility], they confirmed they received all of pt's referral and they are reviewing the referral now. Addendum entered by Lisa Conley 12/03/21 12:54: SW received call from [facility] stating they only received 5 pages of referral. SW refaxed referral to [facility]. Original Note: Social Work Note SW placed a call to Peg at Crisis and left message for update on pt. SW updated that [place] has spoken to Peg and referrals have been made to [facility] and [facility]. Lisa Conley CANOPY INSPECTOR, MANAGER CONTENT
--- NOTE | 2021-12-03 14:02 | EKG12_ITS ---
Test Reason : Blood Pressure : / mmHG Vent. Rate : 062 BPM Atrial Rate : 062 BPM P-R Int : 128 ms QRS Dur : 080 ms QT Int : 406 ms P-R-T Axes : 014 071 062 degrees QTc Int : 412 ms Normal sinus rhythm Septal TX, age undetermined, cannot be excluded Confirmed by KG GUAMAN, KARLA ([id number]), desk editor RUCHI CRISOSTOMO ([id number]) on 12/07/2021 10:12:39 AM Referred By: Confirmed By:KARLA SAUL MD
--- NOTE | 2021-12-03 14:39 | CM.ED ---
Social Work Note SW received call from [facility] stating they need EKG and CK level for pt. SW updated call center professional. Lisa Conley WORLD GEOGRAPHY TEACHER, DESIGN MAINTENANCE ENGINEER
--- NOTE | 2021-12-03 14:59 | NURSING ---
PER DR DOBSON, PT IS ABLE TO COME OUT OF RESTRAINTS AT THIS TIME. PT STATES SHE WILL BE COOPERATIVE. MEAL TRAY GIVEN
--- NOTE | 2021-12-03 15:04 | ED.RN ---
[facility] CALLED THIS RN REGARDING PATIENT PLACEMENT. PT IS ACCEPTED AT [facility] BY DR. MEDINA. [facility] NEEDS FAXED AND NURSE TO NURSE REPORT NEEDS CALL PRIOR TO ARRIVAL. PT CANNOT RECEIVE ANY FURTHER MEDICATIONS OR TRANSPORT WILL BE DELAYED BY [address] DOBSON MADE AWARE AND LEO SPEAR MADE AWARE.
[2021-12-03 15:21] LABS: CPK Total, Creatine Kinase 363 U/L (26-192)
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
--- NOTE | 2021-12-03 17:40 | NURSING ---
CALLED [facility], ETA IS 4 TO 5 HRS
--- NOTE | 2021-12-03 17:54 | NURSING ---
pt requesting to speak with social sciences professor at this time. pt calm and polite. denies further needs.
--- NOTE | 2021-12-03 18:07 | CM.ED ---
Social Work Note SW updated that pt is requesting to speak to SW. SW in to speak with pt. Pt states I think you can let me leave. SW informed pt that she is leaving and will be going to [facility] in [place]. Pt states Whatever, I don't want to talk about it anymore. Lisa Conley MATERIAL CREW SUPERVISOR, SEARCH PLANNER
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
[2021-12-04] MEDS: LORazepam 1 MG Tablet PO (06:11)
[2021-12-04 06:14] VITALS: BP 103/71; PULSE 90; RESP 18; O2SAT 97
== END 2021-12-04 06:47 ==
PROVIDERS: Emergency Medicine; Emergency Provider Student in an Organized Health Care Education/Training Program; PCP Nurse Practitioner Adult Health; Visit Provider Student in an Organized Health Care Education/Training Program
DX: F23 Brief psychotic disorder (principal); R45.1 Restlessness and agitation; F17.210 Nicotine dependence, cigarettes, uncomplicated
CPT/HCPCS: 36415; 80048; 80307; 81001; 82077; 82550; 84703; 85025; 87426; 93005; 96372; 99282; P9612; J3486

== ENCOUNTER 2021-12-29 11:23 | Emergency (ER) | payer MEDICARE, MEDICAID, SELFPAY ==
[2021-12-29] VITALS (10 sets, daily range): BP systolic 89–135; BP diastolic 64–99; PULSE 67–96; RESP 12–20; TEMP 36.4; O2SAT 97–99; BMI 21.4
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
[2021-12-29] MEDS: LORazepam 2 MG/ML Syringe IM (11:42)
[2021-12-29] MEDS: Ziprasidone IM 20 MG/ML VIAL 10 MG IM (11:42)
[2021-12-29 11:57] LABS: Absolute Lymphocyte Count 3.07 X10^3/uL (0.83-4.51); Absolute Neutrophil Count 5.9 X10^3/uL (2.0-7.7); Basophil# 0.04 X10^3/uL; Basophil% 0.4 % (0-1); Eosinophil# 0.34 X10^3/uL; Eosinophils% 3.3 % (0-5); Hemoglobin 12.5 g/dL (12.0-15.0); Lymphocyte # 3.07 X10^3/ul (0.83-4.51); Lymphocyte % 29.7 % (19-41); Mean Corp Hgb Conc 32.9 g/dL (32-36); Mean Corpuscular Hgb 29.6 pg (27.0-32.0); Mean Platelet Vol. 9.8 fl (6.2-12.0); Monocyte# 0.92 X10^3/uL; Monocyte% 8.9 % (0-10); NRBC Flagged by Analyzer 0 % (0-5); Neutrophil # 5.94 X10^3/uL (2.7-7.7); Neutrophil % 57.4 % (47-70); Platelet Count 300 K/mm3 (150-450); RBC Distribution Width CV 13.1 % (11.6-14.6); RBC Distribution Width SD 42.9 fl (35.1-43.9); Red Blood Count 4.22 M/mm3 (4.2-5.4); White Blood Count 10.3 K/mm3 (4.4-11.0)
[2021-12-29 12:08] LABS: Anion Gap 6 (5-15); BUN 14 mg/dL (7-18); BUN/Creat Ratio 20.2 RATIO (10-20); Calcium,Total 9.7 mg/dL (8.5-10.1); Chloride 108 mmol/L (98-107); Creatinine, Serum 0.69 mg/dL (0.55-1.02); EST Glomerular Filtration Rate 96 mL/min (>60); Est Glom Filt Rate - Afr Amer 116 mL/min (>60); Estimated Creatinine Clearance 71.62 ml/min; Glucose 96 mg/dL (74-106); Potassium 4.2 mmol/L (3.5-5.1); Sodium Level 142 mmol/L (136-145)
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
[2021-12-29 12:17] LABS: Alcohol, Blood (Medical)-Serum < 3.0 mg/dL
[2021-12-29 12:18] LABS: Amphetamine Urine VISTA POSITIVE (<1000 ng/mL); Barbiturate Urine VISTA NEGATIVE (< 200 ng/mL); Benzodiazepine Urine VISTA NEGATIVE (< 200 ng/mL); Cocaine Urine VISTA NEGATIVE (< 300 ng/mL); Ecstacy Urine VISTA POSITIVE (< 500 ng/mL); Methadone Urine VISTA NEGATIVE (< 300 ng/mL); PCP Urine VISTA NEGATIVE (< 25 ng/mL); THC Urine VISTA POSITIVE (< 50 ng/mL); Vista UDS pH Range 5
--- NOTE | 2021-12-29 12:28 | ED.RN ---
RESTRAINT D/C, PROVIDER AWARE.
[2021-12-29 12:41] LABS: Internal QC Validated? YES +Cl - CLEAR BKGD; Pregnancy, Serum, hCG Quali. NEGATIVE Negative
--- NOTE | 2021-12-29 13:25 | EKG12_ITS ---
Test Reason : Mental health Blood Pressure : / mmHG Vent. Rate : 068 BPM Atrial Rate : 068 BPM P-R Int : 148 ms QRS Dur : 076 ms QT Int : 386 ms P-R-T Axes : 074 076 070 degrees QTc Int : 410 ms Normal sinus rhythm with sinus arrhythmia Abnormal ECG Confirmed by JARVIS GUAMAN, ABBY ([id number]), technical writer and editor RUCHI CRISOSTOMO ([id number]) on 01/03/2022 11:08:54 AM Referred By: Abelardo Confirmed By:RENATE CONLEY MD
--- NOTE | 2021-12-29 13:50 | CM.ED ---
SOFIE called [facility]. They have beds SW faxed referrals to [facility] and [facility]. SW spoke to [employer] and they requested the pink slip, [employer] covid screen, EKG and CK level. When this newswriter receives this information it will be faxed to [facility]. Patient has been assigned a bed and accepted at [facility]. SW called [facility]. No bed needed for patient. Audrey GUAJARDO
[2021-12-29 14:12] LABS: CPK Total, Creatine Kinase 208 U/L (26-192)
--- NOTE | 2021-12-29 14:16 | NURSING ---
FAXED EKG, LABS, PINK SLIP AND COVID PAPER TO [facility]
--- NOTE | 2021-12-29 16:18 | CM.ED ---
SOFIE called [facility]. Staff said that their coworker was working on this but she will let them know I called for update. SOFIE called [facility]. Went to voice mail. No voice mail left Plan: Sue GUAJARDO
--- NOTE | 2021-12-29 16:39 | CM.ED ---
Lisa from [facility] called. She said that as long as patient has been out of restrains (which per Tech she has been out of restraints ) patient has been accepted at [facility] with accepting [place]. Dual Unit Room 109 B [phone] confirmed with sewage treatment plant operator Alyssa that the pink slip that was completed for patient is the original and she confirmed it was the original. Audrey Hurst IT SUPPORT SPECIALISTSamantha AG Plan: [facility]
--- NOTE | 2021-12-29 16:41 | NURSING ---
CALLED [facility], ETA IS 4 HRS
--- NOTE | 2021-12-29 17:56 | CM.ED ---
SOFIE called Sheridan at [facility]. SOFIE inquired about medication to assist patient with being comfortable. She said that patient can be given IM or PO any medication to assist with helping them feel comfortable but no restraints. She confirmed patient has not had restraints since this morning and SOFIE verified that. Audrey GUAJARDO
--- NOTE | 2021-12-29 19:43 | ED.RN ---
pt leaving to [facility]mina lewis, cooperative at this time
== END 2021-12-29 23:59 ==
PROVIDERS: Emergency Provider Emergency Medicine; PCP Nurse Practitioner Adult Health; Visit Provider Emergency Medicine
DX: F23 Brief psychotic disorder (principal); F31.9 Bipolar disorder, unspecified; F12.90 Cannabis use, unspecified, uncomplicated; F17.210 Nicotine dependence, cigarettes, uncomplicated; F15.90 Other stimulant use, unspecified, uncomplicated; F41.9 Anxiety disorder, unspecified; Z91.19 Patient's noncompliance with other medical treatment and regimen
CPT/HCPCS: 80048; 80307; 82077; 82550; 84703; 85025; 87811; 93005; 96372; 99285; J3486

== ENCOUNTER 2022-02-17 11:52 | Emergency (ER) | payer MEDICARE, MEDICAID, SELFPAY ==
[2022-02-17 11:53] VITALS: BP 162/106; PULSE 72; RESP 18; TEMP 35.1; O2SAT 97; BMI 19.5
--- NOTE | 2022-02-17 12:00 | EX.ED.DYSGE1 ---
HPI History of Present Illness Chief Complaint: Anxiety Detail of Chief Complaint: Anxiety Informant: patient Narrative Narrative: Patient presents the emergency department with complaint of a panic attack. Patient states she suffers from chronic anxiety and panic attacks. Patient also states that she needs a inhaler. Patient is very brief with answering questions. She denies recent illness. She denies chest pain or significant shortness of breath. Patient has had multiple visits to this emergency department for anxiety and psychiatric type complaints with prior hospitalizations and oftentimes becomes aggressive and belligerent. Patient apparently was yelling at staff in triage. Prior similar symptoms: Yes PFSH PFS Medical History Anxiety Bipolar 1 disorder Psychosis Home Medications aripiprazole 10 mg tablet 140 mg PO DAILY 05/22/21 [History Last Taken Unknown] sertraline 100 mg tablet 100 mg PO DAILY 05/22/21 [History Last Taken Unknown] Allergy/AdvReac Type Severity Reaction Status Date / Time No Known Allergies Allergy Verified 02/17/22 11:53 Social History (Updated 12/29/21 @ 11:[address] Faraz Zhou MD) household members: none Smoking Status: Current every day smoker tobacco type: cigarettes substance use type: unknown ROS ROS ED Review of Systems ROS Unobtainable: other Constitutional Constitutional ED: Reports lethargy; Denies chills, fever(s), sweats or weight loss Eyes Eyes: Denies blurry vision, change in vision or diplopia ENT ENT ED: Denies rhinorrhea or sore throat Cardiovascular Cardiovascular: Denies chest pain, orthopnea or racing heartbeat Respiratory/Chest Respiratory/Chest: Reports dyspnea; Denies cough, dyspnea on exertion, orthopnea or sputum Gastrointestinal Gastrointestinal: Denies abdominal pain, diarrhea, nausea or vomiting Genitourinary Genitourinary ED: Denies dysuria, hematuria or urinary frequency Musculoskeletal Musculoskeletal: Denies arthralgias, back pain, myalgias or neck pain Integumentary Denies abscess, Abrasions or rash Neurologic Neurologic: Denies headache(s) or weakness Psychiatric Psychiatric: Reports anxiety; Denies depression or suicidal thoughts Endocrine Endocrinology: Denies polydipsia, polyphagia or polyuria Hematologic/Lymphatic Hematologic/Lymphatic: Denies easy bleeding, easy bruising or lymphadenopathy Allergic/Immunologic Allergic/Immunologic ED: Denies mouth swelling, tongue swelling or urticaria EXAM Physical Exam Const Vital Signs: 02/17/22 11:53 Temperature 95.1 F L Temperature Source Temporal Pulse Rate 72 Respiratory Rate 18 Blood Pressure 162/106 H Blood Pressure Mean 124 Pulse Ox 97 Oxygen Delivery Method Room Air Positive well nourished and well developed General Appearance ED: well developed and NAD HEENT Reports TM's clear and moist mucous membranes normocephalic and atraumatic; Negative for trauma or tenderness Tympanic Membrane ED: Yes TM's clear Eyes PERRL and EOMs intact bilaterally General Eye ED: Negative for pale conjunctiva or scleral icterus Neck no lymphadenopathy, supple and no JVD General: Negative for tenderness Chest Wall inspection of chest normal and palpation of chest normal Chest: Negative for tenderness Resp normal respiratory effort and clear to auscultation bilaterally Effort and Inspection: Negative for respiratory distress or pain with movement Auscultation: Negative for rhonchi, wheezes or diminished lung sounds Cardio regular rate, regular rhythm, S1 normal heart sound, S2 normal heart sound and no murmurs Peripheral Pulses: pulses 2+ throughout GI normal to inspection, nondistended, normoactive bowel sounds, soft to palpation, non-tender, non-distended and no masses Back/Spine no CVA tenderness and no thoracic nor lumbar tenderness Extremity normal to inspection General Extremety ED: Negative for edema General Extremity: Negative for edema Neuro oriented x3, CN's II-XII intact bilaterally, no sensory deficits noted and gait normal Sensorium / Orientation: awake, alert, oriented to person, oriented to place and oriented to time Motor Exam: strength 5/5 throughout and strength abnormal Psych mental status grossly normal Skin no rashes or lesions noted and no wounds MDM MDM MDM Narrative Medical decision making narrative: Patient will be given 1 dose of Ativan 1 mg p.o. She will be given an albuterol inhaler. Patient is in no respiratory distress and otherwise does not appear ill. She denies feeling suicidal or homicidal. She will be discharged to home with advised to follow-up with primary care physician correctional substance abuse counselor for no doc. Discharge Plan Triage Chief Complaint: Anxiety ED Provider: Henny Garcia Dx/Rx/DC Orders Clinical Impression: Anxiety Instructions: ED Anxiety Reaction Prescriptions: No Action sertraline 100 mg tablet 100 mg PO DAILY aripiprazole 10 mg tablet 140 mg PO DAILY Primary Care Provider: Kaela Roldan Referrals: Kaela Roldan, TAR DISTILLATION SUPERVISOR-C [Primary Care Provider] - 3-5 Days Disposition Disposition: Home, Self Care
[2022-02-17] MEDS: LORazepam 1 MG Tablet PO (12:06)
--- NOTE | 2022-02-17 12:13 | ED.RN ---
this nurse walked into the room. pt. hostile yelling swear words. informed pt. we will not be talking like that. medicated as ordered. pt. throwing trash around room. asked pt. to stop and if she could please pick that up. pt continues to yell. walks out stating she fucking leaving. aware.
== END 2022-02-17 12:23 | disposition left against medical advice (07) ==
PROVIDERS: Emergency Provider Emergency Medicine; PCP Nurse Practitioner Adult Health; Visit Provider Emergency Medicine
DX: F41.9 Anxiety disorder, unspecified (principal); F31.9 Bipolar disorder, unspecified; F17.210 Nicotine dependence, cigarettes, uncomplicated; Z79.899 Other long term (current) drug therapy
CPT/HCPCS: 99282

== ENCOUNTER 2022-02-20 10:56 | Emergency (ER) | payer MEDICARE, MEDICAID, SELFPAY ==
[2022-02-20 10:57] VITALS: BP 140/86; PULSE 110; RESP 16; TEMP 36; O2SAT 100; BMI 19.5
--- NOTE | 2022-02-20 11:09 | EX.ED.VIS.PS ---
HPI <CHRIS Ritter - Last Filed: 02/20/22 11:20> HPI - Psych History of Present Illness Chief Complaint: Mental Health Narrative Narrative: Patient with history of psychiatric disorder was brought in by PD stating she is having anxiety attack. She is asking for an inhaler and Ativan. She is hostile and short with answering questions. She denies suicidal or homicidal ideation. She states she still sees her psychiatrist Dr. Miller and takes sertraline and Abilify. <Dr. Barry Ordaz MD - Last Filed: 02/20/22 11:26> HPI - Psych Narrative Narrative: Patient with history of psychiatric disorder was brought in by PD stating she is having anxiety attack. She is asking for an inhaler and Ativan. She is hostile and short with answering questions. She denies suicidal or homicidal ideation. She states she still sees her psychiatrist Dr. Miller and takes sertraline and Abilify. Patient was brought in by police, she basically was making a public disturbance and other people called because she was screaming at them wherever she was picked up. Police asked her if she wanted to go to longterm or home, and she told them the hospital. Here, she tells us that she demands Ativan as she is screaming at us, in addition to an albuterol inhaler. [facility] <CHRIS Ritter - Last Filed: 02/20/22 11:20> [facility] Medical History Anxiety Bipolar 1 disorder Psychosis Home Medications aripiprazole 10 mg tablet 140 mg PO DAILY 05/22/21 [History Last Taken Unknown] sertraline 100 mg tablet 100 mg PO DAILY 05/22/21 [History Last Taken Unknown] albuterol sulfate 90 mcg/actuation aerosol inhaler (ProAir HFA) 1 inh inhalation Q6H PRN shortness of breath or wheezing #6.7 grams 02/20/22 [Rx Last Taken Unknown] Allergy/AdvReac Type Severity Reaction Status Date / Time No Known Allergies Allergy Verified 02/20/22 10:59 Social History (Updated 12/29/21 @ 11:[address] Faraz Zhou MD) household members: none Smoking Status: Current every day smoker tobacco type: cigarettes substance use type: unknown ROS <CHRIS Ritter - Last Filed: 02/20/22 11:20> ROS ED ROS Narrative Constitutional: Negative for fever, chills, malaise. Eyes: Negative for visual change. ENT: Negative for sore throat, ear pain, rhinorrhea. CVS: Negative for palpitations, chest pain, syncope. Respiratory: Negative for shortness of breath, cough. GI: Negative for abdominal pain, nausea, vomiting. : Negative for dysuria, hematuria or frequency. Neuro: Negative for headache, motor/sensory dysfunction. Skin: Negative for rash, abscess, or wound. Musc: Negative for joint pain, swelling, trauma. Heme: Negative for easy bruising, bleeding, lymphadenopathy. EXAM <CHRIS Ritter - Last Filed: 02/20/22 11:20> Physical Exam Narrative Exam Narrative: CONST: Patient awake and alert, stool. EYES: Normal inspection. NECK: Normal inspection. RESP: No respiratory distress. CVS: Regular rate and rhythm, no murmur, no gallop. SKIN: Color normal, no rash, warm, dry, intact. EXTREMITIES: Normal appearance, no pedal edema. NEURO: Oriented x4. PSYCH: Hostile, yelling, short to answer questions. Const Vital Signs: 02/20/22 10:57 Temperature 96.8 F L Temperature Source Temporal Pulse Rate 110 H Respiratory Rate 16 Blood Pressure 140/86 H Blood Pressure Mean 104 Pulse Ox 100 Oxygen Delivery Method Room Air <Dr. Barry Ordaz MD - Last Filed: 02/20/22 11:26> Physical Exam Const Vital Signs: 02/20/22 10:57 Temperature 96.8 F L Temperature Source Temporal Pulse Rate 110 H Respiratory Rate 16 Blood Pressure 140/86 H Blood Pressure Mean 104 Pulse Ox 100 Oxygen Delivery Method Room Air MDM <CHRIS Ritter - Last Filed: 02/20/22 11:20> MDM MDM Narrative Medical decision making narrative: Patient has a long history of anxiety and mental health issues. She presents today complaining of an anxiety attack. She is requesting an albuterol inhaler. She was initially yelling and hostile but is easily able to calm herself. She is answering my questions appropriately. She tells me she is filling her sertraline and Abilify at [facility] and has been taking it. She does not appear psychotic and is not suicidal or homicidal and does not need acute admission. I sent an albuterol inhaler prescription to her pharmacy and told her to follow-up with her psychiatrist and she was discharged. <Dr. Barry Ordaz MD - Last Filed: 02/20/22 11:26> [facility] Narrative Medical decision making narrative: Patient has a long history of anxiety and mental health issues. She presents today complaining of an anxiety attack. She is requesting an albuterol inhaler. She was initially yelling and hostile but is easily able to calm herself. She is answering my questions appropriately. She tells me she is filling her sertraline and Abilify at [facility] and has been taking it. She does not appear psychotic and is not suicidal or homicidal and does not need acute admission. I sent an albuterol inhaler prescription to her pharmacy and told her to follow-up with her psychiatrist and she was discharged. Seen and evaluated independently and in conjunction with physician customer relations assistant. Agree with notes above unless documented otherwise. In addition, patient is not acutely psychotic; she is able, when she chooses, to call only tell us her medications, the physician that she sees for psychiatry, and the fact that she has her medications and that she is taking them. I advised her that we are not here to give out controlled substances especially under duress of demand and I am not giving her Ativan. When we left her room so that she could stop screaming at us, she sat calmly. I believe all of this is behavioral. She has been sent to psychiatric facilities multiple times in the past when she was suicidal which she is not today, and she continues to reappear here yelling at staff and everyone else while disrupting patient care. I see no reason to continue leaving her here or to restrain her, she is discharged, she walked out on her own. Discharge Plan Triage Chief Complaint: Mental Health ED Midlevel Provider: Laila Rivera ED Provider: Barry Ordaz Dx/Rx/DC Orders Clinical Impression: Anxiety Instructions: Anxiety Disorders Tx Prescriptions: New albuterol sulfate [ProAir HFA] 90 mcg/actuation HFA aerosol inhaler 1 inh inhalation Q6H PRN (Reason: shortness of breath or wheezing) Qty: 6.7 0RF No Action sertraline 100 mg tablet 100 mg PO DAILY aripiprazole 10 mg tablet 140 mg PO DAILY Primary Care Provider: Kaela Roldan Referrals: Kaela Roldan, EDUCATIONAL RESOURCE COORDINATOR-C [Primary Care Provider] - Activity Restrictions/Additional Instructions: See your primary care doctor and Dr. Miller for your anxiety and medication treatment. Disposition Disposition: Home, Self Care
== END 2022-02-20 11:23 | disposition home or self-care (01) ==
PROVIDERS: Emergency Provider Emergency Medicine; PCP Nurse Practitioner Adult Health; Visit Provider Emergency Medicine
DX: F41.9 Anxiety disorder, unspecified (principal); F31.9 Bipolar disorder, unspecified; F17.210 Nicotine dependence, cigarettes, uncomplicated; Z79.899 Other long term (current) drug therapy
CPT/HCPCS: 99282

== ENCOUNTER 2022-02-22 13:23 | Emergency (ER) | payer MEDICARE, MEDICAID, SELFPAY ==
[2022-02-22 13:24] VITALS: BP 131/105; PULSE 104; RESP 15; TEMP 36.6; O2SAT 96; BMI 19.3
--- NOTE | 2022-02-22 14:08 | EX.ED.DYSGE1 ---
HPI History of Present Illness Chief Complaint: Anxiety Informant: patient Narrative Narrative: With [id number] female theatric conditions presenting to the emergency room for the third time in this week for anxiety. She states that she is having a panic attack and needs Ativan. She states that she does not get Ativan she is going to leave. She denies any suicidal or homicidal ideation. She states that she sees a psychiatrist but the psychiatrist will give her Ativan because of her drug use. PFSH PFS Medical History Anxiety Bipolar 1 disorder Psychosis Home Medications aripiprazole 10 mg tablet 140 mg PO DAILY 05/22/21 [History Last Taken Unknown] sertraline 100 mg tablet 100 mg PO DAILY 05/22/21 [History Last Taken Unknown] albuterol sulfate 90 mcg/actuation aerosol inhaler (ProAir HFA) 1 inh inhalation Q6H PRN shortness of breath or wheezing #6.7 grams 02/20/22 [Rx Last Taken Unknown] Allergy/AdvReac Type Severity Reaction Status Date / Time No Known Allergies Allergy Verified 02/22/22 13:24 Social History household members: none Smoking Status: Current every day smoker tobacco type: cigarettes substance use type: unknown ROS ROS ED Constitutional Constitutional ED: Denies chills or weight loss Eyes Eyes: Denies change in vision or diplopia ENT ENT ED: Denies ear pain, rhinorrhea or sore throat Cardiovascular Cardiovascular: Denies chest pain, orthopnea, palpitations or racing heartbeat Respiratory/Chest Respiratory/Chest: Denies cough, dyspnea or orthopnea Gastrointestinal Gastrointestinal: Denies abdominal pain, diarrhea, nausea or vomiting Genitourinary Genitourinary ED: Denies dysuria, hematuria or urinary frequency Musculoskeletal Musculoskeletal: Denies arthralgias or myalgias Integumentary Denies abscess or rash Neurologic Neurologic: Denies headache(s) or weakness Psychiatric Psychiatric: Reports anxiety; Denies depression, suicidal ideation or suicidal thoughts Endocrine Endocrinology: Denies polydipsia, polyphagia or polyuria Allergic/Immunologic Allergic/Immunologic ED: Denies mouth swelling, tongue swelling or urticaria EXAM Physical Exam Narrative Exam Narrative: Patient is up pacing around the room. She is cursing at staff. She walks to the bathroom. She slams doors. Const Vital Signs: 02/22/22 13:24 Temperature 97.8 F Temperature Source Temporal Pulse Rate 104 H Respiratory Rate 15 Blood Pressure 131/105 H Blood Pressure Mean 113 Pulse Ox 96 Oxygen Delivery Method Room Air Positive well nourished and well developed General Appearance ED: well developed HEENT Reports normocephalic, head/scalp atraumatic and moist mucous membranes Eyes PERRL and EOMs intact bilaterally Neck no lymphadenopathy, supple and no JVD Resp normal respiratory effort and clear to auscultation bilaterally Cardio regular rate, regular rhythm and no murmurs GI normal to inspection, nondistended, normoactive bowel sounds and non-tender Palpation: soft Back/Spine no CVA tenderness and normal ROM Extremity normal to inspection General Extremety ED: Negative for edema General Extremity: Negative for edema Neuro oriented x3 and CN's II-XII intact bilaterally Sensorium / Orientation: alert Motor Exam: strength 5/5 throughout Psych Psych Narrative: Patient is agitated and not directable. She is not suicidal homicidal. She is demonstrating manipulative behavioral patterns. Attitude: agitated Mood & Affect: Negative for depressed or tearful Skin no rashes or lesions noted and no wounds MDM MDM MDM Narrative Medical decision making narrative: I do not believe the patient is having a panic attack. I believe she is looking for Ativan. 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 Patient then gets up screams at me tells me to fuck off and slams the door up against the wall. It would appear that my decision was the correct decision Discharge Plan Triage Chief Complaint: Anxiety ED Provider: Frankie Viera Dx/Rx/DC Orders Clinical Impression: Bipolar disorder Prescriptions: No Action sertraline 100 mg tablet 100 mg PO DAILY aripiprazole 10 mg tablet 140 mg PO DAILY albuterol sulfate [ProAir HFA] 90 mcg/actuation HFA aerosol inhaler 1 inh inhalation Q6H PRN (Reason: shortness of breath or wheezing) Qty: 6.7 0RF Primary Care Provider: NOT,DEFINED Referrals: NOT,DEFINED [Primary Care Provider] - Activity Restrictions/Additional Instructions: I would recommend you follow-up with your psychiatrist as you probably would benefit from very intensive counseling. Disposition Disposition: Home, Self Care Capacity Capacity Assessment Tool Can the patient make a choice & communicate that choice?: Yes Can the patient understand benefits, risks and alternatives?: Yes Can the patient make a logical, rational choice?: Yes Is the choice the patient makes consistent w/ their values?: Yes Is there an impending, emergent risk to the patient?: No Does the patient have an Advance Directive?: Unable to Determine Is there a Surrogate Available?: Unable to Determine i.e. HCPOA: Unable to Determine i.e. close relative (spouse, child, parent, sibling)?: Unable to Determine
--- NOTE | 2022-02-22 14:21 | ED.RN ---
1410: Patient slammed door and quickly exited the ER. Patient was speaking with doctor prior to leaving.
== END 2022-02-22 14:25 | disposition home or self-care (01) ==
LOC: ED 14:17
PROVIDERS: Emergency Provider Emergency Medicine; Visit Provider Emergency Medicine
DX: F41.9 Anxiety disorder, unspecified (principal); F31.9 Bipolar disorder, unspecified; F17.210 Nicotine dependence, cigarettes, uncomplicated; Z79.899 Other long term (current) drug therapy
CPT/HCPCS: 99282

== ENCOUNTER 2022-02-23 04:39 | Emergency (ER) | payer MEDICARE, MEDICAID, SELFPAY ==
[2022-02-23 04:40] VITALS: BP 134/94; PULSE 112; RESP 16; TEMP 36.9; O2SAT 99; BMI 21.2
--- NOTE | 2022-02-23 05:23 | EDS_ITS ---
HPI History of Present Illness Chief Complaint: Anxiety Informant: patient Narrative Narrative: Patient states she came here because she had another panic attack. I asked if she knows what set off her panic attack. She got upset and states everything sets off her panic attack. She started getting aggressive with a very nasty attitude toward me. I told her we would try to talk in a little bit. I had another very ill patient I had to go talk with. She did not want me to talk to her. She did not want a physical exam. She refused to answer review of systems question [facility] Medical History Anxiety Bipolar 1 disorder Psychosis Home Medications aripiprazole 10 mg tablet 140 mg PO DAILY 05/22/21 [History Last Taken Unknown] sertraline 100 mg tablet 100 mg PO DAILY 05/22/21 [History Last Taken Unknown] albuterol sulfate 90 mcg/actuation aerosol inhaler (ProAir HFA) 1 inh inhalation Q6H PRN shortness of breath or wheezing #6.7 grams 02/20/22 [Rx Last Taken Unknown] Allergy/AdvReac Type Severity Reaction Status Date / Time No Known Allergies Allergy Verified 02/23/22 04:45 Social History household members: none Smoking Status: Current every day smoker tobacco type: cigarettes substance use type: unknown ROS ROS ED ROS Narrative Review of systems is limited. Patient does not want to answer all of my questions. She finds them causing her more stress and anxiety. EXAM Physical Exam Narrative Exam Narrative: Physical exam is initially quite limited. It is done from a distance as patient will not allow a physical exam at this time. These are all visual evaluations. Const Vital Signs: 02/23/22 04:40 Temperature 98.4 F Temperature Source Temporal Pulse Rate 112 H Respiratory Rate 16 Blood Pressure 134/94 H Blood Pressure Mean 107 Pulse Ox 99 Oxygen Delivery Method Room Air Positive well nourished and well developed General Appearance ED: well developed HEENT Reports moist mucous membranes Eyes General Eye ED: Negative for scleral icterus Resp normal respiratory effort GI Inspection: Negative for abdominal distention Back/Spine Back/Spine Narrative: Patient gets up and walks without any indication of discomfort Extremity normal to inspection Extremity Narrative: Normal gait. Neuro Neuro Narrative: Normal gait and balance. Sensorium / Orientation: alert Psych Attitude: agitated Skin Skin Narrative: No visible skin lesions. MDM MDM MDM Narrative Medical decision making narrative: I went back and talk with the patient again. She is combative. She cannot put together an organized thought or sentence. She appears to be manic. I think she is not just having panic attacks. I think she is having acute brittani and psychosis. She has had multiple visits. She has disorganized thought. At this point, I think we need to medicate her and do an evaluation. I do hear that this is a common thing that she does. I have no historical indication that this would be due to acute medical or infectious problem. But she will be evaluated. As long as medically cleared she will be seen by crisis. Patient was refusing evaluation. Police were called because she has a history of getting extremely combative and physical. We had ordered Geodon and Ativan as she has had this before and needed significant sedation. However, she did let us draw blood at this time. She is giving us a urine sample. I will give her oral Ativan at this time. CBC shows no acute process. Electrolytes showed no major issue other than mildly low potassium. She is not having symptoms of this and this is not the cause of her problem. We will replace this orally. Diet should help also. Ethanol was negative. Patient tox screen was positive for multiple compounds. These could contribute to the behavior were seen. Also, her psychiatric illness and psychosis could contribute to her doing multiple drugs. is neg ative we are pending crisis evaluation. Patient is medically cleared for psychiatric evaluation and admission if needed. Lab Data Labs: Laboratory Results - last 24 hr 02/23/22 02/23/22 02/23/22 06:02 06:02 06:02 WBC 10.6 RBC 4.12 L Hgb 12.2 Hct 37.1 MCV 90.0 MCH 29.6 MCHC 32.9 RDW Std Deviation 42.0 RDW Coeff of Fabio 12.8 Plt Count 418 MPV 9.2 Immature Gran % (Auto) 0.400 Neut % (Auto) 63.3 Lymph % (Auto) 24.9 Hudson % (Auto) 11.1 H Eos % (Auto) 0.2 Baso % (Auto) 0.1 Absolute Neuts (auto) 6.7 Absolute Lymphs (auto) 2.65 Nucleated RBC % 0 Sodium 141 Potassium 3.1 L Chloride 106 Carbon Dioxide 26.0 Anion Gap 9 BUN 12 Creatinine 0.73 Estim Creat Clear Calc 67.70 Est GFR (MDRD) Af Amer 108 Est GFR (MDRD) Non-Af 90 BUN/Creatinine Ratio 16.3 Glucose 98 Calcium 9.2 Serum , Qual Urine Opiates Screen Urine Methadone Screen Ur Barbiturates Screen Ur Phencyclidine Scrn Ur Amphetamines Screen MDMA (Ecstasy) Screen U Benzodiazepines Scrn Urine Cocaine Screen U Cannabinoids Screen Ur Drug Screen Comment Ethyl Alcohol < 3.0 02/23/22 02/23/22 06:02 06:05 WBC RBC Hgb Hct MCV MCH MCHC RDW Std Deviation RDW Coeff of Fabio Plt Count MPV Immature Gran % (Auto) Neut % (Auto) Lymph % (Auto) Hudson % (Auto) Eos % (Auto) Baso % (Auto) Absolute Neuts (auto) Absolute Lymphs (auto) Nucleated RBC % Sodium Potassium Chloride Carbon Dioxide Anion Gap BUN Creatinine Estim Creat Clear Calc Est GFR (MDRD) Af Amer Est GFR (MDRD) Non-Af BUN/Creatinine Ratio Glucose Calcium Serum , Qual NEGATIVE Urine Opiates Screen NEGATIVE Urine Methadone Screen NEGATIVE Ur Barbiturates Screen NEGATIVE Ur Phencyclidine Scrn NEGATIVE Ur Amphetamines Screen POSITIVE H MDMA (Ecstasy) Screen POSITIVE H U Benzodiazepines Scrn NEGATIVE Urine Cocaine Screen POSITIVE H U Cannabinoids Screen POSITIVE H Ur Drug Screen Comment Ethyl Alcohol Discharge Plan Triage Chief Complaint: Anxiety ED Provider: Facundo Hoyt Dx/Rx/DC Orders Clinical Impression: Acute psychosis, Anxiety, Brittani Prescriptions: No Action sertraline 100 mg tablet 100 mg PO DAILY aripiprazole 10 mg tablet 140 mg PO DAILY albuterol sulfate [ProAir HFA] 90 mcg/actuation HFA aerosol inhaler 1 inh inhalation Q6H PRN (Reason: shortness of breath or wheezing) Qty: 6.7 0RF Primary Care Provider: Care Physician,No Primary Referrals: Care Physician,No Primary [Primary Care Provider] - Disposition Disposition: Psychiatric Hospital or Unit
--- NOTE | 2022-02-23 05:34 | ED.RN ---
patient pressed call light and then came out to charge nurse and asked to talk to her nurse. She then walked into the bathroom as this nurse was walking another patient back to her room for urine sample collection. This nurse went into talk to the patient who is now irritated and states, she wants us to know the fucking board needs work, the fucking clock is stupid, and her buttons don't work on her bed, and when she pressed the call light they said they would be in but then when she went out they were talking to other patients and not helping her.
[2022-02-23 06:11] LABS: Absolute Lymphocyte Count 2.65 X10^3/uL (0.83-4.51); Absolute Neutrophil Count 6.7 X10^3/uL (2.0-7.7); Basophil# 0.01 X10^3/uL; Basophil% 0.1 % (0-1); Eosinophil# 0.02 X10^3/uL; Eosinophils% 0.2 % (0-5); Hematocrit 37.1 % (37-47); Hemoglobin 12.2 g/dL (12.0-15.0); Lymphocyte # 2.65 X10^3/ul (0.83-4.51); Lymphocyte % 24.9 % (19-41); Mean Corp Hgb Conc 32.9 g/dL (32-36); Mean Corpuscular Hgb 29.6 pg (27.0-32.0); Mean Platelet Vol. 9.2 fl (6.2-12.0); Monocyte# 1.18 X10^3/uL; Monocyte% 11.1 % (0-10); NRBC Flagged by Analyzer 0 % (0-5); Neutrophil # 6.73 X10^3/uL (2.7-7.7); Neutrophil % 63.3 % (47-70); Platelet Count 418 K/mm3 (150-450); RBC Distribution Width CV 12.8 % (11.6-14.6); Red Blood Count 4.12 M/mm3 (4.2-5.4); White Blood Count 10.6 K/mm3 (4.4-11.0)
[2022-02-23] MEDS: LORazepam 1 MG Tablet 2 MG PO (06:12)
[2022-02-23 06:28] LABS: Internal QC Validated? YES +Cl - CLEAR BKGD; Pregnancy, Serum, hCG Quali. NEGATIVE Negative
[2022-02-23 06:31] LABS: Alcohol, Blood (Medical)-Serum < 3.0 mg/dL
[2022-02-23 06:34] LABS: Anion Gap 9 (5-15); BUN 12 mg/dL (7-18); BUN/Creat Ratio 16.3 RATIO (10-20); Calcium,Total 9.2 mg/dL (8.5-10.1); Chloride 106 mmol/L (98-107); Creatinine, Serum 0.73 mg/dL (0.55-1.02); EST Glomerular Filtration Rate 90 mL/min (>60); Est Glom Filt Rate - Afr Amer 108 mL/min (>60); Glucose 98 mg/dL (74-106); Potassium 3.1 mmol/L (3.5-5.1); Sodium Level 141 mmol/L (136-145)
[2022-02-23 06:35] LABS: Amphetamine Urine VISTA POSITIVE (<1000 ng/mL); Barbiturate Urine VISTA NEGATIVE (< 200 ng/mL); Benzodiazepine Urine VISTA NEGATIVE (< 200 ng/mL); Cocaine Urine VISTA POSITIVE (< 300 ng/mL); Ecstacy Urine VISTA POSITIVE (< 500 ng/mL); Methadone Urine VISTA NEGATIVE (< 300 ng/mL); PCP Urine VISTA NEGATIVE (< 25 ng/mL); THC Urine VISTA POSITIVE (< 50 ng/mL); Vista UDS pH Range 5
[2022-02-23 07:27] VITALS: RESP 14
--- NOTE | 2022-02-23 07:30 | ED.RN ---
pt is sitting in bed, in the dark, calmly watching tv.
[2022-02-23 08:20] VITALS: BP 129/88; PULSE 73; RESP 15; O2SAT 97
== END 2022-02-23 08:21 | disposition home or self-care (01) ==
PROVIDERS: Emergency Provider Emergency Medicine; Visit Provider Emergency Medicine
DX: F23 Brief psychotic disorder (principal); F31.9 Bipolar disorder, unspecified; F41.9 Anxiety disorder, unspecified; F17.210 Nicotine dependence, cigarettes, uncomplicated; Z79.899 Other long term (current) drug therapy
CPT/HCPCS: 80048; 80307; 82077; 84703; 85025; 99283; J3486

== ENCOUNTER 2022-02-27 06:35 | Emergency (ER) | payer MEDICARE, MEDICAID, SELFPAY ==
[2022-02-27 06:35] VITALS: BP 137/92; PULSE 105; RESP 20; TEMP 36.6; O2SAT 96; BMI 20.5
--- NOTE | 2022-02-27 07:07 | EX.ED.VIS.PS ---
HPI HPI - Psych History of Present Illness Chief Complaint: Anxiety Detail of Chief Complaint: Anxiety Informant: patient Narrative Narrative: Patient with history of chronic anxiety. Patient states that she ran out of her Ativan. Patient denies feeling suicidal or homicidal. She denies hallucinations. Patient states that just life is causing her to feel anxious. Patient states she was here recently and had Ativan and was given prescription for a few but ran out. She denies other illnesses. Patient does have a psychiatrist that she sees and has been compliant with her medications. Prior similar symptoms: Yes PFSH PFSH Medical History Anxiety Bipolar 1 disorder Psychosis Home Medications aripiprazole 10 mg tablet 10 mg PO DAILY 05/22/21 [History Last Taken Unknown] sertraline 100 mg tablet 100 mg PO DAILY 05/22/21 [History Last Taken Unknown] albuterol sulfate 90 mcg/actuation aerosol inhaler (ProAir HFA) 1 inh inhalation Q6H PRN shortness of breath or wheezing #6.7 grams 02/20/22 [Rx Last Taken Unknown] lorazepam 1 mg tablet (Ativan) 1 mg PO DAILY PRN anxiety #5 tabs 02/23/22 [Rx Last Taken Unknown] lorazepam 1 mg tablet (Ativan) 1 mg PO TID PRN anxiety #10 tabs 02/27/22 [Rx Last Taken Unknown] Allergy/AdvReac Type Severity Reaction Status Date / Time No Known Allergies Allergy Verified 02/27/22 06:37 Social History household members: none Smoking Status: Current every day smoker tobacco type: cigarettes substance use type: unknown ROS ROS ED Review of Systems ROS Unobtainable: other Constitutional Constitutional ED: Reports lethargy; Denies chills, fever(s), sweats or weight loss Eyes Eyes: Denies blurry vision, change in vision or diplopia ENT ENT ED: Denies rhinorrhea or sore throat Cardiovascular Cardiovascular: Reports racing heartbeat; Denies chest pain, orthopnea or palpitations Respiratory/Chest Respiratory/Chest: Denies cough, dyspnea, dyspnea on exertion, orthopnea or sputum Gastrointestinal Gastrointestinal: Denies abdominal pain, diarrhea, nausea or vomiting Genitourinary Genitourinary ED: Denies dysuria, hematuria or urinary frequency Musculoskeletal Musculoskeletal: Denies arthralgias, back pain, myalgias or neck pain Integumentary Denies abscess, Abrasions or rash Neurologic Neurologic: Denies headache(s) or weakness Psychiatric Psychiatric: Reports anxiety; Denies depression or suicidal thoughts Endocrine Endocrinology: Denies polydipsia, polyphagia or polyuria Hematologic/Lymphatic Hematologic/Lymphatic: Denies easy bleeding, easy bruising or lymphadenopathy Allergic/Immunologic Allergic/Immunologic ED: Denies mouth swelling, tongue swelling or urticaria EXAM Physical Exam Const Vital Signs: 02/27/22 06:35 Temperature 97.8 F Temperature Source Temporal Pulse Rate 105 H Respiratory Rate 20 H Blood Pressure 137/92 H Blood Pressure Mean 107 Pulse Ox 96 Oxygen Delivery Method Room Air Positive well nourished and well developed General Appearance ED: well developed and NAD HEENT Reports TM's clear and moist mucous membranes normocephalic and atraumatic; Negative for trauma or tenderness Tympanic Membrane ED: Yes TM's clear Eyes PERRL and EOMs intact bilaterally General Eye ED: Negative for pale conjunctiva or scleral icterus Neck no lymphadenopathy, supple and no JVD General: Negative for tenderness Chest Wall inspection of chest normal and palpation of chest normal Chest: Negative for tenderness Resp normal respiratory effort and clear to auscultation bilaterally Effort and Inspection: Negative for respiratory distress or pain with movement Auscultation: Negative for rhonchi, wheezes or diminished lung sounds Cardio regular rate, regular rhythm, S1 normal heart sound, S2 normal heart sound and no murmurs Peripheral Pulses: pulses 2+ throughout GI normal to inspection, nondistended, normoactive bowel sounds, soft to palpation, non-tender, non-distended and no masses Back/Spine no CVA tenderness and no thoracic nor lumbar tenderness Extremity normal to inspection General Extremety ED: Negative for edema General Extremity: Negative for edema Neuro oriented x3, CN's II-XII intact bilaterally, no sensory deficits noted and gait normal Sensorium / Orientation: awake, alert, oriented to person, oriented to place and oriented to time Motor Exam: strength 5/5 throughout and strength abnormal Psych mental status grossly normal Skin no rashes or lesions noted and no wounds MDM MDM MDM Narrative Medical decision making narrative: Patient presents with anxiety. She is well-known to this emergency department as she has been here multiple times for same complaint. Patient will be given a milligram of Ativan. Patient not suicidal or homicidal. She does not seem acutely psychotic. Patient does not want to speak with a social work program coordinator or crisis. She is advised to follow-up with her psychiatrist. She will be given a prescription for few Ativan. Discharge Plan Triage Chief Complaint: Anxiety ED Provider: Henny Garcia Dx/Rx/DC Orders Clinical Impression: Anxiety Instructions: ED Panic Attack Prescriptions: New lorazepam [Ativan] 1 mg tablet 1 mg PO TID PRN (Reason: anxiety) Qty: 10 0RF No Action sertraline 100 mg tablet 100 mg PO DAILY aripiprazole 10 mg tablet 10 mg PO DAILY albuterol sulfate [ProAir HFA] 90 mcg/actuation HFA aerosol inhaler 1 inh inhalation Q6H PRN (Reason: shortness of breath or wheezing) Qty: 6.7 0RF lorazepam [Ativan] 1 mg tablet 1 mg PO DAILY PRN (Reason: anxiety) Qty: 5 0RF Primary Care Provider: Care Physician,No Primary Referrals: Care Physician,No Primary [Primary Care Provider] - Activity Restrictions/Additional Instructions: See your psychiatrist within next 3 to 5 days
[2022-02-27] MEDS: LORazepam 1 MG Tablet PO (07:22)
--- NOTE | 2022-02-27 07:23 | ED.RN ---
THIS RN AT BEDSIDE TO GIVE PT MEDICATION. PT REPORTS TO THIS RN THAT SHE NEEDS 6$ POWELL TO BUY CIGARETTES. THIS RN REPORTS TO PATIENT THAT SHE DOES NOT HAVE ANY MONEY. PT REPORTS, YES YOU DO FUCK YOU. PT MEDICATED PER ORDERS ON AUG. PT SWALLOWS MEDICATION BUT REFUSES WATER OFFERED TO PT. PT GRABS HER PURSE AND STORMS OUT OF ED, CURSING FUCK YOU TO STAFF ON THE WAY.
== END 2022-02-27 07:23 | disposition home or self-care (01) ==
PROVIDERS: Emergency Provider Emergency Medicine; Visit Provider Emergency Medicine
DX: F41.9 Anxiety disorder, unspecified (principal); F31.9 Bipolar disorder, unspecified; F17.210 Nicotine dependence, cigarettes, uncomplicated; Z79.899 Other long term (current) drug therapy
CPT/HCPCS: 99283

== ENCOUNTER 2022-03-01 10:09 | Emergency (ER) | payer MEDICARE, MEDICAID, SELFPAY ==
[2022-03-01 10:09] VITALS: BP 144/104; PULSE 96; RESP 18; TEMP 36.4; O2SAT 100; BMI 24.9
--- NOTE | 2022-03-01 10:30 | EX.ED.VIS.PS ---
HPI HPI - Psych History of Present Illness Chief Complaint: Anxiety Informant: patient Onset/Context/Timing Onset: Month(s) Timing: Continuous Current Severity: Mild Maximum Severity: Moderate Associated Symptoms Associated Symptoms - Psych: Negative for Suicidal Thoughts, Confusion, Paranoia, Visual Hallucinations or Auditory Hallucinations Narrative Narrative: 40-year-old female history of bipolar and anxiety. History of drug abuse including methamphetamines and cocaine. States that she has chronic anxiety and anxiety attacks. She is seen by the counseling center but they would not prescribe her Ativan because of her drug abuse history. She was seen here about 6 days ago and was given a prescription for 10 Ativan. She is requesting more today. When she walked in triage she was verbally abusive to the triage nurse and using foul language. Prior similar symptoms: Yes Recent Illness/Hospitalization: No PFSH PFSH Medical History Anxiety Bipolar 1 disorder Psychosis Home Medications aripiprazole 10 mg tablet 10 mg PO DAILY 05/22/21 [History Last Taken Unknown] sertraline 100 mg tablet 100 mg PO DAILY 05/22/21 [History Last Taken Unknown] albuterol sulfate 90 mcg/actuation aerosol inhaler (ProAir HFA) 1 inh inhalation Q6H PRN shortness of breath or wheezing #6.7 grams 02/20/22 [Rx Last Taken Unknown] lorazepam 1 mg tablet (Ativan) 1 mg PO DAILY PRN anxiety #5 tabs 02/23/22 [Rx Last Taken Unknown] lorazepam 1 mg tablet (Ativan) 1 mg PO TID PRN anxiety #10 tabs 02/27/22 [Rx Last Taken Unknown] Allergy/AdvReac Type Severity Reaction Status Date / Time No Known Allergies Allergy Verified 03/01/22 10:11 Social History household members: none Smoking Status: Current every day smoker tobacco type: cigarettes substance use type: unknown ROS ROS ED ROS Narrative Denies recent illness. Anxiety. Review of Systems ROS Unobtainable: Denies due to encephalopathy Constitutional Constitutional ED: Denies chills or fever(s) Eyes Eyes: Denies blurry vision ENT ENT ED: Denies ear pain Cardiovascular Cardiovascular: Denies chest pain Respiratory/Chest Respiratory/Chest: Denies cough or dyspnea Gastrointestinal Gastrointestinal: Denies abdominal pain Genitourinary Genitourinary ED: Denies dysuria or hematuria Musculoskeletal Musculoskeletal: Denies arthralgias Integumentary Denies abscess Neurologic Neurologic: Denies headache(s) Psychiatric Psychiatric: Reports anxiety Endocrine Endocrinology: Denies polydipsia Hematologic/Lymphatic Hematologic/Lymphatic: Denies easy bleeding Allergic/Immunologic Allergic/Immunologic ED: Denies mouth swelling or tongue swelling EXAM Physical Exam Narrative Exam Narrative: [id number] female vital signs are stable and afebrile. EENT exam unremarkable. Neck nontender. Lungs clear to auscultation. Heart regular rhythm no murmur. Abdomen soft nontender. Patient is moving all 4 extremities. Nontender no edema. Neurologically she is awake and alert. She is anxious. Otherwise she is in no distress. Const Vital Signs: 03/01/22 10:09 Temperature 97.6 F L Temperature Source Temporal Pulse Rate 96 Respiratory Rate 18 Blood Pressure 144/104 H Blood Pressure Mean 117 Pulse Ox 100 Oxygen Delivery Method Room Air Positive well nourished and well developed; Negative for obese, cachectic, contractures or unkempt General Appearance ED: well developed and NAD; Negative for unkempt, cachectic, contractures or pallor Nutritional Appearance: Negative for cachectic or obese HEENT Reports moist mucous membranes normocephalic and atraumatic; Negative for trauma or tenderness Eyes PERRL and EOMs intact bilaterally General Eye ED: Negative for pale conjunctiva or scleral icterus Neck no lymphadenopathy, supple and no JVD General: Negative for tenderness Resp normal respiratory effort and clear to auscultation bilaterally Effort and Inspection: Negative for retractions Auscultation: Negative for rales, rhonchi or wheezes Cardio S1 normal heart sound, S2 normal heart sound and no murmurs Palpation: Negative for other Rate: regular rate Rhythm: regular rhythm GI non-tender, non-distended and no masses Inspection: Negative for abdominal distention Auscultation: normoactive bowel sounds Palpation: soft; Negative for tender or guarding Back/Spine no CVA tenderness General Back: Negative for CVA tenderness Cervical Spine: Negative for cervical spine tenderness Thoracic Spine / Upper Back: Negative for thoracic spinal tenderness Lumbar Spine / Lower Back: Negative for lumbar spinal tenderness Neuro oriented x3, CN's II-XII intact bilaterally and no sensory deficits noted Sensorium / Orientation: alert, oriented to person, oriented to place and oriented to time; Negative for orientation impaired, confused, lethargic or stuporous Motor Exam: strength 5/5 throughout Psych mental status grossly normal, thought process normal, cooperative, speech normal, activity/motor behavior normal, denies hallucinations, denies homicidal ideation and denies suicidal ideation; Negative for affect normal Psych Narrative: Very anxious. Appearance: grossly normal, appropriate and well kempt; Negative for unkempt Attitude: No calm, engaged, No paranoid, No withdrawn, No bizarre, No uncooperative, No evasive, No guarded, No belligerent, No agitated, No aggressive, No hostile and other Anxious Activity / Motor Behavior: appropriate eye contact Speech: normal speech Mood & Affect: anxious Thought Process: normal thought process Thought Content: normal thought content Attention / Concentration: attention grossly intact Memory / Cognition: memory grossly intact Insight: insight good Skin General Skin Exam: Negative for jaundice or pallor Lesions: no lesions Rashes: no rashes Trauma: Negative for abrasion MDM MDM MDM Narrative Medical decision making narrative: 46-year-old female well-known to this emergency department. History of drug abuse. Requesting Ativan. She was just given a prescription 6 days ago for 10. I do not think that would be a good idea to keep prescribing this to this particular patient. She can follow-up with counseling center they have been unwilling to write her for Ativan due to her drug abuse history. She denies being suicidal or homicidal. She will be discharged to home. Discharge Plan Triage Chief Complaint: Anxiety ED Provider: Aleksandr Christina Dx/Rx/DC Orders Clinical Impression: Bipolar disorder, Anxiety Instructions: ED Anxiety Reaction, ED Panic Attack Prescriptions: No Action sertraline 100 mg tablet 100 mg PO DAILY aripiprazole 10 mg tablet 10 mg PO DAILY albuterol sulfate [ProAir HFA] 90 mcg/actuation HFA aerosol inhaler 1 inh inhalation Q6H PRN (Reason: shortness of breath or wheezing) Qty: 6.7 0RF lorazepam [Ativan] 1 mg tablet 1 mg PO DAILY PRN (Reason: anxiety) Qty: 5 0RF lorazepam [Ativan] 1 mg tablet 1 mg PO TID PRN (Reason: anxiety) Qty: 10 0RF Primary Care Provider: Care Physician,No Primary Referrals: Counseling,Center [Group of Physicians] - As soon as possible Care Physician,No Primary [Primary Care Provider] - Activity Restrictions/Additional Instructions: Call and follow-up with counseling center or therapies involving your anxiety. Disposition Disposition: Home, Self Care
--- NOTE | 2022-03-01 10:41 | ED.RN ---
PT WAS GIVEN HER DC PAPERS, PT ANGERLY GOT UP REFUSING TO COMMUNICATE, AMBULATED FROM HER ROOM, AGGRESSIVELY THREW HER DC PAPERS BY THE NURSES STATION AND AMBULATED FROM ED.
== END 2022-03-01 10:44 | disposition home or self-care (01) ==
PROVIDERS: Emergency Provider Emergency Medicine; Visit Provider Emergency Medicine
DX: F31.9 Bipolar disorder, unspecified (principal); F41.9 Anxiety disorder, unspecified; F17.210 Nicotine dependence, cigarettes, uncomplicated; Z87.898 Personal history of other specified conditions; Z79.899 Other long term (current) drug therapy
CPT/HCPCS: 99282

== ENCOUNTER 2022-03-02 11:37 | Emergency (ER) | payer MEDICARE, MEDICAID, SELFPAY ==
[2022-03-02 11:38] VITALS: BP 130/87; PULSE 112; RESP 18; TEMP 36.6; O2SAT 98; BMI 17.2
--- NOTE | 2022-03-02 12:06 | EDS_ITS ---
HPI History of Present Illness Chief Complaint: Anxiety Informant: patient Narrative Narrative: 46-year-old female with multiple visits in the past week to the emergency department for Ativan presenting with a panic attack per her. She states she does not want talk about it. She states that she needs Ativan and if she does not get it then she wants me to leave the room. I informed her that I be happy to get her some Vistaril but has it discussed at our previous encounter I do not think the patient would benefit from Ativan as much as it would hurt her. She has addictions. Her own psychiatrist will not prescribe her Ativan which I am agreement with. Patient has received 2 prescriptions this week for Ativan. The first 1 on 02/23 for 5 tablets and the second on 03/02 for 10. Patient has once again become verbally abusive and is now screaming at staff. [facility] Medical History Anxiety Bipolar 1 disorder Psychosis Home Medications aripiprazole 10 mg tablet 10 mg PO DAILY 05/22/21 [History Last Taken Unknown] sertraline 100 mg tablet 100 mg PO DAILY 05/22/21 [History Last Taken Unknown] albuterol sulfate 90 mcg/actuation aerosol inhaler (ProAir HFA) 1 inh inhalation Q6H PRN shortness of breath or wheezing #6.7 grams 02/20/22 [Rx Last Taken Unknown] lorazepam 1 mg tablet (Ativan) 1 mg PO DAILY PRN anxiety #5 tabs 02/23/22 [Rx Last Taken Unknown] lorazepam 1 mg tablet (Ativan) 1 mg PO TID PRN anxiety #10 tabs 02/27/22 [Rx Last Taken Unknown] Allergy/AdvReac Type Severity Reaction Status Date / Time No Known Allergies Allergy Verified 03/01/22 10:11 Social History household members: none Smoking Status: Current every day smoker tobacco type: cigarettes substance use type: unknown ROS ROS ED Review of Systems ROS Unobtainable: due to mental condition EXAM Physical Exam Const Vital Signs: 03/02/22 11:38 Temperature 97.8 F Temperature Source Temporal Pulse Rate 112 H Respiratory Rate 18 Blood Pressure 130/87 H Blood Pressure Mean 101 Pulse Ox 98 Oxygen Delivery Method Room Air Positive well nourished, well developed and unkempt General Appearance ED: unkempt and well developed HEENT Reports moist mucous membranes Eyes PERRL and EOMs intact bilaterally Neck no JVD Resp normal respiratory effort GI Inspection: Negative for abdominal distention Neuro oriented x3 Sensorium / Orientation: alert Motor Exam: strength 5/5 throughout Psych Psych Narrative: Angry verbally abusive Appearance: unkempt MDM MDM MDM Narrative Medical decision making narrative: I will refer the patient to case management so we can develop a care plan for her. The patient clearly has mental illness. She does not meet inpatient criteria today. She is not suicidal or homicidal. She started to refuse to leave the emergency department and the police were called. Eventually she relented and left the emergency department. This is a very typical patient encounter for her as she is usually very verbally aggressive screaming and in fact patients on the other side of the emergency department could hear her screaming today. I would venture to say that perhaps we even need to discuss a no trespass with her. Discharge Plan Triage Chief Complaint: Anxiety ED Provider: Frankie Viera Dx/Rx/DC Orders Clinical Impression: Malingering, Schizoaffective disorder Prescriptions: No Action sertraline 100 mg tablet 100 mg PO DAILY aripiprazole 10 mg tablet 10 mg PO DAILY albuterol sulfate [ProAir HFA] 90 mcg/actuation HFA aerosol inhaler 1 inh inhalation Q6H PRN (Reason: shortness of breath or wheezing) Qty: 6.7 0RF lorazepam [Ativan] 1 mg tablet 1 mg PO DAILY PRN (Reason: anxiety) Qty: 5 0RF lorazepam [Ativan] 1 mg tablet 1 mg PO TID PRN (Reason: anxiety) Qty: 10 0RF Primary Care Provider: Care Physician,No Primary Referrals: Care Physician,No Primary [Primary Care Provider] - Disposition Disposition: Home, Self Care Discharge Date/Time: 03/02/22 12:04
--- NOTE | 2022-03-02 12:21 | CM.ED ---
SW Note Sw went to ED room as per tracker patient has no PCP. Patient was not given ativan so she was yelling and screaming. fire engineer Wilma attempted to give PCP list to patient but she refused. No further SW needs at this time. Audrey AG
== END 2022-03-02 12:04 | disposition home or self-care (01) ==
LOC: ED 11:48
PROVIDERS: Emergency Provider Emergency Medicine; Visit Provider Emergency Medicine
DX: F25.9 Schizoaffective disorder, unspecified (principal); F31.9 Bipolar disorder, unspecified; F17.210 Nicotine dependence, cigarettes, uncomplicated; F41.0 Panic disorder [episodic paroxysmal anxiety]; Z79.899 Other long term (current) drug therapy
CPT/HCPCS: 99282

== ENCOUNTER 2022-06-23 22:41 | Emergency (ER) | payer MEDICARE, MEDICAID, SELFPAY ==
[2022-06-23 22:41] VITALS: BP 148/90; PULSE 78; RESP 18; TEMP 36.7; O2SAT 98; BMI 19.5
--- NOTE | 2022-06-23 22:54 | ED.RN ---
Pt. walked out after Dr. Herrera stated he would not be giving her any ativan.
--- NOTE | 2022-06-23 22:55 | EDS_ITS ---
HPI HPI - Psych History of Present Illness Chief Complaint: Anxiety Narrative Narrative: 47-year-old female past medical history of anxiety, presents with request for Ativan. She states that she used to see Dr. Jackson at the counseling center, but has not gone there in a while because she feels like her methods are ineffective. Reportedly, she is well-known to the emergency department and has become verbally abusive with staff in the past. Additionally, in review of her EMR, she has had history of substance abuse. She is here tonight because she wants an Ativan 2 mg tablet to take home with her, because she has not had Ativan in quite some time. She denies any suicidal ideation or homicidal ideation. [facility] Medical History Anxiety Bipolar 1 disorder Psychosis Home Medications aripiprazole 10 mg tablet 10 mg PO DAILY 05/22/21 [History Last Taken Unknown] sertraline 100 mg tablet 100 mg PO DAILY 05/22/21 [History Last Taken Unknown] albuterol sulfate 90 mcg/actuation aerosol inhaler (ProAir HFA) 1 inh inhalation Q6H PRN shortness of breath or wheezing #6.7 grams 02/20/22 [Rx Last Taken Unknown] lorazepam 1 mg tablet (Ativan) 1 mg PO DAILY PRN anxiety #5 tabs 02/23/22 [Rx Last Taken Unknown] lorazepam 1 mg tablet (Ativan) 1 mg PO TID PRN anxiety #10 tabs 02/27/22 [Rx Last Taken Unknown] Allergy/AdvReac Type Severity Reaction Status Date / Time No Known Allergies Allergy Verified 06/23/22 22:43 Social History household members: none Smoking Status: Current every day smoker tobacco type: cigarettes substance use type: unknown ROS ROS ED ROS Narrative Constitutional: No fever, no chills. HEENT: No sore throat. No neck pain. No loss of vision. No rhinorrhea. Cardiovascular: No chest pain. Occasional palpitations. My blood boils. No pedal edema. Respiratory: No cough, no shortness of breath. Abdominal: No abdominal pain. No nausea. No vomiting. Genitourinary: No dysuria. No hematuria. Musculoskeletal: No myalgias. No arthralgias. Neurologic: No headaches. No dizziness. No lightheadedness. Skin: No rash. No change in color. Psychiatric: No depression. Positive anxiety. Anger issues. No suicidal ideation. No homicidal ideation. EXAM Physical Exam Narrative Exam Narrative: Afebrile. Vital signs noted. HEENT: Normocephalic. Atraumatic. PERRL, EOMI. Neck soft and supple. No point tenderness or step off. Cardiovascular: Regular rate and rhythm. No murmurs, rubs, or gallops appreciated. Respiratory: No tachypnea. Lungs clear to auscultation bilaterally. Gastrointestinal: Abdomen soft, nontender, with normoactive bowel sounds. No rebound or guarding. Neurological: Awake. Alert. Nonfocal, nonlateralizing. Skin: No rash. Normal color. No pallor. Musculoskeletal: No pedal edema. Full range of motion extremities. Psychiatric: No suicidal ideation, no homicidal ideation, no active hallucinations or internal stimulation. Const Vital Signs: 06/23/22 22:41 Temperature 98.0 F Temperature Source Temporal Pulse Rate 78 Respiratory Rate 18 Blood Pressure 148/90 H Blood Pressure Mean 109 Pulse Ox 98 Oxygen Delivery Method Room Air MDM MDM MDM Narrative Medical decision making narrative: I reviewed the patient's ED provider notes in the EMR. In February of last year, she had been written for Ativan 10 tablets, then frequently return to the emergency department requesting more. She becomes verbally abusive towards staff. There was talk of obtaining a care plan for her. Once, a physician offered to write her for Vistaril and she became very angry but then would not leave the emergency department, but eventually relented after police were called. She has a history of substance abuse, so I do not feel that a prescription for benzodiazepines is indicated because there is high potential for abuse. Initially, the patient was pleasant and allowed me to perform the history and physical examination. She asked out right if she could have Ativan 2 mg tablet and take it home with her. I told her that we cannot just give out benzodiazepines, and she started to become angry. She stated if you're gonna fucking say no, then I'm going to walk out of here. I told her that I would not be giving her an Ativan tablet, she became angry, and stormed out of the emergency department. She left prior to formal discharge. She was in stable condition. Discharge Plan Triage Chief Complaint: Anxiety ED Provider: Jose Enrique Herrera Dx/Rx/DC Orders Clinical Impression: Anxiety, History of substance abuse Instructions: ED Anxiety Reaction Prescriptions: No Action sertraline 100 mg tablet 100 mg PO DAILY aripiprazole 10 mg tablet 10 mg PO DAILY albuterol sulfate [ProAir HFA] 90 mcg/actuation HFA aerosol inhaler 1 inh inhalation Q6H PRN (Reason: shortness of breath or wheezing) Qty: 6.7 0RF lorazepam [Ativan] 1 mg tablet 1 mg PO DAILY PRN (Reason: anxiety) Qty: 5 0RF lorazepam [Ativan] 1 mg tablet 1 mg PO TID PRN (Reason: anxiety) Qty: 10 0RF Primary Care Provider: Care Physician,No Primary Referrals: Care Physician,No Primary [Primary Care Provider] - Disposition Disposition: Home, Self Care
== END 2022-06-23 23:03 | disposition home or self-care (01) ==
LOC: ED 23:03
PROVIDERS: Emergency Provider Emergency Medicine; Visit Provider Emergency Medicine
DX: F41.9 Anxiety disorder, unspecified (principal); F17.210 Nicotine dependence, cigarettes, uncomplicated; Z87.898 Personal history of other specified conditions
CPT/HCPCS: 99283

== ENCOUNTER 2022-08-05 09:42 | Emergency (ER) | payer MEDICARE, MEDICAID, SELFPAY ==
[2022-08-05 09:44] VITALS: BP 94/75; PULSE 101; RESP 24; TEMP 36.6; O2SAT 99; BMI 40.4
--- NOTE | 2022-08-05 09:59 | EX.ED.VIS.PS ---
HPI HPI - Psych History of Present Illness Chief Complaint: Mental Health Informant: police/advertising designer Narrative Narrative: I really cannot get any good history from the patient. She is combative and yelling. She has flight of ideas. She is not really cooperative. She does seem to be internally stimulated. I talk with the police who actually know this patient pretty well. They have not seen her this bad. They were called because she has been having erratic behavior. Neighbors have been noticing this for several days. It is unknown if she is taking her meds. She made comments about suicide and homicide. But she has flight of ideas and is making many comments about many things. She is wondering what organ to do and then telling us we cannot do anything. There is no consistency in her statements. I cannot get a good review of systems because of her inability to give a good history. I have no history of trauma or injury. She did walk in with the police. I watched her walk down the bravo. [facility] Medical History Anxiety Bipolar 1 disorder Psychosis Home Medications aripiprazole 10 mg tablet 10 mg PO DAILY 05/22/21 [History Last Taken Unknown] sertraline 100 mg tablet 100 mg PO DAILY 05/22/21 [History Last Taken Unknown] albuterol sulfate 90 mcg/actuation aerosol inhaler (ProAir HFA) 1 inh inhalation Q6H PRN shortness of breath or wheezing #6.7 grams 02/20/22 [Rx Last Taken Unknown] lorazepam 1 mg tablet (Ativan) 1 mg PO DAILY PRN anxiety #5 tabs 02/23/22 [Rx Last Taken Unknown] lorazepam 1 mg tablet (Ativan) 1 mg PO TID PRN anxiety #10 tabs 02/27/22 [Rx Last Taken Unknown] Allergy/AdvReac Type Severity Reaction Status Date / Time No Known Allergies Allergy Verified 06/23/22 22:43 Social History household members: none Smoking Status: Current every day smoker tobacco type: cigarettes substance use type: unknown ROS ROS ED ROS Narrative Unable to get any significant review of systems other than what is in the history of present illness. Patient is yelling and not cooperative. She seems very internally stimulated and having acute psychosis. She does not seem comfortable. For this reason she will be medicated. It looks like we will likely have to restrain her for short period of time to medicate her for the safety of her and others. EXAM Physical Exam Narrative Exam Narrative: Patient walked back from entrance to the room. Stable gait. She is talking occasionally yelling occasionally talking to people and other times just talking. HEENT shows no sign of trauma. Mouth looks a little dry. Neck is free range of motion Breathing looks easy and unlabored but I cannot get close enough to the patient to get a listen. Heart was borderline tachycardic by triage vitals but she does not want me to listen. Abdomen is thin not protuberant but again I cannot directly examine this at this time. Extremities show no obvious trauma. She moves arms and legs without any difficulty or signs of pain. Neurologically she has stable gait and balance. Coordinated motion with arms and legs. Speech is clear but somewhat erratic and tangential. Psychiatric: Patient is agitated upset yelling flight of ideas. Const Vital Signs: 08/05/22 09:44 08/05/22 12:01 Temperature 97.9 F 96.9 F L Temperature Source Temporal Temporal Pulse Rate 101 H 63 Respiratory Rate 24 H 16 Blood Pressure 94/75 102/72 Blood Pressure Mean 81 82 Pulse Ox 99 100 Oxygen Delivery Method Room Air Room Air MDM MDM MDM Narrative Medical decision making narrative: Patient CBC shows normal white count. She has mild anemia. Platelets are normal. Electrolytes show low potassium which she has had before. This should self correct with relaxation and diet. Is minimally up at 1-23 is negative. Ethanol is negative. Talk screen is positive for amphetamines, MDMA, and cannabinoids. Patient's rechecked. She is quiet in the room. She has gotten significant improvement with the meds. But there are still concerns of her increased behavior changes over the last few days. This is consistent with her prior psychiatric illness. There is questions if she is taking her meds. I think sending her home would not likely do well. For this reason are social insurance adviser has seen her and arranged admission. Patient is medically cleared for psychiatric evaluation and admission. History & Record Review Discussion w/independent historian: Other (I discussed the case directly with please officers who know this person from prior contact and went to see her today and brought her in.) Lab Data Attestation: I reviewed the patient's lab results. Labs: Laboratory Results - last 24 hr 08/05/22 08/05/22 08/05/22 10:45 10:45 10:45 WBC 7.5 RBC 3.69 L Hgb 10.8 L Hct 33.5 L MCV 90.8 MCH 29.3 MCHC 32.2 RDW Std Deviation 44.4 H RDW Coeff of Fabio 13.3 Plt Count 313 MPV 9.0 Immature Gran % (Auto) 0.400 Neut % (Auto) 61.0 Lymph % (Auto) 28.4 Tucker % (Auto) 8.0 Eos % (Auto) 1.9 Baso % (Auto) 0.3 Absolute Neuts (auto) 4.6 Absolute Lymphs (auto) 2.12 Nucleated RBC % 0 Sodium 144 Potassium 3.1 L Chloride 109 H Carbon Dioxide 23.0 Anion Gap 12 BUN 29 H Creatinine 0.74 Estim Creat Clear Calc 66.06 Est GFR (MDRD) Af Amer 108 Est GFR (MDRD) Non-Af 89 BUN/Creatinine Ratio 39.4 H Glucose 123 H Calcium 8.5 Serum , Qual Urine Opiates Screen Urine Methadone Screen Ur Barbiturates Screen Ur Phencyclidine Scrn Ur Amphetamines Screen MDMA (Ecstasy) Screen U Benzodiazepines Scrn Urine Cocaine Screen U Cannabinoids Screen Ur Drug Screen Comment Ethyl Alcohol < 3.0 08/05/22 08/05/22 10:45 11:01 WBC RBC Hgb Hct MCV MCH MCHC RDW Std Deviation RDW Coeff of Fabio Plt Count MPV Immature Gran % (Auto) Neut % (Auto) Lymph % (Auto) Tucker % (Auto) Eos % (Auto) Baso % (Auto) Absolute Neuts (auto) Absolute Lymphs (auto) Nucleated RBC % Sodium Potassium Chloride Carbon Dioxide Anion Gap BUN Creatinine Estim Creat Clear Calc Est GFR (MDRD) Af Amer Est GFR (MDRD) Non-Af BUN/Creatinine Ratio Glucose Calcium Serum , Qual NEGATIVE Urine Opiates Screen NEGATIVE Urine Methadone Screen NEGATIVE Ur Barbiturates Screen NEGATIVE Ur Phencyclidine Scrn NEGATIVE Ur Amphetamines Screen POSITIVE H MDMA (Ecstasy) Screen POSITIVE H U Benzodiazepines Scrn NEGATIVE Urine Cocaine Screen NEGATIVE U Cannabinoids Screen POSITIVE H Ur Drug Screen Comment Ethyl Alcohol EKG Initial EKG: Comments: My independent interpretation of the patient's EKG shows normal sinus rhythm with overall rate of 87. No ventricular ectopy. No acute ST elevation or depression. PA interval, QRS duration and QTc are normal. This is similar to prior from 29 December 2021 Discharge Plan Triage Chief Complaint: Mental Health ED Provider: Facundo Hoyt Dx/Rx/DC Orders Clinical Impression: Acute psychosis, Drug abuse, Hypokalemia Prescriptions: No Action sertraline 100 mg tablet 100 mg PO DAILY aripiprazole 10 mg tablet 10 mg PO DAILY albuterol sulfate [ProAir HFA] 90 mcg/actuation HFA aerosol inhaler 1 inh inhalation Q6H PRN (Reason: shortness of breath or wheezing) Qty: 6.7 0RF lorazepam [Ativan] 1 mg tablet 1 mg PO DAILY PRN (Reason: anxiety) Qty: 5 0RF lorazepam [Ativan] 1 mg tablet 1 mg PO TID PRN (Reason: anxiety) Qty: 10 0RF Primary Care Provider: Care Physician,No Primary Referrals: Care Physician,No Primary [Primary Care Provider] - Disposition Disposition: Psychiatric Hospital or Unit
[2022-08-05] MEDS: Ziprasidone IM 20 MG/ML VIAL IM (10:00)
--- NOTE | 2022-08-05 10:05 | EKG12_ITS ---
Test Reason : Blood Pressure : / mmHG Vent. Rate : 087 BPM Atrial Rate : 087 BPM P-R Int : 154 ms QRS Dur : 074 ms QT Int : 366 ms P-R-T Axes : 075 066 059 degrees QTc Int : 440 ms Normal sinus rhythm Possible Left atrial enlargement Septal infarct , age undetermined Abnormal ECG Confirmed by KG GUAMAN, KARLA ([id number]), multimedia editor RUCHI CRISOSTOMO ([id number]) on 08/08/2022 1:50:53 PM Referred By: Confirmed By:KARLA SAUL MD
--- NOTE | 2022-08-05 10:15 | NURSING ---
Pt arrived to ED screaming obscenities, throwing self around the room, screaming into the outlets, unable to calm down. Medicated per orders. Law enforcement remains available in dept. After medication, pt trying to calm self down and is sitting in the bed, taking deep breaths and talking through feelings. Not restrained at this time. Informed of boundaries at this time and she is cooperative. Will monitor.
--- NOTE | 2022-08-05 10:33 | CM.ED ---
SW Note Referral Source: Reason for Referral: Mental Health Informant: Police, Patient, Medical Staff and records review SW met with patient briefly. Patient was asked what is going on and she said not much. SW asked how patient was doing and she said wonderful. SW asked patient what brought her to the ED and she said nothing. SW asked patient if she is taking her medication and she reports she has been taking her medication. SW asked why the police brought her to the ED and she said I don't know. Patient voiced I am fine. Of note, SW was talking with patient after she was medicated with Geodon. Per [place] Slip On 08/05/22 I was dispatched for a disturbance at [address] Alma Potts is the resident there and has an extensive history of mental health disorders. According to neighbors Alma has been awake, throwing items down the stair sand screaming for 3 days straight. When officer arrive on the scene, Alma was screaming, throwing items down the stairs and not grounded in reality. Alma was rocking a stuffed animal saying it was her child and she needed to get the poison out of the baby. As i went inside the apartment, I looked inside Alma's kitchen and she had no food in the fridge and little to no evidence of taking care of herself or eating. Alma would benefit from treatment. [place] slip completed by ALEAH Heath. SOFIE reviewed past records to obtain from previous assessment completed 12/29/2021 due to patient's current status in the ED. Marital Status: Living Situation: Patient resides in a apartment in [facility] per pink slip Support/Resources: Unknown. History: None Education and Employment History: Patient is disabled. 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 Per geriatric social worker patient has a case reviewer, Pierce Quinones. On 06/07/22 it was reported that patient was talking about demons . On 08/01/22 patient did not show up for her psychiatric medication appointment. Patient has not seen her psychiatric medication provider, Dr. Loreta Jarrett, since January 22 2022. Triggers and Stressors: Unable to identify Coping Skills: Unable to Identify Abuse Issues: Unknown Substance Abuse: Patient has history of meth use. Risk to Self and Other: Suicide: Per MD notes the police report that patient made comments about suicide Homicide: Per MD notes the police report that patient had made comments about homicide. Violence: Unknown. Patient did walk into the hospital with police. Mental Status Exam: Unable to evaluate and assess Memory: Unable to evaluate and assess Appearance: Disheveled Mood and Affect: Patient was able to speak to this junior copywriter briefly, after given medication. However, prior to taking the medication she was reported to be agitated. Communication and Pattern: Per MD note patient had flight of ideas Thought Process: Per MD note patient appears to be internally stimulated Judgement: Average Insight: Poor Insight: Poor SW consulted with MD Hoyt and he agrees that patient needs inpatient psych for crisis stabilization and medication management. Plan: Inpatient Psych Audrey GUAJARDO
[2022-08-05 10:58] LABS: Absolute Lymphocyte Count 2.12 X10^3/uL (0.83-4.51); Absolute Neutrophil Count 4.6 X10^3/uL (2.0-7.7); Basophil# 0.02 X10^3/uL; Basophil% 0.3 % (0-1); Eosinophil# 0.14 X10^3/uL; Eosinophils% 1.9 % (0-5); Hematocrit 33.5 % (37-47); Hemoglobin 10.8 g/dL (12.0-15.0); Lymphocyte # 2.12 X10^3/ul (0.83-4.51); Lymphocyte % 28.4 % (19-41); Mean Corp Hgb Conc 32.2 g/dL (32-36); Mean Corpuscular Hgb 29.3 pg (27.0-32.0); Mean Corpuscular Volume 90.8 fL (81-99); NRBC Flagged by Analyzer 0 % (0-5); Neutrophil # 4.56 X10^3/uL (2.7-7.7); Platelet Count 313 K/mm3 (150-450); RBC Distribution Width CV 13.3 % (11.6-14.6); RBC Distribution Width SD 44.4 fl (35.1-43.9); Red Blood Count 3.69 M/mm3 (4.2-5.4); White Blood Count 7.5 K/mm3 (4.4-11.0)
[2022-08-05 11:14] LABS: Anion Gap 12 (5-15); BUN 29 mg/dL (7-18); BUN/Creat Ratio 39.4 RATIO (10-20); Calcium,Total 8.5 mg/dL (8.5-10.1); Chloride 109 mmol/L (98-107); Creatinine, Serum 0.74 mg/dL (0.55-1.02); EST Glomerular Filtration Rate 89 mL/min (>60); Est Glom Filt Rate - Afr Amer 108 mL/min (>60); Estimated Creatinine Clearance 66.06 ml/min; Glucose 123 mg/dL (74-106); Potassium 3.1 mmol/L (3.5-5.1); Sodium Level 144 mmol/L (136-145)
[2022-08-05 11:22] LABS: Amphetamine Urine VISTA POSITIVE (<1000 ng/mL); Barbiturate Urine VISTA NEGATIVE (< 200 ng/mL); Benzodiazepine Urine VISTA NEGATIVE (< 200 ng/mL); Cocaine Urine VISTA NEGATIVE (< 300 ng/mL); Ecstacy Urine VISTA POSITIVE (< 500 ng/mL); Methadone Urine VISTA NEGATIVE (< 300 ng/mL); PCP Urine VISTA NEGATIVE (< 25 ng/mL); THC Urine VISTA POSITIVE (< 50 ng/mL); Vista UDS pH Range 4
[2022-08-05 11:28] LABS: Internal QC Validated? YES +Cl - CLEAR BKGD; Pregnancy, Serum, hCG Quali. NEGATIVE Negative
[2022-08-05 11:31] LABS: Alcohol, Blood (Medical)-Serum < 3.0 mg/dL
[2022-08-05 12:01] VITALS: BP 102/72; PULSE 63; RESP 16; TEMP 36.1; O2SAT 100
--- NOTE | 2022-08-05 12:12 | CM.ED ---
Addendum entered by Audrey Hurst 08/05/22 12:21: Alecia from [facility] called. She inquired if patient had any additional medication since 10:00am and clinical social worker said no. Alecia said [facility] can accept patient. Accepting MD is [place] an patient is going to ITU #2. If patient is given any other medication to calm patient down she will need to wait one hour to transport. RN to RN is [phone]. SOFIE updated bank messenger, RN and MD. SOFIE called [facility] and Koko Wilde and cancelled the referral for patient as placement had been secured. Plan: [place] Original Note: SOFIE faxed referral to [facility], Sue and Koko Wilde. Audrey GUAJARDO
== END 2022-08-05 13:07 ==
PROVIDERS: Emergency Provider Emergency Medicine; Visit Provider Emergency Medicine
DX: F23 Brief psychotic disorder (principal); F19.19 Other psychoactive substance abuse with unspecified psychoactive substance-induced disorder; E87.6 Hypokalemia; F17.210 Nicotine dependence, cigarettes, uncomplicated; R45.851 Suicidal ideations; R45.850 Homicidal ideations; Z20.822 Contact with and (suspected) exposure to COVID-19
CPT/HCPCS: 80048; 80307; 82077; 84703; 85025; 87811; 93005; 96372; 99283; J3486

== ENCOUNTER 2022-08-17 11:53 | Emergency (ER) | payer MEDICARE, MEDICAID, SELFPAY ==
[2022-08-17 11:54] VITALS: BP 119/91; PULSE 96; RESP 18; TEMP 36.4; O2SAT 100; BMI 18.5
--- NOTE | 2022-08-17 13:21 | EKG12_ITS ---
Test Reason : Blood Pressure : / mmHG Vent. Rate : 076 BPM Atrial Rate : 076 BPM P-R Int : 146 ms QRS Dur : 068 ms QT Int : 382 ms P-R-T Axes : 059 071 036 degrees QTc Int : 429 ms Normal sinus rhythm Septal infarct , age undetermined Abnormal ECG Confirmed by JARVIS GUAMAN, ABBY ([id number]), manager editorial RUCHI CRISOSTOMO ([id number]) on 08/19/2022 7:02:01 AM Referred By: Confirmed By:RENATE CONLEY MD
--- NOTE | 2022-08-17 13:22 | EX.ED.DYSGE1 ---
HPI History of Present Illness Chief Complaint: Anxiety Informant: patient Narrative Narrative: Patient is a 47-year-old female with history of anxiety, bipolar disorder and substance abuse presenting with anxiety and headache. Patient states she has been having nonstop panic attacks. Patient's not sure she is taking her medications. Chart review shows that patient recently had a psychiatric hospitalization for psychosis 2 weeks ago however patient states she does not remember anything about that. She is also complaining of headache and cold-like symptoms. She is complaining of photophobia and has felt like she may have had a fever for the past days. She has a headache is over her forehead. Tonight she states her face and head hurt and she has no idea how long this is going on. She has had a cough. Patient denies any other complaints at this time. [facility] Medical History Anxiety Bipolar 1 disorder Psychosis Home Medications aripiprazole 10 mg tablet 10 mg PO DAILY 05/22/21 [History Last Taken Unknown] sertraline 100 mg tablet 100 mg PO DAILY 05/22/21 [History Last Taken Unknown] albuterol sulfate 90 mcg/actuation aerosol inhaler (ProAir HFA) 1 inh inhalation Q6H PRN shortness of breath or wheezing #6.7 grams 02/20/22 [Rx Last Taken Unknown] lorazepam 1 mg tablet (Ativan) 1 mg PO DAILY PRN anxiety #5 tabs 02/23/22 [Rx Last Taken Unknown] lorazepam 1 mg tablet (Ativan) 1 mg PO TID PRN anxiety #10 tabs 02/27/22 [Rx Last Taken Unknown] Allergy/AdvReac Type Severity Reaction Status Date / Time No Known Allergies Allergy Verified 08/17/22 11:59 Social History household members: none Smoking Status: Current every day smoker tobacco type: cigarettes substance use type: unknown ROS ROS ED Constitutional Constitutional ED: Reports chills and fever(s) Eyes Eyes: Reports other Details: photophobia ; Denies blurry vision or change in vision ENT ENT ED: Reports other Details: congestion ; Denies rhinorrhea or sore throat Cardiovascular Cardiovascular: Denies chest pain Respiratory/Chest Respiratory/Chest: Reports cough and dyspnea Gastrointestinal Gastrointestinal: Denies abdominal pain, nausea or vomiting Genitourinary Genitourinary ED: Denies dysuria Musculoskeletal Musculoskeletal: Denies arthralgias or myalgias Integumentary Denies rash Neurologic Neurologic: Reports headache(s); Denies paresthesias or weakness Psychiatric Psychiatric: Reports anxiety and depression Hematologic/Lymphatic Hematologic/Lymphatic: Denies easy bleeding or easy bruising EXAM Physical Exam Const Vital Signs: 08/17/22 11:54 08/17/22 16:10 Temperature 97.6 F L Temperature Source Temporal Pulse Rate 96 63 Respiratory Rate 18 16 Blood Pressure 119/91 H 138/76 H Blood Pressure Mean 100 96 Pulse Ox 100 97 Oxygen Delivery Method Room Air Room Air Positive well nourished and well developed Constitutional Narrative: Patient curled up in a ball on the bed with a blanket over her face General Appearance ED: well developed and NAD HEENT Reports TM's clear and moist mucous membranes HEENT Narrative: Nasal congestion present Negative for trauma Tympanic Membrane ED: Yes TM's clear Eyes PERRL and EOMs intact bilaterally Neck no lymphadenopathy and supple Neck Narrative: Normal range of motion. No nuchal rigidity. Chest Wall inspection of chest normal and palpation of chest normal Resp normal respiratory effort and clear to auscultation bilaterally Cardio regular rate, regular rhythm and no murmurs GI normal to inspection, nondistended, normoactive bowel sounds and non-tender Extremity normal to inspection General Extremety ED: Negative for edema or tenderness General Extremity: Negative for edema Neuro oriented x3 and CN's II-XII intact bilaterally Neuro Narrative: No focal deficits appreciated Sensorium / Orientation: alert Psych Psych Narrative: Answers I do not know to a lot of questions but then will answer other questions appropriately. Suspect this is more effort related. Does not appear internally stimulated or acutely psychotic at this time. Mood & Affect: anxious and tearful Skin no rashes or lesions noted and no wounds MDM MDM MDM Narrative Medical decision making narrative: Patient is evaluated for anxiety as well as headache and photophobia. Presentation actually seems most consistent with a migraine however given her underlying psychiatric history does make thorough HPI more difficult. She is not having meningeal signs or fever. I have a low suspicion for meningitis. Patient is PE RC negative. Do not suspect PE as a cause of her shortness of breath. Seems like she might have a viral syndrome. She initially is given oral ibuprofen and oral Ativan. I was later informed by nursing staff that patient has a history of drug-seeking behavior. I canceled the Ativan and switched to Geodon however patient already received oral Ativan so Geodon was then canceled. On repeat evaluation patient is containing complaint of headache and photophobia. She is given migraine cocktail and CT brain is ordered to rule out. Patient is reevaluated and has improvement and is now resting comfortably. She is sleeping. She is arousable but not awake enough to be discharged home at this time. She does not appear to be in any distress. Vital signs remained stable and she remains afebrile in the emergency room. Will be signed out to oncoming physician pending patient becoming more alert and being able to be discharged home. Lab Data Labs: Laboratory Results - last 24 hr 08/17/22 08/17/22 15:00 15:00 WBC 13.3 H RBC 3.73 L Hgb 10.8 L Hct 33.2 L MCV 89.0 MCH 29.0 MCHC 32.5 RDW Std Deviation 42.7 RDW Coeff of Fabio 13.1 Plt Count 391 MPV 9.4 Immature Gran % (Auto) 0.500 Neut % (Auto) 72.2 H Lymph % (Auto) 20.6 [place] % (Auto) 5.5 Eos % (Auto) 1.0 Baso % (Auto) 0.2 Absolute Neuts (auto) 9.7 H Absolute Lymphs (auto) 2.74 Nucleated RBC % 0 Sodium 141 Potassium 3.3 L Chloride 105 Carbon Dioxide 27.0 Anion Gap 9 BUN 9 Creatinine 0.43 L Estim Creat Clear Calc 107.43 Est GFR (MDRD) Af Amer 200 Est GFR (MDRD) Non-Af 165 BUN/Creatinine Ratio 20.9 H Glucose 87 Calcium 8.6 Total Bilirubin 0.70 AST 20 ALT 20 Alkaline Phosphatase 80 Total Protein 6.5 Albumin 3.1 L Globulin 3.4 Albumin/Globulin Ratio 0.9 Radiography Diagnostic Testing: Clinical Impression(s) from Imaging Studies Chest X-Ray 08/17/22 13:35 IMPRESSION: Degenerative changes, as described above. No demonstrated acute cardiopulmonary process. Electronically Signed: Arnel Riley MD at 14:08 EDT , Brain CT 08/17/22 14:55 IMPRESSION: Normal unenhanced CT scan of the brain. Electronically Signed: Arnel Riley MD at 15:38 EDT , Rhythm Strip Rhythm Strip: Sinus Rhythm Rate: 76 Ectopy: None EKG Initial EKG: Attestation: I personally reviewed and interpreted this EKG as follows: Interpretation: Sinus Rhythm Comments: Normal sinus rhythm at a rate of 76 bpm Normal axis Normal intervals Normal ST segments Discharge Plan Triage Chief Complaint: Anxiety ED Provider: Niya Gamez Dx/Rx/DC Orders Clinical Impression: Headache, Anxiety Instructions: ED, Migraine (Classical), ED Panic Attack Prescriptions: No Action sertraline 100 mg tablet 100 mg PO DAILY aripiprazole 10 mg tablet 10 mg PO DAILY albuterol sulfate [ProAir HFA] 90 mcg/actuation HFA aerosol inhaler 1 inh inhalation Q6H PRN (Reason: shortness of breath or wheezing) Qty: 6.7 0RF lorazepam [Ativan] 1 mg tablet 1 mg PO DAILY PRN (Reason: anxiety) Qty: 5 0RF lorazepam [Ativan] 1 mg tablet 1 mg PO TID PRN (Reason: anxiety) Qty: 10 0RF Primary Care Provider: Care Physician,No Primary Referrals: Domonique Lubin [Non-Staff] - As soon as possible Care Physician,No Primary [Primary Care Provider] - Activity Restrictions/Additional Instructions: Alternate ibuprofen and Tylenol for headache. Follow-up with primary care. Make sure you are taking your regular psychiatric medications. Disposition Disposition: Home, Self Care
[2022-08-17] MEDS: LORazepam 1 MG Tablet PO (13:26)
[2022-08-17] MEDS: Ibuprofen 600 MG Tablet PO (13:26)
--- NOTE | 2022-08-17 13:35 | RAD_ITS ---
STUDY: X-RAY CHEST REASON FOR EXAM: Female, 47 years old. cough, sob PATIENT UNDER ALOT OF STRESS AND HAVING DIFFICULTY COPING. PATIENT WITH INCREASED ANXIETY AND HAS EPISODES OF SHORTNESS OF BREATH. TECHNIQUE: PA and lateral views of the chest. COMPARISON: January 04, 2021 FINDINGS: The lungs are clear and expanded. There is no demonstrated pleural abnormality. Normal size heart. Normal mediastinum and jeffrey. Normal visualized pulmonary arteries. There is atherosclerotic calcification of the aortic arch with tortuosity. There are diffuse degenerative changes of the visualized thoracic spine. Normal visualized ribs, clavicles, and shoulders. There is no demonstrated abnormality of the visualized soft tissue structures of the upper abdomen. RAD/Chest PA and Lateral IMPRESSION: Degenerative changes, as described above. No demonstrated acute cardiopulmonary process. Electronically Signed: Arnel Riley MD at 14:08 EDT ,
--- NOTE | 2022-08-17 14:55 | CT_ITS ---
STUDY: CT BRAIN WITHOUT CONTRAST REASON FOR EXAM: Female, 47 years old. Headache PATIENT UNDER ALOT OF STRESS AND HAVING DIFFICULTY COPING. PATIENT WITH INCREASED ANXIETY AND HAS EPISODES OF SHORTNESS OF BREATH. RADIATION DOSAGE (If Supplied By Facility): CTDIvol = ( 47.06 ) mGy, DLP = ( 960.91 ) mGycm TECHNIQUE: Transaxial CT imaging of the brain was performed without administration of intravenous contrast material. Individualized dose optimization techniques were used for this CT. COMPARISON: Head CT dated September 16, 2016 FINDINGS: Normal soft tissue structures. Normal calvarium. No visualized hydrocephalus or midline shift. No dense artery sign or sulcal effacement or parenchymal edema is present. There is asymmetry of the ventricles consistent with an anatomic variant. Normal white matter tracts of the cerebral hemispheres. Normal basal ganglia and thalami. Normal brainstem. Normal cerebellum. There is no intracranial hemorrhage. There are no findings of an acute ischemic infarction. Normal visualized paranasal sinuses. CT/Brain/Head without Contrast IMPRESSION: Normal unenhanced CT scan of the brain. Electronically Signed: Arnel Riley MD at 15:38 EDT ,
[2022-08-17] MEDS: 0.9% Normal Saline 1,000 ML 999 ML IV (15:06)
[2022-08-17] MEDS: DiphenhydrAMINE 50 MG/ML Syringe IV (15:07)
[2022-08-17] MEDS: proCHLORPERazine 10 MG/2 ML Vial IV (15:07)
[2022-08-17 15:27] LABS: Absolute Lymphocyte Count 2.74 X10^3/uL (0.83-4.51); Absolute Neutrophil Count 9.7 X10^3/uL (2.0-7.7); Basophil# 0.02 X10^3/uL; Basophil% 0.2 % (0-1); Eosinophil# 0.13 X10^3/uL; Hematocrit 33.2 % (37-47); Hemoglobin 10.8 g/dL (12.0-15.0); Lymphocyte # 2.74 X10^3/ul (0.83-4.51); Lymphocyte % 20.6 % (19-41); Mean Corp Hgb Conc 32.5 g/dL (32-36); Mean Platelet Vol. 9.4 fl (6.2-12.0); Monocyte# 0.73 X10^3/uL; Monocyte% 5.5 % (0-10); NRBC Flagged by Analyzer 0 % (0-5); Neutrophil # 9.65 X10^3/uL (2.7-7.7); Neutrophil % 72.2 % (47-70); Platelet Count 391 K/mm3 (150-450); RBC Distribution Width CV 13.1 % (11.6-14.6); RBC Distribution Width SD 42.7 fl (35.1-43.9); Red Blood Count 3.73 M/mm3 (4.2-5.4); White Blood Count 13.3 K/mm3 (4.4-11.0)
[2022-08-17 16:10] VITALS: BP 138/76; PULSE 63; RESP 16; O2SAT 97
[2022-08-17 16:23] LABS: ALB/GLOB Ratio 0.9 RATIO (0.9-2.4); AST(SGOT) 20 U/L (15-37); Alanine Aminotransfer ALT/SGPT 20 U/L (13-56); Albumin, Serum 3.1 g/dL (3.2-5.0); Alkaline Phosphatase 80 U/L (45-117); Anion Gap 9 (5-15); BUN 9 mg/dL (7-18); BUN/Creat Ratio 20.9 RATIO (10-20); Calcium,Total 8.6 mg/dL (8.5-10.1); Chloride 105 mmol/L (98-107); Creatinine, Serum 0.43 mg/dL (0.55-1.02); EST Glomerular Filtration Rate 165 mL/min (>60); Est Glom Filt Rate - Afr Amer 200 mL/min (>60); Estimated Creatinine Clearance 107.43 ml/min; Globulin 3.4 g/dL (2.2-4.2); Glucose 87 mg/dL (74-106); Potassium 3.3 mmol/L (3.5-5.1); Protein, Total 6.5 g/dL (6.4-8.2); Sodium Level 141 mmol/L (136-145)
--- NOTE | 2022-08-17 19:08 | ED.RN ---
HRO RETURNED WITH PT, IV REMOVED. PT CALM AND COOPERATIVE WITH STAFF.
== END 2022-08-17 19:09 | disposition home or self-care (01) ==
PROVIDERS: Emergency Provider Emergency Medicine; Visit Provider Emergency Medicine
DX: F41.9 Anxiety disorder, unspecified (principal); F17.210 Nicotine dependence, cigarettes, uncomplicated; R51.9 Headache, unspecified
CPT/HCPCS: 70450; 71046; 80053; 85025; 93005; 96361; 96374; 96375; 99285; J7030; A4216

== ENCOUNTER 2022-08-21 21:35 | Emergency (ER) | payer MEDICARE, MEDICAID, SELFPAY ==
[2022-08-21 21:36] VITALS: BP 140/87; PULSE 88; RESP 16; TEMP 36.6; O2SAT 100; BMI 18.7
--- NOTE | 2022-08-21 22:30 | EKG12_ITS ---
Test Reason : CP Blood Pressure : / mmHG Vent. Rate : 086 BPM Atrial Rate : 086 BPM P-R Int : 152 ms QRS Dur : 078 ms QT Int : 340 ms P-R-T Axes : 071 064 060 degrees QTc Int : 406 ms Normal sinus rhythm Septal infarct , age undetermined Abnormal ECG Confirmed by FARTUN GUAMAN, CHUCKIE ([id number]), scientific publications editor RUCHI CRISOSTOMO ([id number]) on 08/22/2022 12:42:25 PM Referred By: VALENTINA Confirmed By:CHUCKIE WILLOUGHBY MD
[2022-08-21 22:35] VITALS: RESP 16
--- NOTE | 2022-08-21 22:59 | EX.ED.VIS.UR ---
HPI HPI - URI History of Present Illness Chief Complaint: Chest Pain Narrative Narrative: 47-year-old female presenting with cough and congestion. She states he had this for about 3 days. She was seen in the emergency room and previously evaluated for this. She states that she continuously has production of sputum. She has not had a fever. She complains of some right rib pain but states he is not coughing tremendously. She is very angry and has turned around in the bed and went face me while I interview her. She is cussing at me and telling me to look in the chart for information. ROS ROS ED Constitutional Constitutional ED: Denies chills or fever(s) Eyes Eyes: Denies change in vision or diplopia ENT ENT ED: Reports rhinorrhea and sore throat Cardiovascular Cardiovascular: Denies chest pain or palpitations Respiratory/Chest Respiratory/Chest: Reports cough Gastrointestinal Gastrointestinal: Denies abdominal pain, nausea or vomiting Genitourinary Genitourinary ED: Denies dysuria Musculoskeletal Musculoskeletal: Denies arthralgias Integumentary Denies abscess Neurologic Neurologic: Denies headache(s) or paresthesias PFSH PFSH Medical History Anxiety Bipolar 1 disorder Psychosis Home Medications aripiprazole 10 mg tablet 10 mg PO DAILY 05/22/21 [History Last Taken Unknown] sertraline 100 mg tablet 100 mg PO DAILY 05/22/21 [History Last Taken Unknown] albuterol sulfate 90 mcg/actuation aerosol inhaler (ProAir HFA) 1 inh inhalation Q6H PRN shortness of breath or wheezing #6.7 grams 02/20/22 [Rx Last Taken Unknown] lorazepam 1 mg tablet (Ativan) 1 mg PO DAILY PRN anxiety #5 tabs 02/23/22 [Rx Last Taken Unknown] lorazepam 1 mg tablet (Ativan) 1 mg PO TID PRN anxiety #10 tabs 02/27/22 [Rx Last Taken Unknown] guaifenesin 1,200 mg tablet, extended release 12 hr (Mucinex) 1,200 mg PO BID #20 tabs 08/22/22 [Rx Last Taken Unknown] Allergy/AdvReac Type Severity Reaction Status Date / Time No Known Allergies Allergy Verified 08/21/22 21:38 Social History household members: none Smoking Status: Current every day smoker tobacco type: cigarettes substance use type: unknown EXAM Physical Exam Const Vital Signs: 08/21/22 21:36 08/21/22 22:35 Temperature 97.9 F Temperature Source Temporal Pulse Rate 88 Respiratory Rate 16 16 Blood Pressure 140/87 H Blood Pressure Mean 104 Pulse Ox 100 Oxygen Delivery Method Room Air Positive well nourished General Appearance ED: NAD HEENT Reports moist mucous membranes normocephalic Eyes EOMs intact bilaterally Neck no lymphadenopathy Resp normal respiratory effort and clear to auscultation bilaterally Auscultation: Negative for rales, rhonchi or wheezes GI non-tender Neuro oriented x3 and CN's II-XII intact bilaterally Sensorium / Orientation: alert Motor Exam: strength 5/5 throughout Psych mental status grossly normal MDM MDM MDM Narrative Medical decision making narrative: Patient presenting with cough and congestion. She is concerned she had pneumonia. She is clear to auscultation on exam. Her vital signs are stable and she is afebrile. She is 100% on room air. Patient also complaining of right lower rib pain. Is unclear if this is from coughing. She given a shot of Toradol IM. I will obtain a two-view chest x-ray. She is already had blood work twice this month which is fairly unremarkable. Patient's chest x-ray on my interpretation shows no acute cardiopulmonary process. Radiology interpreted this and agrees. Patient was placed on Mucinex. She states she has no further questions or concerns. Discharged stable condition. Impression: 1. Viral URI Radiography Diagnostic Testing: Clinical Impression(s) from Imaging Studies Chest X-Ray 08/21/22 23:05 IMPRESSION: No acute cardiopulmonary disease. Electronically Signed: Maximiliano Patrick MD at 23:29 EDT , Discharge Plan Triage Chief Complaint: Chest Pain ED Provider: aKnu Patel Dx/Rx/DC Orders Prescriptions: New Mucinex 1,200 mg tablet extended release 12hr 1,200 mg PO BID Qty: 20 0RF No Action sertraline 100 mg tablet 100 mg PO DAILY aripiprazole 10 mg tablet 10 mg PO DAILY albuterol sulfate [ProAir HFA] 90 mcg/actuation HFA aerosol inhaler 1 inh inhalation Q6H PRN (Reason: shortness of breath or wheezing) Qty: 6.7 0RF lorazepam [Ativan] 1 mg tablet 1 mg PO DAILY PRN (Reason: anxiety) Qty: 5 0RF lorazepam [Ativan] 1 mg tablet 1 mg PO TID PRN (Reason: anxiety) Qty: 10 0RF Primary Care Provider: Care Physician,No Primary Referrals: Care Physician,No Primary [Primary Care Provider] - Disposition Disposition: Home, Self Care
--- NOTE | 2022-08-21 23:05 | RAD_ITS ---
INDICATION: Cough. EXAMINATION/TECHNIQUE: X-RAY - XR Chest 2 Views COMPARISON: August 17, 2022 chest x-ray. FINDINGS: LINES/DEVICES: None. LUNGS: Mild hyperinflation. No focal consolidation or pleural effusion. No pneumothorax. MEDIASTINUM AND CARDIOVASCULAR STRUCTURES: Cardiac silhouette not enlarged. Aortic calcification and tortuosity. Pulmonary vascularity is normal. BONES AND SOFT TISSUES: Mild degenerative changes. No acute osseous injury. Mild gaseous distention of the small bowel loops in the left upper quadrant. RAD/Chest PA and Lateral IMPRESSION: No acute cardiopulmonary disease. Electronically Signed: Maximiliano Patrick MD at 23:29 EDT ,
== END 2022-08-22 00:23 | disposition home or self-care (01) ==
PROVIDERS: Emergency Provider Student in an Organized Health Care Education/Training Program; Visit Provider Student in an Organized Health Care Education/Training Program
DX: J06.9 Acute upper respiratory infection, unspecified (principal); F17.210 Nicotine dependence, cigarettes, uncomplicated
CPT/HCPCS: 71046; 93005; 99282

== ENCOUNTER 2022-09-17 14:54 | Emergency (ER) | payer MEDICARE, MEDICAID, SELFPAY ==
[2022-09-17 14:55] VITALS: BP 142/108; PULSE 100; RESP 20; TEMP 36.6; O2SAT 100; BMI 19.5
--- NOTE | 2022-09-17 15:11 | EDS_ITS ---
HPI History of Present Illness Chief Complaint: Eye Problem Narrative Narrative: 47-year-old female here with left eye irritation. She states she feels like there is something in her eye. She does note sinus pressure as well. Denies woodworking, trauma to the eye. Does not wear contacts. Notes if she wears glasses. Does note some sinus pressure but denies any thick rhinorrhea cough or recent fever denies any blurry vision or double vision. She states she feels like string is attached to my eye. PFSH PFS Medical History Anxiety Bipolar 1 disorder Psychosis Home Medications aripiprazole 10 mg tablet 10 mg PO DAILY 05/22/21 [History Last Taken Unknown] sertraline 100 mg tablet 100 mg PO DAILY 05/22/21 [History Last Taken Unknown] albuterol sulfate 90 mcg/actuation aerosol inhaler (ProAir HFA) 1 inh inhalation Q6H PRN shortness of breath or wheezing #6.7 grams 02/20/22 [Rx Last Taken Unknown] lorazepam 1 mg tablet (Ativan) 1 mg PO DAILY PRN anxiety #5 tabs 02/23/22 [Rx Last Taken Unknown] lorazepam 1 mg tablet (Ativan) 1 mg PO TID PRN anxiety #10 tabs 02/27/22 [Rx Last Taken Unknown] guaifenesin 1,200 mg tablet, extended release 12 hr (Mucinex) 1,200 mg PO BID #20 tabs 08/22/22 [Rx Last Taken Unknown] ketorolac 0.4 % eye drops 1 drp LEFT EYE Q6H 5 days #20 mL 09/17/22 [Rx Last Taken Unknown] ofloxacin 0.3 % eye drops 1 drp LEFT EYE Q6H #10 mL 09/17/22 [Rx Last Taken Unknown] Allergy/AdvReac Type Severity Reaction Status Date / Time No Known Allergies Allergy Verified 09/17/22 14:57 Social History household members: none Smoking Status: Current every day smoker tobacco type: cigarettes substance use type: unknown ROS ROS ED ROS Narrative Constitutional: Denies fever HEENT: Denies sore throat, endorses left eye irritation Neck: Denies neck pain Cardiovascular: Denies chest pain, syncope Respiratory: Denies shortness of breath GI: Denies nausea vomiting or abdominal pain : Denies changes in urinary habits Musculoskeletal: Denies muscle or joint pain Neurologic: Denies numbness weakness or loss of sensation Skin denies rash EXAM Physical Exam Narrative Exam Narrative: Nursing triage notes reviewed, Vital signs reviewed Constitutional: please see [facility] HENT: MMM Eyes: Pupils equal round and reactive to light, Extraocular muscles intact, intraocular pressure 18 bilaterally, visual acuity 20/30 bilaterally within normal limits, conjunctiva injected. no FB on lid eversion. Neck: No stridor, no JVD, full neck ROM Lungs: Clear to auscultation, No wheezing or rales. No increased work of breathing, no conversational dyspnea, no accessory muscle use, no nasal flaring. No respiratory distress noted Heart: Regular rate and rhythm, No murmurs, No rubs and No gallops, 2+ distal pulses (radial, femoral, posterior tibial) in all extremities Abdomen: Soft, there is no tenderness, rigidity, rebound or guarding, no obvious peritoneal signs, no palpable pulsatile abdominal masses, no auscultated abdominal bruit : No CVAT Extremities: No edema Neuro: No focal neurological deficits, cranial nerves II through XII intact, 5/5 strength in all extremities. Intact sensation to light touch in all extremities, 2+ reflexes bilateral patella dens. Normal gait. No ataxia. Skin: No rash or lesions noted Const Vital Signs: 09/17/22 14:55 Temperature 98 F Temperature Source Temporal Pulse Rate 100 Respiratory Rate 20 H Blood Pressure 142/108 H Blood Pressure Mean 119 Pulse Ox 100 Oxygen Delivery Method Room Air [facility] [place] Narrative Medical decision making narrative: Chief Complaint: External records reviewed: I considered the following differential diagnosis: Borderline, delayed skin, dacryocystitis, foreign body, globe rupture, orbital cellulitis, preseptal cellulitis Patient was given tetracaine for symptomatic relief. No obvious etiology could be determined. No signs of orbital cellulitis, preseptal cellulitis or pain with extraocular muscle movements. No signs of cavernous sinus thrombosis no evidence of foreign body, globe rupture hordeolum, chalazion, dacryocystitis on exam. No clear eye threatening pathology Identified. The patient was given prophylactic antimicrobial drops and instructions to follow with ophthalmology at the next available appointment. Factors affecting care: History mental health issues Social determinants of health: History of substance abuse History obtained from others: The patient significant other Shared decision making: I will have a discussion with the patient and or visitors regarding risk/benefits of further testing or admission. They will be made aware of of the risk/benefits inherent in this decision they will be given the opportunity to voice understanding. Consults: None Discharge Plan Triage Chief Complaint: Eye Problem ED Provider: Sim Pickens Dx/Rx/DC Orders Instructions: ED Foreign Body Conjunctival Ch Prescriptions: New ofloxacin 0.3 % drops 1 drp LEFT EYE Q6H Qty: 10 0RF ketorolac 0.4 % drops 1 drp LEFT EYE Q6H 5 Days Qty: 20 0RF No Action sertraline 100 mg tablet 100 mg PO DAILY aripiprazole 10 mg tablet 10 mg PO DAILY albuterol sulfate [ProAir HFA] 90 mcg/actuation HFA aerosol inhaler 1 inh inhalation Q6H PRN (Reason: shortness of breath or wheezing) Qty: 6.7 0RF lorazepam [Ativan] 1 mg tablet 1 mg PO DAILY PRN (Reason: anxiety) Qty: 5 0RF lorazepam [Ativan] 1 mg tablet 1 mg PO TID PRN (Reason: anxiety) Qty: 10 0RF Mucinex 1,200 mg tablet extended release 12hr 1,200 mg PO BID Qty: 20 0RF Primary Care Provider: Care Physician,No Primary Referrals: Care Physician,No Primary [Primary Care Provider] - Activity Restrictions/Additional Instructions: Please return if develop loss of vision in your involved eye. Disposition Disposition: Home, Self Care
[2022-09-17] MEDS: Fluorescein 1 MG STRIP 1 STRIP LEFT EYE (15:29)
[2022-09-17] MEDS: Tetracaine 0.5% Ophthalmic Bottle 1 DRP LEFT EYE (15:29)
[2022-09-17] MEDS: LORazepam 1 MG Tablet PO (15:55)
== END 2022-09-17 16:23 | disposition home or self-care (01) ==
PROVIDERS: Emergency Provider Emergency Medicine; Visit Provider Emergency Medicine
DX: H57.12 Ocular pain, left eye (principal); F17.210 Nicotine dependence, cigarettes, uncomplicated
CPT/HCPCS: 99281; 99283

== ENCOUNTER 2023-09-30 15:48 | Emergency (ER) | payer MEDICARE, MEDICAID, SELFPAY ==
--- NOTE | 2023-09-30 15:51 | EX.ED.DYSGE1 ---
HPI History of Present Illness Chief Complaint: General Illness Informant: patient Narrative Narrative: Presents by EMS after concerns that send called while patient had a gas station. History of COPD and anxiety. She denies cough she states intermittent wheezing with tobacco history. Denies fevers. She is homeless, no PCP. She denies any homicidal or suicidal ideations. She states she did not want to come to the hospital. However during discussion she states she just wants an Ativan. [facility] Medical History Anxiety Bipolar 1 disorder Psychosis Home Medications aripiprazole 10 mg tablet 10 mg PO DAILY 05/22/21 [History Last Taken Unknown] sertraline 100 mg tablet 100 mg PO DAILY 05/22/21 [History Last Taken Unknown] albuterol sulfate 90 mcg/actuation aerosol inhaler (ProAir HFA) 1 inh inhalation Q6H PRN shortness of breath or wheezing #6.7 grams 02/20/22 [Rx Last Taken Unknown] lorazepam 1 mg tablet (Ativan) 1 mg PO DAILY PRN anxiety #5 tabs 02/23/22 [Rx Last Taken Unknown] lorazepam 1 mg tablet (Ativan) 1 mg PO TID PRN anxiety #10 tabs 02/27/22 [Rx Last Taken Unknown] guaifenesin 1,200 mg tablet, extended release 12 hr (Mucinex) 1,200 mg PO BID #20 tabs 08/22/22 [Rx Last Taken Unknown] ketorolac 0.4 % eye drops 1 drp LEFT EYE Q6H 5 days #20 mL 09/17/22 [Rx Last Taken Unknown] ofloxacin 0.3 % eye drops 1 drp LEFT EYE Q6H #10 mL 09/17/22 [Rx Last Taken Unknown] hydroxyzine HCl 25 mg tablet 25 mg PO TID PRN anxiety #20 tabs 09/30/23 [Rx Last Taken Unknown] Allergy/AdvReac Type Severity Reaction Status Date / Time No Known Allergies Allergy Verified 09/17/22 14:57 Social History household members: none Smoking Status: Current every day smoker tobacco type: cigarettes and e-cigarettes substance use type: unknown ROS ROS ED Constitutional Constitutional ED: Denies chills, fever(s) or sweats Eyes Eyes: Denies change in vision ENT ENT ED: Denies dysphagia or sore throat Cardiovascular Cardiovascular: Denies chest pain, leg edema, palpitations or racing heartbeat Respiratory/Chest Respiratory/Chest: Reports other Details: Wheezing ; Denies cough, dyspnea or dyspnea on exertion Gastrointestinal Gastrointestinal: Denies abdominal pain, diarrhea, nausea or vomiting Genitourinary Genitourinary ED: Denies dysuria, hematuria or urinary frequency Musculoskeletal Musculoskeletal: Denies back pain, extremity pain or neck pain Integumentary Denies rash or wounds Neurologic Neurologic: Denies headache(s), paresthesias or weakness Psychiatric Psychiatric: Denies suicidal ideation or suicidal thoughts EXAM Physical Exam Const Vital Signs: 09/30/23 15:55 09/30/23 16:07 Temperature 98.6 F Temperature Source Temporal Pulse Rate 106 H Respiratory Rate 18 Respiratory Effort Normal Respiratory Pattern Normal Blood Pressure 155/93 H Blood Pressure Mean 113 Pulse Ox 96 Oxygen Delivery Method Room Air Positive well nourished and well developed Constitutional Narrative: Agitation however was answering questions appropriately. Nontoxic. General Appearance ED: well developed and NAD HEENT Reports moist mucous membranes normocephalic and atraumatic Eyes PERRL, EOMs intact bilaterally and conjunctivae normal General Eye ED: Yes normal appearance of both eyes Neck no lymphadenopathy and supple General: Negative for tenderness Chest Wall Chest: Negative for tenderness Resp normal respiratory effort and normal air movement Resp Narrative: Inspiratory wheezing bilaterally, no distress. Effort and Inspection: symmetric chest movement; Negative for respiratory distress Cardio regular rate, regular rhythm and no murmurs Peripheral Pulses: pulses 2+ throughout GI normal to inspection, nondistended, normoactive bowel sounds and non-tender Palpation: Negative for guarding or rebound tenderness present Back/Spine no CVA tenderness and no thoracic nor lumbar tenderness Extremity normal to inspection General Extremety ED: Negative for edema or tenderness General Extremity: Negative for edema Neuro oriented x3 and no sensory deficits noted Sensorium / Orientation: awake and alert Skin no rashes or lesions noted and no wounds MDM MDM MDM Narrative Medical decision making narrative: Interventions / MDM: Differential diagnosis: COPD, bronchospasm, anxiety Diagnosis considered but do not suspect: Denies suicidal or homicidal ideations. My EKG interpretation: N/A Imaging independently reviewed and interpreted by myself: N/A External documents reviewed: N/A Test considered but not ordered:N/A ED course: Patient Slightly agitated during questioning however is nontoxic she denies suicidal homicidal ideations. Records reviewed does have anxiety and bipolar history. Noted wheezing with tobacco history. No acute distress denies any cough symptoms. She agreed with inhaler in the ED. requesting Ativan, discussed with her last time she is received that she states been years ago. Discussed can use alternative for hydroxyzine. She states we can write the prescription however she will not fill. She will be dispensed with the inhaler she is not suicidal or homicidal, she is capable of making decisions. I will write prescription for her to choose to fill. She will be given follow-up as an outpatient. Do not feel further workup is necessary. Re-evaluation: stable Disposition discussed with patient/family/significant other: Patient Case discussed with consulting clinician: N/A This note was generated with [employer] dictation software. It may contain incorrect words, spelling, and punctuation that were not noted in checking the note before signing. Discharge Plan Triage Chief Complaint: General Illness ED Provider: Scotty Murry Dx/Rx/DC Orders Clinical Impression: History of bipolar disorder, History of tobacco use, Bronchospasm, COPD (chronic obstructive pulmonary disease), Anxiety Instructions: Anxiety Disorders Meds, COPD Meds, ED Bronchospasm (Adult), ED How to Quit Smoking Prescriptions: New hydroxyzine HCl 25 mg tablet 25 mg PO TID PRN (Reason: anxiety) Qty: 20 0RF No Action sertraline 100 mg tablet 100 mg PO DAILY aripiprazole 10 mg tablet 10 mg PO DAILY albuterol sulfate [ProAir HFA] 90 mcg/actuation HFA aerosol inhaler 1 inh inhalation Q6H PRN (Reason: shortness of breath or wheezing) Qty: 6.7 0RF lorazepam [Ativan] 1 mg tablet 1 mg PO DAILY PRN (Reason: anxiety) Qty: 5 0RF lorazepam [Ativan] 1 mg tablet 1 mg PO TID PRN (Reason: anxiety) Qty: 10 0RF Mucinex 1,200 mg tablet extended release 12hr 1,200 mg PO BID Qty: 20 0RF ofloxacin 0.3 % drops 1 drp LEFT EYE Q6H Qty: 10 0RF ketorolac 0.4 % drops 1 drp LEFT EYE Q6H 5 Days Qty: 20 0RF Primary Care Provider: Care Physician,No Primary Referrals: Domonique Lubin [Non-Staff] - 3-5 Days Care Physician,No Primary [Primary Care Provider] - Disposition Disposition: Home, Self Care Discharge Date/Time: 09/30/23 16:23
[2023-09-30 15:55] VITALS: BP 155/93; PULSE 106; RESP 18; TEMP 37; O2SAT 96; BMI 21.4
[2023-09-30] MEDS: Albuterol Sulfate 8 gm Inhaler (60 puffs) 2 PUFF INHALATION (16:20)
== END 2023-09-30 16:23 | disposition home or self-care (01) ==
PROVIDERS: Emergency Provider Emergency Medicine; Visit Provider Emergency Medicine
DX: J98.01 Acute bronchospasm (principal); F31.9 Bipolar disorder, unspecified; J44.9 Chronic obstructive pulmonary disease, unspecified; F41.9 Anxiety disorder, unspecified; F17.210 Nicotine dependence, cigarettes, uncomplicated; F17.290 Nicotine dependence, other tobacco product, uncomplicated
CPT/HCPCS: 99282

== ENCOUNTER 2023-10-28 16:47 | Emergency (ER) | payer MEDICARE, MEDICAID, SELFPAY ==
[2023-10-28 16:49] VITALS: BP 157/98; PULSE 113; RESP 18; TEMP 36.3; O2SAT 96; BMI 20.8
--- NOTE | 2023-10-28 17:21 | EDS_ITS ---
HPI <LEMUEL Quijano - Last Filed: 10/28/23 20:41> History of Present Illness Chief Complaint: Mental Health Narrative Narrative: Patient is a 48-year-old female with history of anxiety, depression, methamphetamine abuse, history of multiple mental illness admissions presented to the emergency department via police. Patient was trespassing where she was not supposed to be at a hotel or a [employer] was lashing out at customers and staff and was brought here via [facility]. Patient states that she was admitted in [place] 1 to 2 weeks ago, when she left, she did not take any of the medications they prescribed. She does see the counseling center here, however patient states she does not trust anybody does not take any other medication. She denies any suicidal homicidal ideations. Patient denies any recent fever or chills. Patient dates she does smoke methamphetamines, last time was today. [facility] <LEMUEL Quijano - Last Filed: 10/28/23 20:41> [facility] Medical History Anxiety Bipolar 1 disorder Psychosis Home Medications ?Medication ?Instructions ?Recorded ?Last Taken ?Type aripiprazole 10 mg tablet 10 mg PO DAILY 05/22/21 Unknown History sertraline 100 mg tablet 100 mg PO DAILY 05/22/21 Unknown History albuterol sulfate 90 mcg/actuation 1 inh inhalation Q6H PRN shortness 02/20/22 Unknown Rx aerosol inhaler (ProAir HFA) of breath or wheezing #6.7 grams lorazepam 1 mg tablet (Ativan) 1 mg PO DAILY PRN anxiety #5 tabs 02/23/22 Unknown Rx lorazepam 1 mg tablet (Ativan) 1 mg PO TID PRN anxiety #10 tabs 02/27/22 Unknown Rx guaifenesin 1,200 mg tablet, 1,200 mg PO BID #20 tabs 08/22/22 Unknown Rx extended release 12 hr (Mucinex) ketorolac 0.4 % eye drops 1 drp LEFT EYE Q6H 5 days #20 mL 09/17/22 Unknown Rx ofloxacin 0.3 % eye drops 1 drp LEFT EYE Q6H #10 mL 09/17/22 Unknown Rx hydroxyzine HCl 25 mg tablet 25 mg PO TID PRN anxiety #20 tabs 09/30/23 Unknown Rx Allergy/AdvReac Type Severity Reaction Status Date / Time No Known Allergies Allergy Verified 10/28/23 16:48 Social History household members: none Smoking Status: Current every day smoker tobacco type: cigarettes and e- cigarettes substance use type: unknown ROS <LEMUEL Quijano - Last Filed: 10/28/23 20:41> ROS ED ROS Narrative Constitutional: Negative for fever, chills, weight loss, weakness Eyes: Negative for vision loss, vision change, double vision ENT: Negative for any sore throat, ear pain, congestion Cardiovascular: Negative for any chest pain, tightness, palpitations Respiratory: Negative for any cough, sputum production, hemoptysis, dyspnea, dyspnea on exertion, orthopnea Gastrointestinal: Negative for any abdominal pain, nausea, vomiting, diarrhea, constipation, blood in stool, blood in vomit : Negative for any urinary frequency, dysuria, retention, blood in urine Muscle skeletal: Negative for any neck pain, back pain Neurological: Negative for any headache, syncope, dizziness Skin: Negative for any rashes, itching, abrasions, lacerations Psychiatric: Negative for any depression, suicidal ideation, homicidal ideation. Positive for anxiety, stress reaction, feeling paranoid Hematologic: Negative for any excessive bruising, easy bleeding EXAM <LEMUEL Quijano - Last Filed: 10/28/23 20:41> Physical Exam Narrative Exam Narrative: Vital signs reviewed. Patient is alert and oriented x 4. Patient is manic, patient has flight of ideas, patient also has significant paranoia. She does raise her voice and curse however patient is directable. HEET: Head normocephalic atraumatic, TMs clear bilaterally. Posterior pharynx is clear, moist mucous membranes. Nares clear bilaterally. Neck: Supple with no lymphadenopathy or tenderness. No signs of meningismus. Cardiac: Tachycardic rate no murmurs gallops or rubs, equal peripheral pulses bilaterally. Respiratory: Lungs clear to auscultation bilaterally. No chest tenderness. Abdomen: Soft, nontender, nondistended. No abdominal bruit or pulsatile masses. No hepatosplenomegaly Extremities: No peripheral edema, no signs of gross trauma or deformity. Active full range of motion of all extremities. Neuro: Cranial nerves II through XII intact, no focal neurological deficits. Skin: Clean dry and intact with no rash, purpura, petechiae, vesicles or pustules. Backs/flank: No CVA tenderness, no midline spinal tenderness, no deformity. Psych: Normal mood and affect. No SI, HI or acute psychosis. Const Vital Signs: 10/28/23 16:49 10/28/23 20:48 Temperature 97.3 F L 96.9 F L Temperature Source Temporal Pulse Rate 113 H 72 Respiratory Rate 18 18 Blood Pressure 157/98 H 121/87 H Blood Pressure Mean 117 98 Pulse Ox 96 99 Oxygen Delivery Method Room Air Positive unkempt General Appearance ED: unkempt Psych Appearance: unkempt <Dr. Frankie Viera DO - Last Filed: 10/28/23 22:00> Physical Exam Const Vital Signs: 10/28/23 16:49 10/28/23 20:48 Temperature 97.3 F L 96.9 F L Temperature Source Temporal Pulse Rate 113 H 72 Respiratory Rate 18 18 Blood Pressure 157/98 H 121/87 H Blood Pressure Mean 117 98 Pulse Ox 96 99 Oxygen Delivery Method Room Air MDM <LEMUEL Quijano - Last Filed: 10/28/23 20:41> MDM Lab Data Labs: Laboratory Results - last 24 hr 10/28/23 10/28/23 17:27 18:40 WBC 9.3 RBC 4.53 Hgb 13.2 Hct 39.7 MCV 87.6 MCH 29.1 MCHC 33.2 RDW Std Deviation 42.6 RDW Coeff of Fabio 13.2 Plt Count 331 MPV 9.4 Immature Gran % (Auto) 0.200 Neut % (Auto) 57.3 Lymph % (Auto) 28.9 [place] % (Auto) 11.6 H Eos % (Auto) 1.6 Baso % (Auto) 0.4 Absolute Neuts (auto) 5.3 Absolute Lymphs (auto) 2.67 Nucleated RBC % 0 Sodium 138 Potassium 3.5 Chloride 107 Carbon Dioxide 25.0 Anion Gap 6 BUN 18 Creatinine 0.88 Estim Creat Clear Calc 54.94 Est GFR (MDRD) Af Amer 87 Est GFR (MDRD) Non-Af 72 BUN/Creatinine Ratio 20.5 H Glucose 114 H Calcium 9.2 Total Bilirubin 0.30 Direct Bilirubin 0.08 AST 20 ALT 22 Alkaline Phosphatase 96 Total Protein 7.8 Albumin 4.2 Globulin 3.6 Serum , Qual NEGATIVE Urine Opiates Screen NEGATIVE Urine Methadone Screen NEGATIVE Ur Barbiturates Screen NEGATIVE Ur Phencyclidine Scrn NEGATIVE Ur Amphetamines Screen POSITIVE H MDMA (Ecstasy) Screen POSITIVE H U Benzodiazepines Scrn NEGATIVE Urine Cocaine Screen NEGATIVE U Cannabinoids Screen POSITIVE H Ur Drug Screen Comment Ethyl Alcohol < 3.0 Treatment and Re-Evaluation :: Differential diagnosis includes however is not limited to: Manic depression, bipolar, signs of hernia, anxiety, stress reaction, drug abuse Patient is in no obvious distress, patient does appear manic, paranoid, flight of ideas. Patient's vital signs are stable. She looks nontoxic. Presenting to the emergency department with complaints of altered behavior, flight of ideas, anxiety. I spoke with the patient, I did give the patient 1 mg of oral Ativan, for this, she will receive laboratory values as well as urinalysis. Patient will need to be evaluated by crisis. At this time, patient is directable. Patient remained cooperative throughout the stay here. Patient's laboratory values show a normal CBC, patient's chemistries were unremarkable, patient is not . Her drug screen was positive for amphetamines MDMA as well as marijuana. Patient is not intoxicated. Patient did speak with crisis. The crisis counselor, attending, self we do not believe that the patient needs pink slip. The patient is acting appropriate may be discharged home with a safety plan. Patient is agreeable, she instructed to follow-up if needed. All questions answered, stable for discharge. <Dr. Frankie Viera, DO - Last Filed: 10/28/23 22:00> [facility] History & Record Review Discussion w/independent historian: Patient Lab Data Attestation: I reviewed the patient's lab results. Labs: Laboratory Results - last 24 hr 10/28/23 10/28/23 17:27 18:40 WBC 9.3 RBC 4.53 Hgb 13.2 Hct 39.7 MCV 87.6 MCH 29.1 MCHC 33.2 RDW Std Deviation 42.6 RDW Coeff of Fabio 13.2 Plt Count 331 MPV 9.4 Immature Gran % (Auto) 0.200 Neut % (Auto) 57.3 Lymph % (Auto) 28.9 [place] % (Auto) 11.6 H Eos % (Auto) 1.6 Baso % (Auto) 0.4 Absolute Neuts (auto) 5.3 Absolute Lymphs (auto) 2.67 Nucleated RBC % 0 Sodium 138 Potassium 3.5 Chloride 107 Carbon Dioxide 25.0 Anion Gap 6 BUN 18 Creatinine 0.88 Estim Creat Clear Calc 54.94 Est GFR (MDRD) Af Amer 87 Est GFR (MDRD) Non-Af 72 BUN/Creatinine Ratio 20.5 H Glucose 114 H Calcium 9.2 Total Bilirubin 0.30 Direct Bilirubin 0.08 AST 20 ALT 22 Alkaline Phosphatase 96 Total Protein 7.8 Albumin 4.2 Globulin 3.6 Serum , Qual NEGATIVE Urine Opiates Screen NEGATIVE Urine Methadone Screen NEGATIVE Ur Barbiturates Screen NEGATIVE Ur Phencyclidine Scrn NEGATIVE Ur Amphetamines Screen POSITIVE H MDMA (Ecstasy) Screen POSITIVE H U Benzodiazepines Scrn NEGATIVE Urine Cocaine Screen NEGATIVE U Cannabinoids Screen POSITIVE H Ur Drug Screen Comment Ethyl Alcohol < 3.0 Management 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 Patient's vital signs are stable. She looks nontoxic. Presenting to the emergency department with complaints of altered behavior, flight of ideas, anxiety. I spoke with the patient, I did give the patient 1 mg of oral Ativan, for this, she will receive laboratory values as well as urinalysis. Patient will need to be evaluated by crisis. At this time, patient is directable. Patient remained cooperative throughout the stay here. Patient's laboratory values show a normal CBC, patient's chemistries were unremarkable, patient is not . Her drug screen was positive for amphetamines MDMA as well as marijuana. Patient is not intoxicated. Patient did speak with crisis. The crisis counselor, attending, self we do not believe that the patient needs pink slip. The patient is acting appropriate may be discharged home with a safety plan. Patient is agreeable, she instructed to follow-up if needed. All questions answered, stable for discharge. I have personally performed a face to face assessment of the patient and have reviewed the YUMIKO Note. I performed a substantive portion of the visit including all aspects of the following. My todd findings include: History is 48-year-old female arriving by EMS where she was reportedly trespassing where she has a no trespassing order. Patient is denying suicidal homicidal ideation. She is a drug addict and currently homeless. She has not taken her medications. She notes a history of bipolar disorder and psychosis. Exam is patient is calm collected speaking with me and making eye contact. This is very different from a lot of times we have seen her before. Particularly her last visit. Patient actively denying suicidal or homicidal ideations. Medical Decison Making despite no suicidal homicidal ideation I did wish crisis to evaluate the patient case they know something more recently with her case than what I know. They do not feel that the patient can be discharged. I am agreement with this. Discharge Plan Triage Chief Complaint: Mental Health ED Midlevel Provider: Maximiliano Roman ED Provider: Frankie Viera Dx/Rx/DC Orders Clinical Impression: Mild methamphetamine abuse, Bipolar 1 disorder, Drug noncompliance Instructions: ED Bipolar Disorder, ED Drug Abuse Prescriptions: No Action sertraline 100 mg tablet 100 mg PO DAILY aripiprazole 10 mg tablet 10 mg PO DAILY albuterol sulfate [ProAir HFA] 90 mcg/actuation HFA aerosol inhaler 1 inh inhalation Q6H PRN (Reason: shortness of breath or wheezing) Qty: 6.7 0RF lorazepam [Ativan] 1 mg tablet 1 mg PO DAILY PRN (Reason: anxiety) Qty: 5 0RF lorazepam [Ativan] 1 mg tablet 1 mg PO TID PRN (Reason: anxiety) Qty: 10 0RF Mucinex 1,200 mg tablet extended release 12hr 1,200 mg PO BID Qty: 20 0RF ofloxacin 0.3 % drops 1 drp LEFT EYE Q6H Qty: 10 0RF ketorolac 0.4 % drops 1 drp LEFT EYE Q6H 5 Days Qty: 20 0RF hydroxyzine HCl 25 mg tablet 25 mg PO TID PRN (Reason: anxiety) Qty: 20 0RF Primary Care Provider: Care Physician,No Primary Referrals: Care Physician,No Primary [Primary Care Provider] - Activity Restrictions/Additional Instructions: Please follow-up at 180, follow your safety plan. Return here for any suicidal homicidal ideation Print Language: Egyptian Disposition Disposition: Home, Self Care Discharge Date/Time: 10/28/23 20:50
[2023-10-28] MEDS: LORazepam 1 MG Tablet PO (17:29)
[2023-10-28 17:36] LABS: Absolute Lymphocyte Count 2.67 X10^3/uL (0.83-4.51); Absolute Neutrophil Count 5.3 X10^3/uL (2.0-7.7); Basophil# 0.04 X10^3/uL; Basophil% 0.4 % (0-1); Eosinophil# 0.15 X10^3/uL; Eosinophils% 1.6 % (0-5); Hematocrit 39.7 % (37-47); Hemoglobin 13.2 g/dL (12.0-15.0); Lymphocyte # 2.67 X10^3/ul (0.83-4.51); Lymphocyte % 28.9 % (19-41); Mean Corp Hgb Conc 33.2 g/dL (32-36); Mean Corpuscular Hgb 29.1 pg (27.0-32.0); Mean Corpuscular Volume 87.6 fL (81-99); Mean Platelet Vol. 9.4 fl (6.2-12.0); Monocyte# 1.07 X10^3/uL; Monocyte% 11.6 % (0-10); NRBC Flagged by Analyzer 0 % (0-5); Neutrophil % 57.3 % (47-70); Platelet Count 331 K/mm3 (150-450); RBC Distribution Width CV 13.2 % (11.6-14.6); RBC Distribution Width SD 42.6 fl (35.1-43.9); Red Blood Count 4.53 M/mm3 (4.2-5.4); White Blood Count 9.3 K/mm3 (4.4-11.0)
[2023-10-28 17:43] LABS: Internal QC Validated? YES +Cl - CLEAR BKGD; Pregnancy, Serum, hCG Quali. NEGATIVE Negative
[2023-10-28 17:47] LABS: Alcohol, Blood (Medical)-Serum < 3.0 mg/dL
[2023-10-28 17:49] LABS: Anion Gap 6 (5-15); BUN 18 mg/dL (7-18); BUN/Creat Ratio 20.5 RATIO (10-20); Calcium,Total 9.2 mg/dL (8.5-10.1); Chloride 107 mmol/L (98-107); Creatinine, Serum 0.88 mg/dL (0.55-1.02); EST Glomerular Filtration Rate 72 mL/min (>60); Est Glom Filt Rate - Afr Amer 87 mL/min (>60); Estimated Creatinine Clearance 54.94 ml/min; Glucose 114 mg/dL (74-106); Potassium 3.5 mmol/L (3.5-5.1); Sodium Level 138 mmol/L (136-145)
[2023-10-28 18:07] LABS: AST(SGOT) 20 U/L (15-37); Alanine Aminotransfer ALT/SGPT 22 U/L (13-56); Albumin, Serum 4.2 g/dL (3.2-5.0); Alkaline Phosphatase 96 U/L (45-117); Bilirubin, Direct 0.08 mg/dL (0.00-0.30); Globulin 3.6 g/dL (2.2-4.2); Protein, Total 7.8 g/dL (6.4-8.2)
[2023-10-28 19:07] LABS: Amphetamine Urine VISTA POSITIVE (<1000 ng/mL); Barbiturate Urine VISTA NEGATIVE (< 200 ng/mL); Benzodiazepine Urine VISTA NEGATIVE (< 200 ng/mL); Cocaine Urine VISTA NEGATIVE (< 300 ng/mL); Ecstacy Urine VISTA POSITIVE (< 500 ng/mL); Methadone Urine VISTA NEGATIVE (< 300 ng/mL); PCP Urine VISTA NEGATIVE (< 25 ng/mL); THC Urine VISTA POSITIVE (< 50 ng/mL); Vista UDS pH Range 6
[2023-10-28 20:48] VITALS: BP 121/87; PULSE 72; RESP 18; TEMP 36.1; O2SAT 99
== END 2023-10-28 20:50 | disposition home or self-care (01) ==
PROVIDERS: Nurse Practitioner; Emergency Provider Emergency Medicine; Visit Provider Emergency Medicine
DX: F15.10 Other stimulant abuse, uncomplicated (principal); F31.9 Bipolar disorder, unspecified; F17.210 Nicotine dependence, cigarettes, uncomplicated; Z91.148 Patient's other noncompliance with medication regimen for other reason; F41.9 Anxiety disorder, unspecified; F17.290 Nicotine dependence, other tobacco product, uncomplicated; Z79.899 Other long term (current) drug therapy
CPT/HCPCS: 80048; 80076; 80307; 80320; 84703; 85025; 99282; G0480

== ENCOUNTER 2023-11-01 19:37 | Emergency (ER) | payer MEDICARE, MEDICAID, SELFPAY ==
[2023-11-01 19:38] VITALS: BP 154/101; PULSE 91; RESP 18; TEMP 36.6; O2SAT 100; BMI 21.2
--- NOTE | 2023-11-01 20:26 | ED.VIS.LOWEX ---
HPI History of Present Illness Chief Complaint: Wound Narrative Narrative: 48-year-old female presenting for evaluation of a sore on her right toe. She states has been there a couple of days. She feels like it is from her flip-flop rubbing on that area of the toe. There is a minor abrasion here. No erythema or swelling. Patient able to ambulate. No trauma. [facility] Medical History Anxiety Bipolar 1 disorder Psychosis Home Medications ?Medication ?Instructions ?Recorded ?Last Taken ?Type aripiprazole 10 mg tablet 10 mg PO DAILY 05/22/21 Unknown History sertraline 100 mg tablet 100 mg PO DAILY 05/22/21 Unknown History albuterol sulfate 90 mcg/actuation 1 inh inhalation Q6H PRN shortness 02/20/22 Unknown Rx aerosol inhaler (ProAir HFA) of breath or wheezing #6.7 grams lorazepam 1 mg tablet (Ativan) 1 mg PO DAILY PRN anxiety #5 tabs 02/23/22 Unknown Rx lorazepam 1 mg tablet (Ativan) 1 mg PO TID PRN anxiety #10 tabs 02/27/22 Unknown Rx guaifenesin 1,200 mg tablet, 1,200 mg PO BID #20 tabs 08/22/22 Unknown Rx extended release 12 hr (Mucinex) ketorolac 0.4 % eye drops 1 drp LEFT EYE Q6H 5 days #20 mL 09/17/22 Unknown Rx ofloxacin 0.3 % eye drops 1 drp LEFT EYE Q6H #10 mL 09/17/22 Unknown Rx hydroxyzine HCl 25 mg tablet 25 mg PO TID PRN anxiety #20 tabs 09/30/23 Unknown Rx bacitracin 500 unit/gram topical 1 applic topical Q8H #28 grams 11/01/23 Unknown Rx ointment Allergy/AdvReac Type Severity Reaction Status Date / Time No Known Allergies Allergy Verified 11/01/23 19:40 Social History household members: none Smoking Status: Current every day smoker tobacco type: cigarettes and e-cigarettes substance use type: unknown ROS ROS ED Constitutional Constitutional ED: Denies chills, fever(s) or sweats Eyes Eyes: Denies blurry vision or change in vision ENT ENT ED: Denies ear pain or sore throat Cardiovascular Cardiovascular: Denies chest pain, palpitations or racing heartbeat Respiratory/Chest Respiratory/Chest: Denies cough, dyspnea or sputum Gastrointestinal Gastrointestinal: Denies abdominal pain, constipation, diarrhea, nausea or vomiting Genitourinary Genitourinary ED: Denies dysuria, hematuria or urinary frequency Musculoskeletal Musculoskeletal: Denies arthralgias, myalgias or neck pain Integumentary Reports Abrasions; Denies abscess or rash Neurologic Neurologic: Denies headache(s), paresthesias or weakness Psychiatric Psychiatric: Denies anxiety, depression, suicidal ideation or suicidal thoughts Endocrine Endocrinology: Denies polydipsia or polyuria EXAM Physical Exam Const Vital Signs: 11/01/23 19:38 Temperature 97.8 F Temperature Source Temporal Pulse Rate 91 Respiratory Rate 18 Blood Pressure 154/101 H Blood Pressure Mean 118 Pulse Ox 100 Oxygen Delivery Method Room Air Positive well nourished General Appearance ED: NAD HEENT normocephalic and atraumatic Resp normal respiratory effort and no retractions Cardio regular rate and regular rhythm Extremity Extremity Narrative: There is a callus over the interphalangeal joint on the right great toe. There is a small punctate superficial abrasion proximal to this. There is no fluctuance, deformity, tenderness. There is no erythema or lymphangitic streaking. Neuro oriented x3 Sensorium / Orientation: alert Motor Exam: strength 5/5 throughout Skin Skin Narrative: As described above MDM MDM MDM Narrative Medical decision making narrative: Patient presenting for evaluation of a wound on her right great toe which appears to be a callus with a superficial abrasion. Patient's wound was cleaned and dressed with bacitracin dressing. I do not believe she is more than that. I will prescribe her a prescription for bacitracin to use as an outpatient. She is to keep this clean and dry. Return precautions discussed. Impression: 1. Abrasion Discharge Plan Triage Chief Complaint: Wound ED Provider: Kanu Patel Dx/Rx/DC Orders Instructions: ED Abrasion Prescriptions: New bacitracin 500 unit/gram ointment 1 applic topical Q8H Qty: 28 0RF No Action sertraline 100 mg tablet 100 mg PO DAILY aripiprazole 10 mg tablet 10 mg PO DAILY albuterol sulfate [ProAir HFA] 90 mcg/actuation HFA aerosol inhaler 1 inh inhalation Q6H PRN (Reason: shortness of breath or wheezing) Qty: 6.7 0RF lorazepam [Ativan] 1 mg tablet 1 mg PO DAILY PRN (Reason: anxiety) Qty: 5 0RF lorazepam [Ativan] 1 mg tablet 1 mg PO TID PRN (Reason: anxiety) Qty: 10 0RF Mucinex 1,200 mg tablet extended release 12hr 1,200 mg PO BID Qty: 20 0RF ofloxacin 0.3 % drops 1 drp LEFT EYE Q6H Qty: 10 0RF ketorolac 0.4 % drops 1 drp LEFT EYE Q6H 5 Days Qty: 20 0RF hydroxyzine HCl 25 mg tablet 25 mg PO TID PRN (Reason: anxiety) Qty: 20 0RF Primary Care Provider: Care Physician,No Primary Referrals: [facility] [Outside] - 3-5 Days Care Physician,No Primary [Primary Care Provider] - Print Language: Rwandan Disposition Disposition: Home, Self Care Discharge Date/Time: 11/01/23 20:24
== END 2023-11-01 20:24 | disposition home or self-care (01) ==
PROVIDERS: Emergency Provider Student in an Organized Health Care Education/Training Program; Visit Provider Student in an Organized Health Care Education/Training Program
DX: S90.411A Abrasion, right great toe, initial encounter (principal); L84 Corns and callosities; F17.210 Nicotine dependence, cigarettes, uncomplicated; F17.290 Nicotine dependence, other tobacco product, uncomplicated; X50.9XXA Other and unspecified overexertion or strenuous movements or postures, initial encounter
CPT/HCPCS: 99282

== ENCOUNTER 2023-11-27 13:01 | Emergency (ER) | payer MEDICARE, MEDICAID, SELFPAY ==
--- NOTE | 2023-11-27 13:17 | EX.ED.VIS.PS ---
HPI HPI - Psych History of Present Illness Chief Complaint: Mental Health Informant: patient, EMS and police/manager dialysis Narrative Narrative: Apparently patient was causing a scene at a local [employer] and was arrested and taken to half-way where they were concerned that this was something different than simply a behavioral situation, so they had crisis see her, she is known well to them due to her mental health issues, and they deemed that patient would benefit from inpatient psychiatric hospitalization to stabilize her psychosis. Therefore she was sent here for medical clearance. Not able to get any useful information out of the patient because she is hostile, screaming, and refuses to answer questions. [facility] Medical History Anxiety Bipolar 1 disorder Psychosis Home Medications ?Medication ?Instructions ?Recorded ?Last Taken ?Type aripiprazole 10 mg tablet 10 mg PO DAILY 05/22/21 Unknown History sertraline 100 mg tablet 100 mg PO DAILY 05/22/21 Unknown History albuterol sulfate 90 mcg/actuation 1 inh inhalation Q6H PRN shortness 02/20/22 Unknown Rx aerosol inhaler (ProAir HFA) of breath or wheezing #6.7 grams lorazepam 1 mg tablet (Ativan) 1 mg PO DAILY PRN anxiety #5 tabs 02/23/22 Unknown Rx lorazepam 1 mg tablet (Ativan) 1 mg PO TID PRN anxiety #10 tabs 02/27/22 Unknown Rx guaifenesin 1,200 mg tablet, 1,200 mg PO BID #20 tabs 08/22/22 Unknown Rx extended release 12 hr (Mucinex) ketorolac 0.4 % eye drops 1 drp LEFT EYE Q6H 5 days #20 mL 09/17/22 Unknown Rx ofloxacin 0.3 % eye drops 1 drp LEFT EYE Q6H #10 mL 09/17/22 Unknown Rx hydroxyzine HCl 25 mg tablet 25 mg PO TID PRN anxiety #20 tabs 09/30/23 Unknown Rx bacitracin 500 unit/gram topical 1 applic topical Q8H #28 grams 11/01/23 Unknown Rx ointment Allergy/AdvReac Type Severity Reaction Status Date / Time No Known Allergies Allergy Verified 11/27/23 13:02 Social History household members: none Smoking Status: Current every day smoker tobacco type: cigarettes and e-cigarettes substance use type: unknown ROS ROS ED Review of Systems ROS Unobtainable: due to mental condition EXAM Physical Exam Const Vital Signs: 11/27/23 14:07 Temperature 98 F Temperature Source Temporal Positive well nourished and well developed General Appearance ED: well developed and NAD HEENT Reports moist mucous membranes normocephalic and atraumatic Eyes PERRL and EOMs intact bilaterally Eyes Narrative: 2-3mm bilat Neck full ROM and supple Resp normal respiratory effort and clear to auscultation bilaterally Cardio regular rate, regular rhythm and no murmurs GI non-tender and non-distended Auscultation: normoactive bowel sounds Palpation: soft Back/Spine no CVA tenderness General Back: other FROM Extremity normal to inspection General Extremety ED: Negative for edema, pulses abnormal or tenderness General Extremity: Negative for edema or pulses abnormal Neuro CN's II-XII intact bilaterally and no sensory deficits noted Sensorium / Orientation: awake and alert Motor Exam: strength 5/5 throughout Psych Activity / Motor Behavior: disorganized and restless; Negative for appropriate eye contact Speech: loud and other Screaming expletives at staff Mood & Affect: hostile affect Thought Process: disorganized and illogical Skin no rashes or lesions noted and no wounds MDM MDM MDM Narrative Medical decision making narrative: Labs reviewed, except for positive amphetamine and cannabinoid screens, her testing is unremarkable and she is medically cleared for psychiatric evaluation. Discussed with mental health for placement. She was very hostile with staff here in the ER and in order to protect them, she was physically restrained as she was swinging at them and cursing, and given Geodon 20 mg IM. On my reevaluation she is doing much better and calm and states she will be able to rest comfortably if we let her out of restraints advised nursing to do so per protocol. Lab Data Attestation: I reviewed the patient's lab results. Labs: Laboratory Results - last 24 hr 11/27/23 11/27/23 13:26 13:32 WBC 7.6 RBC 4.53 Hgb 12.9 Hct 39.9 MCV 88.1 MCH 28.5 MCHC 32.3 RDW Std Deviation 43.7 RDW Coeff of Fabio 13.4 Plt Count 365 MPV 9.7 Immature Gran % (Auto) 0.300 Neut % (Auto) 58.1 Lymph % (Auto) 31.8 [place] % (Auto) 8.3 Eos % (Auto) 1.2 Baso % (Auto) 0.3 Absolute Neuts (auto) 4.4 Absolute Lymphs (auto) 2.42 Nucleated RBC % 0 Sodium 140 Potassium 3.4 L Chloride 107 Carbon Dioxide 23.0 Anion Gap 10 BUN 18 Creatinine 0.95 Est GFR (MDRD) Af Amer 80 Est GFR (MDRD) Non-Af 66 BUN/Creatinine Ratio 18.9 Glucose 115 H Calcium 8.9 Urine Opiates Screen NEGATIVE Urine Methadone Screen NEGATIVE Ur Barbiturates Screen NEGATIVE Ur Phencyclidine Scrn NEGATIVE Ur Amphetamines Screen POSITIVE H MDMA (Ecstasy) Screen NEGATIVE U Benzodiazepines Scrn NEGATIVE Urine Cocaine Screen NEGATIVE U Cannabinoids Screen POSITIVE H Ur Drug Screen Comment Ethyl Alcohol < 3.0 Management 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 healthcare 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 Discharge Plan Triage Chief Complaint: Mental Health ED Provider: Barry Ordaz Dx/Rx/DC Orders Clinical Impression: Acute psychosis Prescriptions: No Action sertraline 100 mg tablet 100 mg PO DAILY aripiprazole 10 mg tablet 10 mg PO DAILY albuterol sulfate [ProAir HFA] 90 mcg/actuation HFA aerosol inhaler 1 inh inhalation Q6H PRN (Reason: shortness of breath or wheezing) Qty: 6.7 0RF lorazepam [Ativan] 1 mg tablet 1 mg PO DAILY PRN (Reason: anxiety) Qty: 5 0RF lorazepam [Ativan] 1 mg tablet 1 mg PO TID PRN (Reason: anxiety) Qty: 10 0RF Mucinex 1,200 mg tablet extended release 12hr 1,200 mg PO BID Qty: 20 0RF ofloxacin 0.3 % drops 1 drp LEFT EYE Q6H Qty: 10 0RF ketorolac 0.4 % drops 1 drp LEFT EYE Q6H 5 Days Qty: 20 0RF hydroxyzine HCl 25 mg tablet 25 mg PO TID PRN (Reason: anxiety) Qty: 20 0RF bacitracin 500 unit/gram ointment 1 applic topical Q8H Qty: 28 0RF Primary Care Provider: Care Physician,No Primary Referrals: Care Physician,No Primary [Primary Care Provider] - Print Language: Vietnamese Disposition Disposition: Psychiatric Hospital or Unit
[2023-11-27 13:43] LABS: Absolute Lymphocyte Count 2.42 X10^3/uL (0.83-4.51); Absolute Neutrophil Count 4.4 X10^3/uL (2.0-7.7); Basophil# 0.02 X10^3/uL; Basophil% 0.3 % (0-1); Eosinophil# 0.09 X10^3/uL; Eosinophils% 1.2 % (0-5); Hematocrit 39.9 % (37-47); Hemoglobin 12.9 g/dL (12.0-15.0); Lymphocyte # 2.42 X10^3/ul (0.83-4.51); Lymphocyte % 31.8 % (19-41); Mean Corp Hgb Conc 32.3 g/dL (32-36); Mean Corpuscular Hgb 28.5 pg (27.0-32.0); Mean Corpuscular Volume 88.1 fL (81-99); Mean Platelet Vol. 9.7 fl (6.2-12.0); Monocyte# 0.63 X10^3/uL; Monocyte% 8.3 % (0-10); NRBC Flagged by Analyzer 0 % (0-5); Neutrophil # 4.44 X10^3/uL (2.7-7.7); Neutrophil % 58.1 % (47-70); Platelet Count 365 K/mm3 (150-450); RBC Distribution Width CV 13.4 % (11.6-14.6); RBC Distribution Width SD 43.7 fl (35.1-43.9); Red Blood Count 4.53 M/mm3 (4.2-5.4); White Blood Count 7.6 K/mm3 (4.4-11.0)
[2023-11-27] MEDS: Ziprasidone IM 20 MG/ML VIAL IM (13:51)
[2023-11-27 14:02] LABS: Alcohol, Blood (Medical)-Serum < 3.0 mg/dL; Anion Gap 10 (5-15); BUN 18 mg/dL (7-18); BUN/Creat Ratio 18.9 RATIO (10-20); Calcium,Total 8.9 mg/dL (8.5-10.1); Chloride 107 mmol/L (98-107); Creatinine, Serum 0.95 mg/dL (0.55-1.02); EST Glomerular Filtration Rate 66 mL/min (>60); Est Glom Filt Rate - Afr Amer 80 mL/min (>60); Glucose 115 mg/dL (74-106); Potassium 3.4 mmol/L (3.5-5.1); Sodium Level 140 mmol/L (136-145)
[2023-11-27 14:07] VITALS: TEMP 36.6; BMI 21.1
[2023-11-27 14:10] LABS: Amphetamine Urine VISTA POSITIVE (<1000 ng/mL); Barbiturate Urine VISTA NEGATIVE (< 200 ng/mL); Benzodiazepine Urine VISTA NEGATIVE (< 200 ng/mL); Cocaine Urine VISTA NEGATIVE (< 300 ng/mL); Ecstacy Urine VISTA NEGATIVE (< 500 ng/mL); Methadone Urine VISTA NEGATIVE (< 300 ng/mL); PCP Urine VISTA NEGATIVE (< 25 ng/mL); THC Urine VISTA POSITIVE (< 50 ng/mL); Vista UDS pH Range 6
--- NOTE | 2023-11-27 14:13 | ED.RN ---
Pt screaming and cursing at staff, threatening harm, throwing personal belongings. Pt refuses to cooperate, is a direct threat to staff, unable to redirect, behavior escalating despite HRO and security at bedside. Pt has history of violence towards staff.
[2023-11-27 20:42] VITALS: BP 107/62; PULSE 83; RESP 16; TEMP 36.6; O2SAT 95
[2023-11-27 20:43] VITALS: BP 107/62; PULSE 83; RESP 16; O2SAT 95
== END 2023-11-27 20:44 ==
PROVIDERS: Emergency Provider Emergency Medicine; Visit Provider Emergency Medicine
DX: F23 Brief psychotic disorder (principal); F17.210 Nicotine dependence, cigarettes, uncomplicated; F17.290 Nicotine dependence, other tobacco product, uncomplicated
CPT/HCPCS: 80048; 80307; 80320; 85025; 96372; 99285; G0480; J3486

== ENCOUNTER 2023-12-20 15:32 | Emergency (ER) | payer MEDICARE, MEDICAID, SELFPAY ==
[2023-12-20 15:34] VITALS: BP 144/118; PULSE 116; TEMP 36
[2023-12-20] MEDS: LORazepam 1 MG Tablet PO (16:22)
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
--- NOTE | 2023-12-20 16:32 | EX.ED.VIS.PS ---
HPI HPI - Psych History of Present Illness Chief Complaint: Mental Health Narrative Narrative: 48-year-old female with history of bipolar disorder presenting with anxiety. She is unwilling to talk to me. She appears to be internally stimulated. She is requesting Ativan. Denies SI or HI. PFSH PFSH Medical History Anxiety Bipolar 1 disorder Psychosis Home Medications ?Medication ?Instructions ?Recorded ?Last Taken ?Type aripiprazole 10 mg tablet 10 mg PO DAILY 05/22/21 Unknown History sertraline 100 mg tablet 100 mg PO DAILY 05/22/21 Unknown History lorazepam 1 mg tablet (Ativan) 1 mg PO DAILY PRN anxiety #5 tabs 02/23/22 Unknown Rx lorazepam 1 mg tablet (Ativan) 1 mg PO TID PRN anxiety #10 tabs 02/27/22 Unknown Rx guaifenesin 1,200 mg tablet, 1,200 mg PO BID #20 tabs 08/22/22 Unknown Rx extended release 12 hr (Mucinex) ketorolac 0.4 % eye drops 1 drp LEFT EYE Q6H 5 days #20 mL 09/17/22 Unknown Rx ofloxacin 0.3 % eye drops 1 drp LEFT EYE Q6H #10 mL 09/17/22 Unknown Rx hydroxyzine HCl 25 mg tablet 25 mg PO TID PRN anxiety #20 tabs 09/30/23 Unknown Rx bacitracin 500 unit/gram topical 1 applic topical Q8H #28 grams 11/01/23 Unknown Rx ointment aripiprazole 5 mg tablet (Abilify) 5 mg PO DAILY 11/27/23 Unknown History Allergy/AdvReac Type Severity Reaction Status Date / Time No Known Allergies Allergy Verified 12/20/23 15:34 Social History household members: none Smoking Status: Current every day smoker tobacco type: cigarettes and e-cigarettes substance use type: unknown ROS ROS ED Constitutional Constitutional ED: Denies chills, fever(s) or sweats Eyes Eyes: Denies blurry vision or change in vision ENT ENT ED: Denies ear pain or sore throat Cardiovascular Cardiovascular: Denies chest pain, palpitations or racing heartbeat Respiratory/Chest Respiratory/Chest: Denies cough, dyspnea or sputum Gastrointestinal Gastrointestinal: Denies abdominal pain, constipation, diarrhea, nausea or vomiting Genitourinary Genitourinary ED: Denies dysuria, hematuria or urinary frequency Musculoskeletal Musculoskeletal: Denies arthralgias, myalgias or neck pain Integumentary Denies abscess, Abrasions or rash Neurologic Neurologic: Denies headache(s), paresthesias or weakness Psychiatric Psychiatric: Reports anxiety and depression; Denies suicidal ideation or suicidal thoughts Endocrine Endocrinology: Denies polydipsia or polyuria EXAM Physical Exam Const Vital Signs: 12/20/23 15:34 12/20/23 21:55 Temperature 96.8 F L 97.1 F L Temperature Source Temporal Temporal Pulse Rate 116 H 85 Respiratory Rate 18 Blood Pressure 144/118 H 100/72 Blood Pressure Mean 126 81 Pulse Ox 99 Oxygen Delivery Method Room Air Positive well nourished and unkempt General Appearance ED: unkempt, irritable and NAD; Negative for pallor HEENT Reports moist mucous membranes normocephalic Eyes PERRL and EOMs intact bilaterally Resp normal respiratory effort Cardio Rate: regular rate Rhythm: regular rhythm Extremity normal to inspection Neuro oriented x3 and CN's II-XII intact bilaterally Psych Appearance: unkempt and bizarre Attitude: bizarre, evasive and agitated Activity / Motor Behavior: psychomotor agitation and disorganized Mood & Affect: irritable Thought Process: circumstantial, disorganized and confused Thought Content: No suicidality and No homicidality Attention / Concentration: attention grossly impaired Memory / Cognition: memory grossly impaired and cognition impaired Insight: poor Judgement: poor Skin General Skin Exam: Negative for jaundice or pallor MDM MDM MDM Narrative Medical decision making narrative: 48-year-old female presenting with agitation. She is unwilling to talk to either me or the social media assistant. I she appears to be in acute psychosis by speaking. He cannot contract for safety. 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 She is also concerned that the patient probably is not taking her medications and that is why she presents like this today. We obtained screening lab work which was unremarkable and she is medically cleared and the plan is to admit her to a psychiatric facility for stabilization. Impression: 1. Acute psychosis Lab Data Attestation: I reviewed the patient's lab results. Labs: Laboratory Results - last 24 hr 12/20/23 12/20/23 17:10 17:42 WBC 10.4 RBC 4.53 Hgb 12.9 Hct 39.5 MCV 87.2 MCH 28.5 MCHC 32.7 RDW Std Deviation 43.1 RDW Coeff of Fabio 13.3 Plt Count 410 MPV 9.3 Immature Gran % (Auto) 0.400 Neut % (Auto) 65.9 Lymph % (Auto) 24.1 [place] % (Auto) 7.6 Eos % (Auto) 1.5 Baso % (Auto) 0.5 Absolute Neuts (auto) 6.9 Absolute Lymphs (auto) 2.51 Nucleated RBC % 0 Sodium 139 Potassium 3.2 L Chloride 104 Carbon Dioxide 28.0 Anion Gap 7 BUN 13 Creatinine 0.70 Estim Creat Clear Calc 68.16 Est GFR (MDRD) Af Amer 114 Est GFR (MDRD) Non-Af 94 BUN/Creatinine Ratio 18.7 Glucose 112 H Calcium 9.5 Serum , Qual NEGATIVE Urine Opiates Screen NEGATIVE Urine Methadone Screen NEGATIVE Ur Barbiturates Screen NEGATIVE Ur Phencyclidine Scrn NEGATIVE Ur Amphetamines Screen POSITIVE H MDMA (Ecstasy) Screen POSITIVE H U Benzodiazepines Scrn NEGATIVE Urine Cocaine Screen NEGATIVE U Cannabinoids Screen POSITIVE H Ur Drug Screen Comment Ethyl Alcohol < 3.0 Discharge Plan Triage Chief Complaint: Mental Health ED Provider: Kanu Patel Dx/Rx/DC Orders Prescriptions: No Action sertraline 100 mg tablet 100 mg PO DAILY aripiprazole 10 mg tablet 10 mg PO DAILY lorazepam [Ativan] 1 mg tablet 1 mg PO DAILY PRN (Reason: anxiety) Qty: 5 0RF lorazepam [Ativan] 1 mg tablet 1 mg PO TID PRN (Reason: anxiety) Qty: 10 0RF Mucinex 1,200 mg tablet extended release 12hr 1,200 mg PO BID Qty: 20 0RF ofloxacin 0.3 % drops 1 drp LEFT EYE Q6H Qty: 10 0RF ketorolac 0.4 % drops 1 drp LEFT EYE Q6H 5 Days Qty: 20 0RF aripiprazole [Abilify] 5 mg tablet 5 mg PO DAILY hydroxyzine HCl 25 mg tablet 25 mg PO TID PRN (Reason: anxiety) Qty: 20 0RF bacitracin 500 unit/gram ointment 1 applic topical Q8H Qty: 28 0RF Primary Care Provider: Care Physician,No Primary Referrals: Care Physician,No Primary [Primary Care Provider] - Print Language: Yakut
--- NOTE | 2023-12-20 16:38 | ED.RN ---
2 STRAIGHT STICK ATTEMPTS FOR BLOOD SPECIMENS. UNABLE TO COLLECT BLOOD. PT CONTINUES TO PULL ARM AWAY FROM NEEDS. CHARGE NURSE, ARMANDO NOTIFIED
--- NOTE | 2023-12-20 16:43 | ED.RN ---
UNABLE TO OBTAIN ALL THE BLOOD WORK AND PT IS BECOMING MORE IRRITATED. TAKING A BREAK AND GIVING PT A SANDWICH IN HOPE ATIVAN WILL HELP PT RELAX WHEN ANOTHER ATTEMPT IS MADE.
[2023-12-20 17:42] LABS: Amphetamine Urine VISTA POSITIVE (<1000 ng/mL); Barbiturate Urine VISTA NEGATIVE (< 200 ng/mL); Benzodiazepine Urine VISTA NEGATIVE (< 200 ng/mL); Cocaine Urine VISTA NEGATIVE (< 300 ng/mL); Ecstacy Urine VISTA POSITIVE (< 500 ng/mL); Methadone Urine VISTA NEGATIVE (< 300 ng/mL); PCP Urine VISTA NEGATIVE (< 25 ng/mL); THC Urine VISTA POSITIVE (< 50 ng/mL); Vista UDS pH Range 7
--- NOTE | 2023-12-20 17:49 | ED.RN ---
Clothing and personal belonings removed from room. blood drawn.
[2023-12-20 17:55] LABS: Absolute Lymphocyte Count 2.51 X10^3/uL (0.83-4.51); Absolute Neutrophil Count 6.9 X10^3/uL (2.0-7.7); Basophil# 0.05 X10^3/uL; Basophil% 0.5 % (0-1); Eosinophil# 0.16 X10^3/uL; Eosinophils% 1.5 % (0-5); Hematocrit 39.5 % (37-47); Hemoglobin 12.9 g/dL (12.0-15.0); Lymphocyte # 2.51 X10^3/ul (0.83-4.51); Lymphocyte % 24.1 % (19-41); Mean Corp Hgb Conc 32.7 g/dL (32-36); Mean Corpuscular Hgb 28.5 pg (27.0-32.0); Mean Corpuscular Volume 87.2 fL (81-99); Mean Platelet Vol. 9.3 fl (6.2-12.0); Monocyte# 0.79 X10^3/uL; Monocyte% 7.6 % (0-10); NRBC Flagged by Analyzer 0 % (0-5); Neutrophil # 6.87 X10^3/uL (2.7-7.7); Neutrophil % 65.9 % (47-70); Platelet Count 410 K/mm3 (150-450); RBC Distribution Width CV 13.3 % (11.6-14.6); RBC Distribution Width SD 43.1 fl (35.1-43.9); Red Blood Count 4.53 M/mm3 (4.2-5.4); White Blood Count 10.4 K/mm3 (4.4-11.0)
[2023-12-20 18:04] LABS: Internal QC Validated? YES +Cl - CLEAR BKGD; Pregnancy, Serum, hCG Quali. NEGATIVE Negative
[2023-12-20 18:07] LABS: Alcohol, Blood (Medical)-Serum < 3.0 mg/dL
[2023-12-20 18:08] LABS: Anion Gap 7 (5-15); BUN 13 mg/dL (7-18); BUN/Creat Ratio 18.7 RATIO (10-20); Calcium,Total 9.5 mg/dL (8.5-10.1); Chloride 104 mmol/L (98-107); EST Glomerular Filtration Rate 94 mL/min (>60); Est Glom Filt Rate - Afr Amer 114 mL/min (>60); Estimated Creatinine Clearance 68.16 ml/min; Glucose 112 mg/dL (74-106); Potassium 3.2 mmol/L (3.5-5.1); Sodium Level 139 mmol/L (136-145)
[2023-12-20 21:55] VITALS: BP 100/72; PULSE 85; RESP 18; TEMP 36.2; O2SAT 99
--- NOTE | 2023-12-20 23:44 | ED.RN ---
Spoke to Koko Wilde about pt's PMH and behavior during current RN's shift. Koko Wilde stated the will be calling crisis back
[2023-12-21 01:00] VITALS: BP 90/62; PULSE 62; RESP 18; O2SAT 93
[2023-12-21 05:00] VITALS: BP 100/50; PULSE 88; RESP 16; O2SAT 98
[2023-12-21] MEDS: LORazepam 1 MG Tablet PO ×2 (06:35→09:29)
[2023-12-21 09:00] VITALS: BP 101/52; PULSE 82; RESP 14; O2SAT 98
--- NOTE | 2023-12-21 09:39 | NURSING ---
CRIS[facility] HAS BEEN CALLING [place]. CHART IS STILL UNDER REVIEW
--- NOTE | 2023-12-21 10:00 | NURSING ---
ACCEPTED AT [facility] NURSE TO NURZE [phone]
--- NOTE | 2023-12-21 10:04 | NURSING ---
CALLED [facility], ETA IS 2 TO 3 HOURS
[2023-12-21 12:39] VITALS: BP 85/64; PULSE 74; RESP 16; TEMP 36.6; O2SAT 99
== END 2023-12-21 12:42 ==
PROVIDERS: Emergency Provider Student in an Organized Health Care Education/Training Program; Visit Provider Student in an Organized Health Care Education/Training Program
DX: F23 Brief psychotic disorder (principal); F31.9 Bipolar disorder, unspecified; F41.9 Anxiety disorder, unspecified; F17.290 Nicotine dependence, other tobacco product, uncomplicated; F17.210 Nicotine dependence, cigarettes, uncomplicated; R45.1 Restlessness and agitation; F14.90 Cocaine use, unspecified, uncomplicated; F15.90 Other stimulant use, unspecified, uncomplicated; Z79.899 Other long term (current) drug therapy
CPT/HCPCS: 80048; 80307; 82077; 84703; 85025; 99285

== ENCOUNTER → 2025-02-19 | Outpatient (CLI) | payer MEDICARE, MEDICAID, SELFPAY ==
[2025-02-19 09:30] LABS: Hematocrit 38.3 % (37-47); Hemoglobin 12.5 g/dL (12.0-15.0); Immature Granulocytes Count 0.030 X10^3/uL (0.0-0.0); Mean Corp Hgb Conc 32.6 g/dL (32-36); Mean Corpuscular Volume 89.5 fL (81-99); Mean Platelet Vol. 9.6 fl (6.2-12.0); NRBC Flagged by Analyzer 0 % (0-5); Platelet Count 315 K/mm3 (150-450); RBC Distribution Width CV 13.2 % (11.6-14.6); RBC Distribution Width SD 43.6 fl (35.1-43.9); Red Blood Count 4.28 M/mm3 (4.2-5.4); White Blood Count 7.8 K/mm3 (4.4-11.0)
[2025-02-19 10:10] LABS: AST(SGOT) 23 U/L (<=31); Alanine Aminotransfer ALT/SGPT 21 U/L (<=34); Albumin, Serum 4.3 g/dL (3.5-5.0); Alkaline Phosphatase 87 U/L (35-104); Anion Gap 11 (5-15); BUN 13 mg/dL (4-19); BUN/Creat Ratio 21.4 RATIO (10-20); Calcium,Total 9.3 mg/dL (7.6-11.0); Carbon Dioxide 23.9 mmol/L (21.0-32.0); Chloride 104 mmol/L (98-108); Cholesterol 226 mg/dL (<=200); Globulin 2.6 g/dL (2.2-4.2); Glucose 94 mg/dL (70-99); Low Density Lipoprotein Calc. 130 mg/dL; Potassium 4.1 mmol/L (3.3-5.1); Triglycerides 162 mg/dL; Very Low Density Lipoprotein 32 mg/dL (5-40); cholesterol:hdl ratio screen 3.55
== END | disposition home or self-care (01) ==
LOC: LAB 08:39
PROVIDERS: Referring Provider Psychiatry & Neurology Psychiatry; Visit Provider Psychiatry & Neurology Psychiatry
DX: Z79.899 Other long term (current) drug therapy (principal)
CPT/HCPCS: 36415; 80053; 80061; 83036; 84443; 85025